=== PATIENT | male | born 1975 | race Caucasian/White ===

== ENCOUNTER 2018-04-22 16:52 | Outpatient (CLI) | payer BC, SELFPAY ==
[2018-04-22 17:28] LABS: Abs Immature Grans 0.02 k/cumm (0.0-0.09); Absolute Basophil Count 0.03 k/cumm (0.0-0.2); Absolute Eosinophil Count 0.18 k/cumm (0.0-0.7); Absolute Lymphocyte Count 2.54 k/cumm (1.2-3.4); Absolute Monocyte Count 0.61 k/cumm (0.11-0.7); Absolute Neutrophil Count 4.59 k/cumm (1.2-6.7); Basophils % 0.4; Eosinophils % 2.3; HCT 43.2 % (40.0-50.0); HGB 15.4 g/dL (13.5-17.5); Immature Grans % 0.3; Lymphocytes % 31.9; Mean Corp. HGB Concentration 35.6 g/dL (32.0-36.0); Mean Corpuscular Hemoglobin 31.6 pg (27.0-33.0); Mean Corpuscular Volume 88.5 fL (80-95); Mean Platelet Volume 9.3 fL (8.0-11.0); Monocytes % 7.7; Neutrophils % 57.4; Platelet Count 206 x1000/uL (130-400); RBC 4.88 m/cumm (4.50-6.00); RBC Distribution Width 12.5 % (11.8-14.1); White Blood Cell Count 7.97 k/cumm (4.4-10.8)
[2018-04-22 18:36] LABS: ALT 50 U/L (12-78); AST 30 U/L (15-37); Albumin 4.1 g/dL (3.4-5.0); Alkaline Phosphatase 71 U/L (46-116); Anion Gap 8.9 mmol/L (3-11); BUN 16 mg/dL (7-18); Bilirubin, Total 0.4 mg/dL (0.2-1.0); CO2 29.1 mmol/L (21.0-32.0); CREATININE 1.22 mg/dL (0.70-1.30); Calcium 8.6 mg/dL (8.5-10.1); Chloride 101 mmol/L (98-107); Glucose 113 mg/dL (70-100); Potassium 3.5 mmol/L (3.5-5.1); Sodium 139 mmol/L (136-145); Total Protein 7.2 g/dL (6.4-8.2)
[2018-04-22 20:46] LABS: Bilirubin Negative (Negative); Blood Negative (Negative); Clarity Clear; Glucose Negative (Negative); Ketones Trace mg/dL (Negative); Leukocyte Esterase Negative (Negative); Nitrite Negative (Negative); Specific Gravity >= 1.030 (1.005-1.025); Urobilinogen 0.2 EU/dL (Up TO 0.2); pH 5.5 (5-8)
[2018-04-24 08:44] LABS: PSA, Screening 0.7 ng/ml (0-2.5)
== END 2018-04-22 17:12 ==
PROVIDERS: PCP Family Medicine; Visit Provider Family Medicine
DX: N40.1 Benign prostatic hyperplasia with lower urinary tract symptoms (principal); Z12.5 Encounter for screening for malignant neoplasm of prostate; K29.60 Other gastritis without bleeding
CPT/HCPCS: 36415; 80053; 84153; 81003; 85025

== ENCOUNTER 2019-01-26 09:15 | Day surgery (SDC) | payer BC, SELFPAY ==
[2019-01-26] MEDS: Lactated Ringers 1,000 ML 80 ML IV (09:21)
[2019-01-26 09:31] VITALS: BP 131/89; PULSE 74; RESP 16; TEMP 36.5; O2SAT 99
[2019-01-26] MEDS: Sodium Citrate 30 ML CUP (12:30)
--- NOTE | 2019-01-26 13:14 | W.PM.DSUDISC ---
Discharge Plan Disposition Patient Disposition: HOME Condition: Good Discharge Details Reason For Visit: Colonoscopy Attending Provider: Cora Choi Primary Care Provider: Marc Arguelles Home Meds and New Rx's Prescriptions: Continued zinc [Chelated Zinc] 50 mg tablet 50 mg PO DAILY RF: 0 dutasteride 0.5 mg capsule 0.5 mg PO DAILY Qty: 30 RF: 11 albuterol sulfate [Ventolin HFA] 90 mcg/actuation HFA aerosol inhaler 2 puff IH Q4H PRN (Reason: shortness of breath or wheezing) Qty: 8.5 RF: 0 ibuprofen [IBU] 400 mg tablet 400 mg PO QID PRNRF: 0 Men's Daily Multivit-Mineral 0.4-600 mg-mcg tablet PO DAILY RF: 0 tamsulosin 0.4 mg capsule 0.4 mg PO HS Qty: 30 RF: 11 omeprazole 40 MG capsule,delayed release(DR/EC) 40 mg PO DAILY@0730 RF: 0 Discharge Instructions Additional Instructions: Findings: Mild diverticulosis was present. May sure to take in 30 grams of fiber daily. Your bleeding is from internal hemorrhoids. If a flare up occurs, it is okay to use Preparation H as needed. Follow up: Plan for a colonoscopy in 10 years Please call if you develop: fevers >101.5 Nausea or Vomiting Abdominal pain that is not transient DAY SURGERY UNIT POST COLONOSCOPY INSTRUCTIONS 1. Because there will be medication in your system for the next 24 hours, you may feel a little sleepy. Your coordination will be affected. Therefore: a. Do not drive or operate dangerous equipment for 24 hours. b. Do not drink alcohol beverages for 24 hours (not even beer). c. Plan to go home and rest for the day. 2. Generally there are no restrictions on your activity after a day or so has gone by, but you may feel a bit fatigued for a few days. 3 After you arrive home you may have a light meal and return to a normal diet as you can tolerate it without feeling sick to your stomach. 4. After surgery, you may feel pain or discomfort. This should be only transient, but if it persists please contact your doctor. 5. If there are any questions regarding the findings of your procedure, please feel free to contact your doctor. 6. If you are unable to contact your doctor with a problem, contact the hospital at [phone]. 7. Continue all your regular medications unless directed otherwise. I understand the above instructions and have no questions. Signature of Patient or Responsible Adult Escort Date/Time Name of Responsible Adult Escort Signature of Nurse Date/Time Activity:: Activity as Tolerated Diet:: High fiber Discharge Orders Discharge Orders: Discharge Order (Routine); Ordered 01/26/19 Ordered By: Cora Choi DS: Diagnosis Discharge Diagnosis (1) Diverticulosis: Status: Acute
[2019-01-26 13:40] VITALS: BP 122/88; PULSE 70; RESP 16; TEMP 36.2; O2SAT 98
--- NOTE | 2019-01-26 15:15 | COLE_ITS ---
DATE OF PROCEDURE: January 26, 2019 PREOPERATIVE DIAGNOSIS: 1. Rectal bleeding. 2. History of colon polyps. POSTOPERATIVE DIAGNOSIS: 1. Mild diverticulosis. 2. Internal hemorrhoids. PROCEDURE: Colonoscopy. SURGEON: Cora Choi M.D. ANESTHESIA: General. INDICATIONS: This is a 43-year-old man whose last colonoscopy in 2008 showed polyps. The patient jaime s intermittent episodes of rectal bleeding that will last a week or so. He had one recently that res olved spontaneously. PROCEDURE: He was placed in the left [place] position. Propofol was titrated to sedation. Digital rec fabian examination revealed no abnormalities. The scope was advanced to the cecum without difficulty. The ileocecal valve and appendiceal orifice were clearly identified. His prep was excellent. The sc ope was slowly withdrawn with no abnormalities seen within the ascending, transverse or descending co ashley. He was noted to have mild sigmoid diverticulosis. The rectum was normal, including on retrofle x view. He was noted to have prominent internal hemorrhoids, which are the likely source of bleeding . He tolerated the procedure well and was stable to recovery. He was advised to increase fiber inta ke and use Preparation H as needed for bleeding. He should have a follow-up colonoscopy again in ten years. cc: Marc Arguelles M.D.
== END 2019-01-26 13:53 | disposition home or self-care (01) ==
PROVIDERS: PCP Family Medicine; Visit Provider Surgery
PROC: 0DJD8ZZ Inspection of Lower Intestinal Tract, Via Natural or Artificial Opening Endoscopic (ICD-10-PCS; CPT 45378; principal; 2019-01-26 12:15)
DX: K62.5 Hemorrhage of anus and rectum (principal); Z86.010 Personal history of colon polyps; K57.30 Diverticulosis of large intestine without perforation or abscess without bleeding; K64.8 Other hemorrhoids; K21.9 Gastro-esophageal reflux disease without esophagitis
CPT/HCPCS: 45378

== ENCOUNTER 2019-07-01 16:19 | Outpatient (CLI) | payer OTHER, SELFPAY ==
[2019-07-01 16:44] LABS: HGB 15.3 g/dL (13.5-17.5); Mean Corp. HGB Concentration 35.6 g/dL (32.0-36.0); Mean Corpuscular Hemoglobin 31.5 pg (27.0-33.0); Mean Corpuscular Volume 88.7 fL (80-95); Mean Platelet Volume 9.5 fL (8.0-11.0); Platelet Count 210 x1000/uL (130-400); RBC 4.85 m/cumm (4.50-6.00); RBC Distribution Width 12.1 % (11.8-14.1); White Blood Cell Count 6.52 k/cumm (4.4-10.8)
[2019-07-01 16:55] LABS: Hemoglobin A1C 5.3 % (3.8-5.6)
[2019-07-01 17:01] LABS: Bilirubin Negative (Negative); Blood Negative (Negative); Clarity Clear (Clear); Glucose Negative (Negative); Ketones Negative (Negative); Leukocyte Esterase Negative (Negative); Nitrite Negative (Negative); Specific Gravity >= 1.030 (1.005-1.025)
[2019-07-01 17:11] LABS: ALT 42 U/L (16-63); AST 26 U/L (15-37); Albumin 3.9 g/dL (3.4-5.0); Alkaline Phosphatase 74 U/L (46-116); Anion Gap 8.3 mmol/L (3-11); BUN 19 mg/dL (7-18); Bilirubin, Total 0.4 mg/dL (0.2-1.0); CO2 28.7 mmol/L (21.0-32.0); CREATININE 1.19 mg/dL (0.70-1.30); Calcium 8.2 mg/dL (8.5-10.1); Calculated LDL 111 mg/dL (<100); Chloride 103 mmol/L (98-107); Cholesterol 200 mg/dL (<200); Glucose 108 mg/dL (74-106); HDL Cholesterol 44 mg/dL (40-60); Potassium 3.6 mmol/L (3.5-5.1); Sodium 140 mmol/L (136-145); Total Protein 6.9 g/dL (6.4-8.2); Triglyceride 225 mg/dL (<150)
[2019-07-05 11:27] LABS: PSA, Screening 0.4 ng/mL (0.0-2.5)
== END 2019-07-01 16:39 ==
PROVIDERS: PCP Family Medicine; Referring Provider Family Medicine; Visit Provider Nurse Practitioner Family
DX: R03.0 Elevated blood-pressure reading, without diagnosis of hypertension (principal); R73.02 Impaired glucose tolerance (oral); R39.11 Hesitancy of micturition; N13.8 Other obstructive and reflux uropathy; N40.1 Benign prostatic hyperplasia with lower urinary tract symptoms; Z12.5 Encounter for screening for malignant neoplasm of prostate
CPT/HCPCS: 36415; 80053; 80061; 84153; 85027; 81003; 83036

== ENCOUNTER 2019-11-26 13:44 | Outpatient (REF) | payer OTHER, SELFPAY ==
[2019-11-29 15:32] LABS: Chlamydia Result Negative (Negative); GC Result Negative (Negative)
== END 2019-11-26 14:04 ==
LOC: LBN 13:44
PROVIDERS: PCP Family Medicine; Visit Provider Nurse Practitioner Family
DX: Z20.2 Contact with and (suspected) exposure to infections with a predominantly sexual mode of transmission (principal); Z11.3 Encounter for screening for infections with a predominantly sexual mode of transmission
CPT/HCPCS: 87491; 87591

== ENCOUNTER 2020-06-30 01:52 | Outpatient (CLI) | payer OTHER, SELFPAY ==
[2020-06-30 16:58] LABS: HCT 45.4 % (40.0-50.0); HGB 16.2 g/dL (13.5-17.5); MCH 31.5 pg (27.0-33.0); MCHC 35.7 % (32.0-36.0); MCV 88.3 fL (80-95); MPV 9.3 fL (8.0-11.0); Platelet Count 210 10^3/uL (130-400); RBC 5.14 10^6/uL (4.36-5.78); RDW 11.9 % (11.8-14.1); RDW-SD 38.8 fL
[2020-06-30 18:51] LABS: ALT 50 U/L (16-63); AST 28 U/L (15-37); Alkaline Phosphatase 80 U/L (46-116); Anion Gap 7.4 mmol/L (3-11); BUN 18 mg/dL (7-18); Bilirubin, Total 0.4 mg/dL (0.2-1.0); CO2 28.6 mmol/L (21.0-32.0); CREATININE 1.2 mg/dL (0.70-1.30); Calcium 8.4 mg/dL (8.5-10.1); Chloride 102 mmol/L (98-107); Glucose 133 mg/dL (74-106); Potassium 3.8 mmol/L (3.5-5.1); Sodium 138 mmol/L (136-145); Total Protein 7.4 g/dL (6.4-8.2)
[2020-07-03 09:23] LABS: PSA, Screening 0.7 ng/mL (0.0-2.5)
== END 2020-06-30 01:53 | disposition home or self-care (01) ==
LOC: LBO 01:53
PROVIDERS: PCP Family Medicine; Visit Provider Family Medicine
DX: R73.02 Impaired glucose tolerance (oral) (principal); K21.00 Gastro-esophageal reflux disease with esophagitis, without bleeding; N13.8 Other obstructive and reflux uropathy; N40.1 Benign prostatic hyperplasia with lower urinary tract symptoms; Z12.5 Encounter for screening for malignant neoplasm of prostate
CPT/HCPCS: 36415; 80053; 84153; 85027

== ENCOUNTER 2022-06-17 02:56 | Outpatient (CLI) | payer SELFPAY ==
[2022-06-17 12:43] LABS: HCT 44.5 % (40.0-50.0); HGB 15.3 g/dL (13.5-17.5); MCH 31.9 pg (27.0-33.0); MCHC 34.4 % (32.0-36.0); MCV 93 fL (80-95); MPV 9.8 fL (8.0-11.0); Platelet Count 210 10^3/uL (130-400); RDW 12.1 % (11.8-14.1); RDW-SD 41.6 fL; WBC 5.36 10^3/uL (4.4-10.8)
[2022-06-17 12:54] LABS: Hemoglobin A1C 5.2 % (<5.7)
[2022-06-17 12:56] LABS: ALT 43 U/L (16-63); AST 32 U/L (15-37); Albumin 4.1 g/dL (3.4-5.0); Alkaline Phosphatase 77 U/L (46-116); Anion Gap 6.4 mmol/L (3-11); BUN 19 mg/dL (7-18); Bilirubin, Total 0.6 mg/dL (0.2-1.0); CO2 29.6 mmol/L (21.0-32.0); CREATININE 1.2 mg/dL (0.70-1.30); Calcium 8.8 mg/dL (8.5-10.1); Chloride 102 mmol/L (98-107); Estimated GFR 74.13 (mL/min/1.73m2); Glucose 100 mg/dL (74-106); Potassium 3.7 mmol/L (3.5-5.1); Sodium 138 mmol/L (136-145); Total Protein 7.1 g/dL (6.4-8.2)
[2022-06-18 10:14] LABS: PSA, Screening 0.6 ng/mL (<=2.5)
[2022-06-18 10:29] LABS: Hepatitis C Ab w Rflx HCV PCR Negative (Negative)
[2022-06-18 10:40] LABS: HIV-1/2 Ag & Ab Screen Negative (Negative)
== END 2022-06-17 02:57 | disposition home or self-care (01) ==
LOC: LOS 02:56
PROVIDERS: PCP Nurse Practitioner Family; Visit Provider Nurse Practitioner Family
DX: I10 Essential (primary) hypertension (principal); E78.1 Pure hyperglyceridemia; K21.00 Gastro-esophageal reflux disease with esophagitis, without bleeding; N13.8 Other obstructive and reflux uropathy; N40.1 Benign prostatic hyperplasia with lower urinary tract symptoms; Z12.5 Encounter for screening for malignant neoplasm of prostate; Z13.1 Encounter for screening for diabetes mellitus; Z11.59 Encounter for screening for other viral diseases; Z11.4 Encounter for screening for human immunodeficiency virus [HIV]
CPT/HCPCS: 36415; 80053; 84153; 85027; 86803; 87389; 83036

== ENCOUNTER 2023-05-10 10:40 | Outpatient (REF) | payer SELFPAY ==
[2023-05-10 15:32] LABS: Anion Gap 7.7 mmol/L (3-11); BUN 20 mg/dL (7-18); CO2 28.3 mmol/L (21.0-32.0); CREATININE 1.2 mg/dL (0.70-1.30); Chloride 103 mmol/L (98-107); Estimated GFR 73.67 (mL/min/1.73m2); Glucose 95 mg/dL (74-106); Sodium 139 mmol/L (136-145)
== END 2023-05-10 10:41 | disposition home or self-care (01) ==
LOC: LBN 10:40
PROVIDERS: PCP Nurse Practitioner Family; Visit Provider Nurse Practitioner Family
DX: I10 Essential (primary) hypertension (principal)
CPT/HCPCS: 80048

== ENCOUNTER 2024-05-20 09:20 | Outpatient (CLI) | payer SELFPAY ==
--- NOTE | 2024-05-20 09:15 | RT.EKG_ITS ---
APPROVED REPORT Exam: Resting ECG Reason for Exam: high pulse Patient Location: O HR:89 bpm ECG Measurements Heart Rate 89 AXIS NH 131 P 62 QRSd 81 QRS -14 QT 346 T 9 QTc 421 Conclusion Sinus rhythm...normal P axis, V-rate 50- 99 Normal Electrocardiogram
== END 2024-05-20 09:21 | disposition home or self-care (01) ==
LOC: DI.CM 09:22
PROVIDERS: PCP Nurse Practitioner Family; Visit Provider Nurse Practitioner Family
DX: R00.0 Tachycardia, unspecified (principal)
CPT/HCPCS: 93010

== ENCOUNTER 2024-05-20 09:30 | Outpatient (CLI) | payer SELFPAY ==
[2024-05-20 13:01] LABS: ALT 46 U/L (16-63); AST 27 U/L (15-37); Alkaline Phosphatase 84 U/L (46-116); BUN 21 mg/dL (7-18); Bilirubin, Total 0.66 mg/dL (0.2-1.0); CREATININE 1.1 mg/dL (0.70-1.30); Calcium 8.9 mg/dL (8.5-10.1); Calculated LDL 135 mg/dL (<100); Chloride 102 mmol/L (98-107); Cholesterol 233 mg/dL (<200); Estimated GFR 81.28 (mL/min/1.73m2); Glucose 93 mg/dL (74-106); HDL Cholesterol 54 mg/dL (40-60); Sodium 138 mmol/L (136-145); Total Protein 7.6 g/dL (6.4-8.2); Triglyceride 222 mg/dL (<150)
[2024-05-20 18:29] LABS: PSA, Screening 7.8 ng/mL (<=3.5)
== END 2024-05-20 09:31 | disposition home or self-care (01) ==
LOC: LOS 09:30
PROVIDERS: PCP Nurse Practitioner Family; Referring Provider Nurse Practitioner Family; Visit Provider Nurse Practitioner Family
DX: Z13.220 Encounter for screening for lipoid disorders (principal); N40.1 Benign prostatic hyperplasia with lower urinary tract symptoms; N13.8 Other obstructive and reflux uropathy
CPT/HCPCS: 36415; 80053; 80061; 84153

== ENCOUNTER 2024-05-24 02:08 | Outpatient (CLI) | payer SELFPAY ==
--- NOTE | 2024-05-24 06:13 | ETT_ITS ---
APPROVED REPORT Exam: Exercise Treadmill Patient Location: Out-Patient Room/Bed: Stress Nurse: Yoselin Diaz RN Ordering Provider:MINISTERIO TORREZ, Contact Number: [phone] BMI: 32.38 Baseline Rhythm: Normal Sinus Rhythm. Indications: Shortness of Breath on Exertion; Lightheadedness; Diaphoresis; Nausea. Medical History Medical History: HLD; HTN; GERD; Menetriere's Disease. Cardiac Medications: Lisinopril; Nitroglycerin; Omeprazole; Tamsulosin. Allergies: None. Cardiac Risk Factors: HLD; HTN; Former Smoker. Previous Cardiac Procedures: WPW; Ablation in 2004. Pretest Chest Pain Characteristics: None. Exercise History: Indeterminate. Physical Disabilities: None. Lung Sounds: Clear bilaterally throughout, anterior and posterior. Heart Sounds: S1 and S2 auscultated. Stress Test Details Test: Exercise stress testing was performed using a Armin protocol. Rest Stress HR Resting HR Supine: 92 bpm Max Heart Rate (APMHR): 169 bpm Resting HR Standin bpm Target HR (85% APMHR): 144 bpm Max HR Achieved: 171 bpm % of APMHR: 101 Recovery HR: 110 bpm HR response to stress: Normal HR response to stress. BP Resting BP Supine: 120/78 mmHg Resting BP Standin/86 mmHg Max BP: 142/68 mmHg Recovery BP: 122/72 mmHg BP response to stress: Normal blood pressure response to stress. ECG Resting ECG: Normal Sinus Rhythm. Ectopy: None. Stress ECG: Sinus Tachycardia. ST Change: No significant ST segment changes noted. Arrhythmia: None. Recovery ECG: Sinus Tachycardia. Recovery ST Change: No significant ST segment changes noted. Recovery Arrhythmia: None. Clinical Reason for Termination: Target HR Achieved. Stress Symptoms: Dyspnea. Exercise duration: 05 min30 sec Highest Stage Reached: Stage 2: 2.5 mph at 12% grade. Exercise capacity: 7.05 METs Angina Score: None Vasquez Treadmill Score: 5.5 Rate Pressure Product: 04950 Stress ECG Conclusion 1. Resting electrocardiogram showed low voltage and late transition 2. Patient exercised on the Armin protocol and completed workload of 7 METS 3. Normal heart rate and blood pressure response to activity. The patient achieved 100% of predicted heart rate for age 4. There was no electrocardiographic evidence of myocardial ischemia 5. There were no significant dysrhythmias Vasquez Treadmill Score is 5.5 which is Low risk. Stress Test Summary STAGE Time (mins) Speed (mph) Grade (%) HR BP SpO2 SYMPTOMS METS Supine 92 120/78 92 Standing 108 118/86 94 1 3 1.7 10 136 94 Pt. c/o mild shortness of breath. 4.5 2 6 2.5 12 169 94 Pt. c/o moderate shortness of breath. 7 1 min recovery 169 142/68 95 Pt. c/o moderate shortness of breath. 3 min recovery 120 140/78 97 Pt. c/o moderate to mild shortness of breath. 6 min recovery 111 122/72 96 Pt. c/o mild to minimal shortness of breath. 9 min recovery 110 96 Pt. denies any shortness of breath. All symptoms have resolved to b aseline. Pt. was conversing pleasantly with nursing staff upon leaving the Stress Lab. Pt. left ambulatory in no apparent distress.
== END 2024-05-24 02:28 ==
LOC: DI 02:08
PROVIDERS: PCP Nurse Practitioner Family; Visit Provider Nurse Practitioner Family
DX: R06.00 Dyspnea, unspecified (principal)
CPT/HCPCS: 93017

== ENCOUNTER 2024-06-11 02:16 | Outpatient (CLI) | payer SELFPAY ==
--- OUTSIDE RECORDS SUMMARY | 2024-06-11 02:52 | XMS_ITS | Clinical Summary ---
Author Organization [facility] Address [facility] [place] [address] Care Team Providers Care Shoe Repair Supervisor Name Role Phone None Primary Care Provider Unavailabl e Allergies No known active allergies Medications Medication Sig Dispensed Refills Start Date End Date Status Ginkgo Biloba 60 mg Capsule Take by mouth. Active Multivitamins Tablet, Chewable Take by mouth. Active omeprazole (PRILOSEC OTC) 20 mg Tablet, Delayed Release (E.C.) Take by mouth daily. Active omeprazole 20 mg Tablet, Delayed Release (E.C.) Take 2 tablets by mouth daily. 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 Hot snare biopsy of a fold with retrieval of specimen. 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 - Octreotide started 05/19/10, dose escalated 05/20/10, 05/23 - 05/07/10 EGD: severe nodular erythematous mucosa throughout the stomach. Biopsies were consistent with either Menetrier's disease vs. polyposis syndrome. He was started on PPI and zofran for his symptoms. Negative CMV and HP. - Started on Octreotide Depot 07/02/10 - 08/16/10 EGD: - Enlarged gastric folds. Consistent with his history of Menetrier's disease. There has been interval improvement since his last EGD in extent of involvement, thickeness of folds and mucus. History of colonic polyps 11/22/2010 Overview (02/16/2012): Two tubular adenomas in 2008 Palpitations Skin lesion of face Resolved Problems Problem Noted Date Diagnosed Date Resolved Date Gastropathy 09/24/2010 11/22/2010 Immunizations Name Administration Dates Next Due Tdap (Adacel, Boostrix) 07/02/2006 Family History Medical History Relation Comments Cancer Paternal Grandfather Cancer Paternal Grandmother Relation Status Comments Paternal Grandfather Paternal Grandmother Social History Tobacco Use Types Packs/Day Years Used Date Smoking Tobacco: Former Cigarettes 1 23 0 05/29/1987 - 05/29/2010 Smokeless Tobacco: Never Alcohol Use Standard Drinks/Week Comments Yes 6 (1 standard drink = 0.6 oz pur e alcohol) Sex and Gender Information Value Date Recorded Sex Assigned at Not on file Gender Identity Not on file Sexual Orientation Not on file Last Filed Vital Signs Vital Sign Reading Time Taken Comments Blood Pressure 153/98 07/21/2017 7:44 AM EST Pulse 81 07/21/2017 7:44 AM EST Temperature 36.9 ??C (98.4 ??F) 03/22/2013 1:14 PM ES T Respiratory Rate 16 08/31/2014 1:24 PM EDT Oxygen Saturation 95% 08/31/2014 1:24 PM EDT Inhaled Oxygen Concentration - - Weight 93.4 kg (205 lb 12.8 oz) 07/21/2017 7:44 AM EST Height 179.1 cm (5' 10.5) 07/21/2017 7:44 AM ES T Body Mass Index 29.11 07/21/2017 7:44 AM EST Plan of Treatment Health Maintenance Due Date Last Done Comments CT Colonography 1973 FIT DNA 1973 FIT 1973 Sigmoidoscopy 1973 Hepatitis C Screening 1991 Hepatitis B vaccine (0-59 yr s) (1) 1992 Lipid Screening 05/09/2015 05/09/2010 Tetanus/Diphtheria/Pertussis Vaccines (2 - Td or Tdap) 07/02/2016 07/02/2006 Colonoscopy 09/11/2022 09/11/2012, 08/18, 09/11/2012 Colorectal Cancer Screening 09/11/2022 Sigmoidoscopy (10 year) with FIT yearly 09/11/2022 09/11/2012, 09/11/2012, 09/11/2012 Pneumoccocal Vaccine: 50+ (1 of 1 - PCV) 2023 Zoster vaccine (1 of 2) 2023 Covid-19 Vaccine (1 - 2023-2 5 season) 2024 Influenza (Flu) vaccine (1 o f 1 - Influenza standard series) 01/18/2024 HIV screen Completed 04/04/2011 Diabetes Screening (HgbA1C o r Glucose) Discontinued 07/21/2017, 07/27/2014, 09/04/2012, Additional history exists Procedures Procedure Name Priority Date/Time Associated Diagnosis Comments COMPREHENSIVE METABOLIC PANEL Routine 07/21/2017 8:39 AM EST Gastroesophageal reflux disease without esophagitis COLONOSCOPY FLEXIBLE-WITH BX ([facility]) Routine 09/11/2012 5:09 PM EDT Menetrier disease Colon polyps HIV SCREEN, 4TH GENERATION ([facility]/CGP/APD/[facility])PERF ORMABLE Routine 04/04/2011 11:17 AM EST Penile lesion HDL/CHOL PROFILE Routine 05/09/2010 5:20 AM EST from Last 3 Months or Most Recently Relevant to Health Maintenance Results * Comprehensive metabolic panel (non-fasting) (07/21/2017 8:39 AM EST) Glucose 91 65 - 199 mg/dL [facility] Comment:Diabetes: >=200 mg/d L plus symptoms Blood Urea Nitrogen 14 10 - 20 mg/dL [facility] Creatinine 1.07 0.80 - 1.50 mg/dL [facility] Sodium 139 135 - 145 mmol/L [facility] Potassium 4.2 3.5 - 5.0 mmol/L [facility] Comment: Please note: ??Patients with WBC >100,000 may have falsely elevated Potassium levels. ??For accurate Potassium quantification in these patients send serum separator tube (gold top) for subsequent determinations. ??Contact the Clinical Chemistry Laboratory if there are any questions. Chloride 100 98 - 107 mmol/L [facility] Carbon Dioxide 27 22 - 31 mmol/L [facility] Anion Gap 12 5 - 15 mmol/L [facility] Calcium 8.6 8.5 - 10.5 mg/dL [facility] Protein, Total 7.1 6.1 - 8.0 gm/dL [facility] Albumin 4.5 3.2 - 5.2 gm/dL [facility] Aspartate Aminotransferase 31 0 - 39 unit/L [facility] Alanine Aminotransferase 41 0 - 55 unit/L [facility] Alkaline Phosphatase 71 40 - 120 unit/L [facility] Bilirubin, Total 0.5 0.2 - 1.3 mg/dL [facility] Est Glomerular Filtration Rate >60 >=60 [facility] Comment: The reported eGFR should be multiplied by 1.2 for patients. The MDRD is not an appropriate measure of renal function for patients with body mass extremes or in patients with acute kidney failure. http://[employer].Curb Call/DHnkdep http://[employer].com/DHMCnkf Blood specimen (specimen) 07/21/2017 8:39 AM EST 07/21/2017 8:44 AM EST Narrative Resulting Agency Comment Spec In Lab Abby Balderas CAROUSEL OPERATOR CHEMISTRY ORDERABLES [place] [address] * COLONOSCOPY (09/11/2012 4:07 PM EDT) COLONOSCOPY [facility] ___ Patient Name: Froy Spain ? Procedure Date: 09/11/2012 4:07 PM ? Date of : 1975 ? Age: 37 ? Order #: [id number] ? ___ Procedure: ? Colonoscopy Indications: ? High risk colon cancer surveillance: ? Personal history of non-advanced ? adenoma Providers: ? Karel. Nir Haque MD, Dilcia Cheng, ? RN, Avelina Barnes, Custom Designer, ? Tata Swartz MD Referring MD: ?Kaley Mike MD Medicines: ? Midazolam 0.5 mg IV, Fentanyl 100 ? micrograms IV, Diphenhydramine 25 mg ? IV Complications: ? No immediate complications. ___ Procedure: ? Pre-Anesthesia Assessment: ? - Prior to the procedure, a History ? and Physical was performed, and ? patient medications and allergies ? were reviewed. The patient is ? competent. The risks and benefits of ? the procedure and the sedation ? options and risks were discussed with ? the patient. All questions were ? answered and informed consent was ? obtained. Patient identification and ? proposed procedure were verified by ? the physician and the nurse in the ? pre-procedure area. Mental Status ? Examination: alert and oriented. ? Airway Examination: normal ? oropharyngeal airway and neck ? mobility. Respiratory Examination: ? clear to auscultation. CV ? Examination: normal. Prophylactic ? Antibiotics: The patient does not ? require prophylactic antibiotics. ? Prior Anticoagulants: The patient has ? taken no previous anticoagulant or ? antiplatelet agents. ASA Grade ? Assessment: I - A normal, healthy ? patient. After reviewing the risks ? and benefits, the patient was deemed ? in satisfactory condition to undergo ? the procedure. The anesthesia plan ? was to use moderate sedation / ? analgesia (conscious sedation). ? Immediately prior to administration ? of medications, the patient was ? re-assessed for adequacy to receive ? sedatives. The heart rate, ? respiratory rate, oxygen saturations, ? blood pressure, adequacy of pulmonary ? ventilation, and response to care ? were monitored throughout the ? procedure. The physical status of the ? patient was re-assessed after the ? procedure. ? The procedure, indications, benefits, ? risks and alternatives were explained ? to the patient. Specifically ? discussed were potential ? complications including, but not ? limited to, bleeding, perforation, ? infection, missing a cancer, and ? adverse medication reactions. The ? patient was placed in the left ? lateral decubitus position, and a ? digital rectal exam was performed. ? The was inserted in the anus and ? under direct visualization, advanced ? to the cecum, identified by ? appendiceal orifice & ileocecal ? valve. Careful inspection was made as ? the colonoscope was withdrawn. The ? colonoscopy was performed without ? difficulty. The patient tolerated the ? procedure fairly well. The quality of ? the bowel preparation was good. ? Findings: ? The perianal and digital rectal examinations were ? normal. ? Area of nodular, pearly mucosa noted in the rectum on ? retroflexion, just proximal to the dentate line. ? Biopsies were taken with a cold forceps for ? histology. No polyps found. ? Impression: ?- Focal area of nodular, pearly ? mucosa in rectum. This was biopsied. Recommendation: ?- Discharge patient to home (via ? wheelchair). ? - Await pathology results. ? - Repeat colonoscopy in 7 years or ? earlier depending on biopsy results. ? - Recommend that future colonoscopies ? should be done with anesthesia. ? - The attending physician listed ? above was present for the entire ? procedure. ? _ L. Nir Haque MD 09/11/2012 5:16 PM Number of Addenda: 0 Note Initiated On: 09/11/2012 4:07 PM [facility] 09/11/2012 4:07 PM EDT Kaley Mike MD GENERAL SURGICAL ORD ERABLES [facility] * HIV (04/04/2011 11:17 AM EST) HIV 1/2 Ab Negative [facility] Blood specimen (specimen) 04/04/2011 11:17 AM EST 04/04/2011 11:24 AM EST Irma Michaels MD CHEMISTRY ORDERABLE S Performing Organization Address City/[facility] Co de Phone Number [facility] * (ABNORMAL) HDL CHOLESTEROL (05/09/2010 5:20 AM EST) Cholesterol, Total 139 <=199 mg/dL [facility] Comment: Recommendations of the NCEP Adult Treatment Panel for the following risk cutoff thresholds for the [place] population: Desirable: <200 mg/dL Borderline High: 200-239 mg/dL High: > or = 240 mg/dL HDL Cholesterol 30(L) >=40 mg/dL [facility] Comment: Reference range: ??Low HDL: ?? < 40 mg/dL ??Normal: ?40-60 mg/dL ??Desirable: > 60 mg/dL MISSY 2001; 285(19):7952-4349 Cholesterol/HDL Ratio 4.6 ratio [facility] Comment: A Cholesterol to HDL ratio below 4:1 is desirable. ??Studies suggest that increased CAD risk occurs at ratios above 5 for females and above 6 for men. ? [place] Heart Association ??(http://www.americanheart.org) ? Kim Int Med, 1994; 121:641 ? AM J Med, 1998; 105(1A):48S Blood specimen (specimen) 05/09/2010 5:20 AM EST 05/09/2010 6:01 AM EST Connor ROACH ORDERABLES CERNER MILLENNIUM from Last 3 Months or Most Recently Relevant to Health Maintenance Care Teams Shoe Repair Supervisor Relationship Specialty Start Date End Date None None PCP - General 07/27/14
--- OUTSIDE RECORDS SUMMARY | 2024-06-11 02:52 | XMS_ITS | Encounter Summary ---
Author Organization [facility] Address [facility] [place] [address] Care Team Providers Care Research Psychologist Name Role Phone None Primary Care Provider Unavailabl e Encounter Details Date Type Department Care Team (Late st Contact Info) Description 02/22/2015 Telephone Gastroenterology at [facility] [place] [address] Dinora Olivas, RN Social History Tobacco Use Types Packs/Day Years Used Date Smoking Tobacco: Former Cigarettes 1 23 0 05/29/1987 - 05/29/2010 Smokeless Tobacco: Never Alcohol Use Standard Drinks/Week Comments Yes 6 (1 standard drink = 0.6 oz pur e alcohol) Sex and Gender Information Value Date Recorded Sex Assigned at Not on file Gender Identity Not on file Sexual Orientation Not on file documented as of this encounter Miscellaneous Notes * Telephone Encounter - Dinora Obregon - 02/22/2015 10:09 AM EDT Due for 6-month f/u (Jan.) per Serjio. nusrat w. new fellow ls x 1 01/06/2015 10:32AM VIKDP2 lvm x 1 01/17/2015 01:14PM VIKDP2 ls x 2 02/17/2015 03:56PM VIKDP2 Left VM & sent final letter. 02/22/2015 10:08AM SAYDA documented in this encounter Plan of Treatment Not on file documented as of this encounter Visit Diagnoses Not on filedocumented in this encounter Care Teams Research Psychologist Relationship Specialty Start Date End Date None None PCP - General 07/27/14 documented as of this encounter
--- OUTSIDE RECORDS SUMMARY | 2024-06-11 02:52 | XMS_ITS | Encounter Summary ---
Author Organization [facility] Address [facility] [place] [address] Care Team Providers Care Hand Coke Drawer Name Role Phone Zak Padilla MD Primary Care Provider Unavailabl e Reason for Visit * Reason Comments Procedure exc nasal dorsum cys t recurrent nasal bridge Encounter Details Date Type Department Care Team (Latest Contact Info) Description 03/09/2013 2:45 PM EDT Procedure [place] [id number] Jay Vasquez MD [facility] [place] [address] Epidermal inclusion cyst (Primary Dx) Discharge Disposition: Home Social History Tobacco Use Types Packs/Day Years [...] on file documented as of this encounter Patient Instructions * Patient Instructions* Charlee Camargo LPN - 03/09/2013 2:45 PM EDT Patient Instructions: Keep dry for 24 hours. You are able to get your face wet after 24 hours, please don't use any lotion or aftershave on yourface because it will desinigrate the glue on your stitches. Your stiches are dissolvable and do not have to be removed. Follow- up with Dr. Vasquez as needed. Keep head elevated for the first 48 hours, if you can sleep on two pillows to help reduce the swelling. Tylenol is appropriate for pain. Signs of Infection : A temperature over 100.4 F or 38 C. Redness at the incision line that is beginning to spread away from the incision after the first 48 hours. Yellow pus-like or foul smelling drainage larger than a dime size from the incision or drain sites. Increased pain / discomfort that is not relieved by your pain medicine. For any of these symptoms please call our nurse's line at [phone] m - F 8 - 5 documented in this encounter Progress Notes * Charlee Camargo LPN - 03/09/2013 2:44 PM EDT Plastic Surgery Minor Surgery Worksheet Skin Prep: Opthalmic iodine Grounding pad: Left side abdomen MNS 2 [place] [address] Cut. 12 Cog. 12 Adrenaline 1:1000 cc Marcaine 0.5% plain cc Marcaine 0.25% plain cc Marcaine 0.25% w/epi 1:200,000 cc Xylocaine 1% plain cc Xylocaine w/epi 1:200,000 cc Xylocaine w/epi 1:200,000 buffered w/ 8.4% NaBicarb 2 cc documented in this encounter Procedure Notes * Jay Vasquez MD - 03/09/2013 3:28 PM EDTAssociated Order(s): EXCIS BENIGN FACE,EARS,EYELIDS,NOSE,LIPS(MSO) Procedure(s): EXC SKIN BENIG 1.1-2CM FACE,FACIAL PRFM Pre-Procedure Diagnose(s): Epidermal inclusion cyst Procedure Note Plastic Surgery Procedure: excision cyst Anatomic Location: glabella Pre-op diagnosis: epidermal inclusion cyst Post-op diagnosis: same Consent: Written from patient after discussion of risks and benefits. Physicians: Jay Vasquez M.D. Anesthesia: Local with lidocaine 1% with epi Description: After anesthesia was provided, the site was prepped and draped in sterile fashion. A transverse incision was made in line with RSTL. Careful dissection proceeded bluntly around the cyst removing the cyst and entire capsule. The wound was irrigated and closed in layers with 4-0 vicryl. The cyst measured 1,3 cm Specimens: nasal cyst. Complications: none immediate EBL: minimal Disposition: Pt. tolerated the procedure well. documented in this encounter Miscellaneous Notes * Miscellaneous - Provider, Scanning - 2013 9:09 AM EDT documented in this encounter Plan of Treatment Not on file documented as of this encounter Procedures Procedure Name Priority Date/Time Associated Diagnosis Comments EXC SKIN BENIG 1.1-2CM FACE,FACIAL PRFM Routine 03/09/2013 3:59 PM EDT Epidermal inclusion cyst SPECIMEN TO PATHOLOGY Routine 03/09/2013 3:15 PM EDT SURGICAL PATHOLOGY REPORT Routine 03/09/2013 2:50 PM EDT documented in this encounter Results * EXC SKIN BENIG 1.1-2CM FACE,FACIAL PRFM (03/09/2013 3:59 PM EDT) Narrative Jay Vasquez MD - 03/09/2013 3:59 PM EDT Jay Vasquez MD ? 03/09/2013 ??3:59 PM Procedure Note Plastic Surgery Procedure: excision cyst Anatomic Location: glabella Pre-op diagnosis: epidermal inclusion cyst Post-op diagnosis: same Consent: Written from patient after discussion of risks and benefits. Physicians: Jay Vasquez M.D. Anesthesia: Local with lidocaine 1% with epi Description: After anesthesia was provided, the site was prepped and draped in sterile fashion. A transverse incision was made in line with RSTL. Careful dissection proceeded bluntly around the cyst removing the cyst and entire capsule. The wound was irrigated and closed in layers with 4-0 vicryl. The cyst measured 1,3 cm Specimens: nasal cyst. Complications: none immediate EBL: minimal Disposition: Pt. tolerated the procedure well. Procedure Note Jay Vasquez MD - 03/09/2013 3:28 PM EDT Procedure Note Plastic Surgery Procedure: excision cyst Anatomic Location: glabella Pre-op diagnosis: epidermal inclusion cyst Post-op diagnosis: same Consent: Written from patient after discussion of risks and benefits. Physicians: Jay Vasquez M.D. Anesthesia: Local with lidocaine 1% with epi Description: After anesthesia was provided, the site was prepped anddraped in sterile fashion. A transverse incision was made in line withRSTL. Careful dissection proceeded bluntly around the cyst removing thecyst and entire capsule. The wound was irrigated and closed in layers with4-0 vicryl. The cyst measured 1,3 cm Specimens: nasal cyst. Complications: none immediate EBL: minimal Disposition: Pt. tolerated the procedure well. Jay Vasquez MD DERM PROCEDURE ORDER HALEY * Specimen to Pathology (surgical or derm) (03/09/2013 3:15 PM EDT) AP Specimen 03/09/2013 3:15 PM EDT 03/09/2013 3:15 PM EDT [facility] 03/09/2013 3:15 PM EDT Specimen requisition ordered. ??Separate Pathology report to follow Jay Vasquez MD PATHOLOGY/CYTOLOGY O RDERABLES [facility] * Surgical Pathology Report (03/09/2013 2:50 PM EDT) Surgical Pathology Report ? [facility] ? Provider: ?? JAY VASQUEZ ? Pt. Name: ?? FROY CLARK ? Acc #: ?[id number] ? Pt. ? Col Date: ?? 03/09/2013 ?/Sex: ?1975,(38 years),Male ? Rec Date: ?? 03/09/2013 ?LOC: ?4M ? SURGICAL PATHOLOGY ? ---Pathologic Diagnosis--- ? Nasal bridge, excision: ?Epidermal inclusion cyst. ? CR-0 ? 03/10/13 ? [facility] ? 03/10/13 Verified by: ? Toni HEATH, PhD, [place] ? Dermatopathologist ? (Electronic Signature) ? The attending pathologist whose signature appears on this report has ? reviewed all diagnostic slides and has edited the gross and/or ? microscopic portion of the report in rendering the final pathologic ? diagnosis. ? ---Gross Description--- ? A - Labeled/Fixative: Excision nasal bridge, formalin. ? Quantity/Size: Single, 0.8 x 0.8 x 0.6 cm. ? Tissue Description: Disrupted, thin-walled cystic structure exuding ayala- ? white grumous material. ? Sections/Processing: Bisected. (T1) ??ejr ? ---Clinical Information--- ? Specimen Submitted: ? A - Nasal bridge, excision ? Clinical History: ? Recurrent cyst ? Clinical Diagnosis: ? Same [facility] 03/09/2013 2:50 PM EDT Jay Vasquez MD PATHOLOGY/CYTOLOGY O RDERABLES Performing Organization Address City/State/[facility] Co ma Phone Number [facility] documented in this encounter Visit Diagnoses Diagnosis Epidermal inclusion cyst- Primary Sebaceous cyst documented in this encounter Care Teams Hand Coke Drawer Relationship Specialty Start Date End Date Zak Padilla MD PCP - General 03/05/13 07/26/14 documented as of this encounter
--- OUTSIDE RECORDS SUMMARY | 2024-06-11 02:52 | XMS_ITS | Encounter Summary ---
Author Organization [facility] Address [facility] [place] [address] Care Team Providers Care Disk Recoater Name Role Phone Zak Padilla MD Primary Care Provider Unavailabl e Reason for Visit * Reason Comments Establish Care Annual Exam Encounter Details Date Type Department Care Team (Late st Contact Info) Description 03/22/2013 12:50 PM EST Office [place] [phone] Zak Padilla MD Menetrier disease (Primary Dx) Discharge Disposition: Home Social History [...] on file documented as of this encounter Last Filed Vital Signs Vital Sign Reading Time Taken Comments Blood Pressure 128/85 03/22/2013 1:14 PM EST Pulse 97 03/22/2013 1:14 PM EST Temperature 36.9 ??C (98.4 ??F) 03/22/2013 1 :14 PM EST Respiratory Rate 18 03/22/2013 1:14 PM EST Oxygen Saturation 96% 03/22/2013 1:1 4 PM EST room air Inhaled Oxygen Concentration - - Weight 87.5 kg (192 lb 12.8 oz) 03/22/2013 1:14 PM EST without shoes Height 176.5 cm (5' 9.5) 03/22/2013 1: 14 PM EST Body Mass Index 28.06 03/22/2013 1:14 PM EST documented in this encounter Progress Notes * Mack German MD - 03/22/2013 2:31 PM EST I have seen the patient and reviewed the resident's above history and I agree with the details as written. The assessment and plan were formulated in discussion with me and I agree with them as documented. 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 Still w/ some palps- seen by EP. 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 Now on PPI. -Colon polyps- 2008. 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 Poor diet. FH DM. HIV neg. LDL 87 2009, nl glu 08/29; Pertinent Exam: NC Major issues addressed: GI and cardiol FU for above. Counseled on risk for DM * Zak Padilla MD - 03/22/2013 1:36 PM EST HPI: 38 y/o M presents to establish care. No complaints today. 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 Presented to ED with prolonged several hour run of palpitations. Previously, since childhood, had occurred in runs of only 2-3 minutes and therefore not diagnosed. Most recently, wore Holter monitor in February 2013, which showed atrial tach / trigemeny but no VT. States that he sometimes still experiences palpitations, followed by EP. 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 N/V, no po intake one month prior to ED presentation. Endoscopy once a year. Off octreotide since 05/2011. BRBPR 2006. Multiple episodes over the course of 1 week. Colonoscopy showed polyps, which have beenfollowed since. Meds: Omeprazole 40 mg po daily. Allergies: NKDA SH: Born and raised in [place], [place]. Lives with . 4 children (8,10, 11, 13). Cat, residential, self employed. Remote tobacco abuse, 23 pack years, now quit successfully for 3 years. 8-10 beers/ week. No IVDU. Defers STD testing, HIV tested in the past. Diet includes sandwich, chips, and apple for lunch. Protein shake for breakfast. Meat and potatoes. Ice cream for desert. Usually drinks milk and power aid. Not concerned re: diet. No regular exercise. FH: Mother with DMII. Health Maint: LDL 87, HDL 30 in 2009. Colonoscopy in 2012, follow up in 2019. PE: BP 128/85 Pulse 97 Temp 36.9 ??C (98.4 ??F) (Oral) Resp 18 Ht 176.5 cm (5' 9.5) Wt 87.454 kg (192 lb 12.8 oz) BMI 28.06 kg/m2 SpO2 96% No LA CTABL S1 S2 RRR No MRG NT ND Complete skin exam without concerning lesions. A/P: 38 y/o M presents to establish care. No complaints. GI will continue to follow Menetrier's disease and perform upper GI endoscopy. Cardiology is following WPW. Health Maint: - Lipid panel to be repeated in 2014. - Colonoscopy in 7 years per GI. - Upper GI q1-2 years given ? Of elevated risk of adenocarcinoma with Menetrier's disease. - Encouraged patient to improve diet and exercise routine given elevated BMI documented in this encounter Plan of Treatment Not on file documented as of this encounter Visit Diagnoses Diagnosis Menetrier disease- Primary Gastric mucosal hypertrophy without mention of hemorrhage documented in this encounter Care Teams Disk Recoater Relationship Specialty Start Date End Date Zak Padilla MD PCP - General 03/05/13 07/26/14 documented as of this encounter
--- OUTSIDE RECORDS SUMMARY | 2024-06-11 02:52 | XMS_ITS | Encounter Summary ---
[place] [address] Care Team Providers Care Cash Control Specialist Name Role Phone Kaley Mike MD Primary Care Provider [phone] Reason for Visit * Reason Onset Date Comments Pre Procedure Call 02/28/2013 see documenta tion note Encounter Details Date Type Department Care Team (Late st Contact Info) Description 02/28/2013 Telephone [place] [phone] Mikaela Savage RN Pre Procedure Call (see documentation note) Social History Tobacco Use Types Packs/Day Years [...] encounter Miscellaneous Notes * Telephone Encounter - Mikaela Savage RN - 02/28/2013 3:37 PM EDT Pre-op Surgery Call Surgery: excision cyst bridge of nose Left message for pt. to call our clinic for review of instructions. documented in this encounter Plan of Treatment Not on file documented as of this encounter Visit Diagnoses Not on filedocumented in this encounter Care Teams Cash Control Specialist Relationship Specialty Start Date End Date Kaley Mike MD [address] [place] [address] PCP - General 08/31/10 03/04/13 documented as of this encounter
--- OUTSIDE RECORDS SUMMARY | 2024-06-11 02:52 | XMS_ITS | Encounter Summary ---
Author Organization [facility] Address [facility] [place] [address] Care Team Providers Care Engraver Block Name Role Phone None Primary Care Provider Unavailabl e Encounter Details Date Type Department Care Team (Latest Contact Info) Description 08/31/2014 11:45 AM EDT - 08/31/2014 2:00 PM EDT Hospital En[place] [phone] Nato Watters MD Discharge Disposition: Home Social History Tobacco Use [...] Sign Reading Time Taken Comments Blood Pressure 107/88 08/31/2014 1:24 PM EDT Pulse 87 08/31/2014 1:24 PM EDT Temperature - - Respiratory Rate 16 08/31/2014 1:24 PM EDT Oxygen Saturation 95% 08/31/2014 1:24 PM EDT Inhaled Oxygen Concentration - - Weight - - Height - - Body Mass Index - - documented in this encounter Discharge Instructions * Discharge Instructions* Kalyn Mclean RN - 08/31/2014 1:25 PM EDT UPPER GI ENDOSCOPY WHAT TO EXPECT AFTER THE PROCEDURE After the test you may feel a little more gassy or bloated than usual, this is normal. ACTIVITY Because of the sedation that you received Your judgement and reaction time are affected ?? Go home and rest quietly for the remainder of the day. You may resume your normal activities tomorrow. ?? Change from one position to the next slowly. You may lose your balance unexpectedly Be careful on stairs, as you may be unsteady on your feet. FOR THE NEXT 24 HRS ?? DO NOT DRIVE OR OPERATE ANY MACHINERY ?? DO NOT DRINK ALCOHOLIC BEVERAGES ?? DO NOT SIGN LEGAL DOCUMENTS ?? If you are a smoker: DO NOT SMOKE WHILE YOU ARE ALONE Diet ?? Start by eating small portions of foods that ordinarily will not upset your stomach. Be gentle with what you choose to start with. ?? Drink plenty of fluids ( unless otherwise told not to) Medications You may have a mild sore throat. Ice chips, popsicles, over the counter throat lozenges or spray may help numb your throat. This procedure should not cause a fever. IV SITE-- slight redness or tenderness is normal, you can use warm compresses if you get concerned.If the tenderness +/or redness increases or foul drainage and a red streak occurs, please contact your PCP immediately. WHEN SHOULD YOU CALL FOR HELP? Call 911 anytime you think that you need emergency care. For example, call if: You passed out (lost consciousness). You cough up blood. You vomit blood or what looks like coffee grounds. You pass maroon or very bloody stools. Call your healthcare provider or seek immediate medical attention if: You have trouble swallowing. You have belly pain. Your stools are black or tarlike or have streaks of blood. You are sick to your stomach or cannot keep fluids down. Watch closely for changes in your health, and be sure to contact your doctor IF Your throat still hurts after a day or two You do not get better as expected. [facility] [phone] 8a-5p Same Day Endo [phone] 7a-8p Otherwise contact [phone] and ask to speak to the media aid reduction plant supervisor Follow-up care is a araya part of your treatment and safety. Be sure to make and go to all appointments, and call your doctor if you are having problems. Instructions have been reviewed and patient expresses understanding * Patient Instructions* Nato Watters MD - 08/31/2014 1:23 PM EDT Please see Recommendations in the Provation procedure report which is documented in the procedural note in E-[facility]. documented in this encounter Medications at Time of Discharge Medication Sig Dispensed Refills Start Date End Date Ginkgo Biloba 60 mg Capsule Take by mouth. Multivitamins Tablet, Chewable Take by mouth. omeprazole (PRILOSEC) 10 mg Capsule, Delayed Release(E.C.) Take 4 capsules by mouth 2 times daily for 30 days. 240 capsule 3 08/02/2014 09/01/2014 documented as of this encounter Progress Notes * Heri Elise RN - 08/30/2014 1:08 PM EDT ENDOSCOPY PATIENT HISTORY Name: FROY CLARK : 1975 Age: 39 y.o. Address: [address] [place] [id number] (home) [phone] (work) Mobile: No relevant phone numbers on file. 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 Palpitations 785.1 ??? 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 History of colonic polyps V12.72 ??? Skin lesion of face 709.9 ??? 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 Follicular cyst [id number] ??? PVC's (premature ventricular contractions) 427.69 ??? Atrial ectopic tachycardia 427.89 Past Medical History: Past Medical History Diagnosis Date ??? Digestive problems ??? Heart disorder Past Surgical History: Past Surgical History Procedure Laterality Date ??? Cardiac surgery ??? Upper gi endoscopy, biopsy 05/02/2011 EGD WITH BIOPSY performed by Karel MADDOX at [facility] ENDOSCOPY ??? Upper gi endoscopy, biopsy 09/11/2012 UPPER GASTROINTESTINAL ENDOSCOPY,WITH BIOPSY SINGLE OR MULTIPLE performed by Karel Maddox MD at [facility] ENDOSCOPY ??? Colonoscopy, biopsy 09/11/2012 COLONOSCOPY FLEXIBLE, WITH BX performed by Karel Maddox MD at [facility] ENDOSCOPY ??? Cardiac catherization EP study with left sided pathway ablation Medications: Prior to Admission medications Medication Sig Start Date End Date Taking? Authorizing Provider omeprazole (PRILOSEC) 10 mg Capsule, Delayed Release(E.C.) Take 4 capsules by mouth 2 times daily for 30 days. 08/02/14 09/01/14 Serjio Wilder MD Ginkgo Biloba 60 mg Capsule Take by mouth. Provider, Historical Multivitamins Tablet, Chewable Take by mouth. Provider, Historical documented in this encounter H&P Notes * Nato Watters MD - 08/31/2014 12:59 PM EDT See faxed pcp notes; see gi consult note; menetriere's disease. Here for routine egd; stable for procedure; requires anesthesia due to very large amount of sedation before; risks explained; consent signed. documented in this encounter Plan of Treatment Not on file documented as of this encounter Procedures Procedure Name Priority Date/Time Associated Diagnosis Comments SURGICAL PATHOLOGY REPORT Routine 08/31/2014 1:23 PM EDT SPECIMEN TO PATHOLOGY Routine 08/31/2014 1:23 PM EDT EGD WITH BIOPSY (WRVU 2.39) 08/31/2014 1:00 PM EDT Menetrier disease UPPER GI ENDOSCOPY Routine 08/31/2014 12 :50 PM EDT documented in this encounter Results * Surgical Pathology Report (08/31/2014 1:23 PM EDT) Final Diagnosis ? [facility] ? Provider: ?? NATO WATTERS ? Pt. Name: ?? FROY CLARK ? Acc #: ?[id number] ?Pt. ? Col Date: ?? 08/31/2014 ? /Sex: ?1975,(39 years),Male ? Rec Date: ?? 08/31/2014 ? LOC: ?4T ? SURGICAL PATHOLOGY ? ---Pathologic Diagnosis--- ? A - Stomach, biopsy: ? - Gastric antral type mucosa with mild nonspecific reactive gastropathy ? only. (See Comment.) ? - No H. pylori-like organisms are identified. ? CR-0 ? 09/01/14 ? JRP ? 09/02/14 Verified by: ? Froy Flynn MD ? Pathologist ? (Electronic Signature) ? The attending pathologist whose signature appears on this report has ? reviewed all diagnostic slides and has edited the gross and/or ? microscopic portion of the report in rendering the final pathologic ? diagnosis. ? ---Comment--- ? The current case shows mild superficial foveolar hyperplasia, focal mucin ? depletion, and hyperemia consistent with mild nonspecific reactive/chemica l ? gastropathy. No cystic or polypoid hyperplastic changes are present to ? suggest recurrent Menetrier's disease. Prior slides from [id number] and S11- ? [id number] were reviewed and digitally scanned for future reference. ? ---Microscopic Description--- ? Whole slide scan: ? [id number] ? ---Gross Description--- ? A - Labeled/Fixative : Stomach, formalin. ? Quantity/Size: 12, averaging 0.4 cm. ? Tissue Description: Soft, torres-pink tissue. ? Sections/Process ing: (T3) ??ejr ? ---Clinical Information--- ? Specimen Submitted: ? A - Stomach ? Clinical History: ? History of Menetrier's disease ? [facility] ? Provider: ?? NATO WATTERS ? Pt. Name: ?? EDUAROD FROY Sandy ? Acc #: ?[id number] ?Pt. ? Col Date: ?? 08/31/2014 ? /Sex: ?1975,(39 years),Male ? Rec Date: ?? 08/31/2014 ? LOC: ?4T ? SURGICAL PATHOLOGY ? Clinical Diagnosis: ? Question resolution after treatment of recurrence of Menetrier's 09/02/2014 1:57 PM EDT [facility] GI Biopsy 08/31/2014 1:23 PM EDT 08/31/2014 1:23 PM EDT Nato Watters MD PATHOLOGY/CYTOLOGY O RDERABLES [facility] [place] [address] * Specimen to Pathology (surgical or derm) (08/31/2014 1:23 PM EDT) AP Specimen 08/31/2014 1:23 PM EDT 08/31/2014 1:23 PM EDT Narrative [facility] - 08/31/2014 1:23 PM EDT Specimen requisition ordered. ??Separate Pathology report to follow Nato Watters MD PATHOLOGY/CYTOLOGY Dhruv ULLOA [facility] * UPPER GI ENDOSCOPY (08/31/2014 12:50 PM EDT) UPPER GI ENDOSCOPY [facility] Endoscopy Patient Name: Froy Clark ? Procedure Date: 08/31/2014 12:50 PM ? N: [id number] ? Date of : 1975 ? Age: 39 ? Order #: [id number] ? Procedure: ? Upper GI endoscopy Indications: ? 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 to therapy. Providers: ? Nato Watters MD, Karol Harrell, GILDA, ? Frannie Olmos, Respite Coordinator Referring MD: ? Requesting Provider: Dr. Wilder Medicines: ? Monitored Anesthesia Care Complications: ? No immediate complications. Procedure: ? The procedure, indications, benefits, ? risks and alternatives were explained ? to the patient. Specifically ? discussed were potential ? complications including, but not ? limited to, bleeding, perforation, ? infection, missing a cancer, and ? adverse medication reactions. The ? Endoscope was introduced through the ? mouth, and advanced to the third part ? of duodenum. The patient tolerated ? the procedure well. The upper GI ? endoscopy was accomplished without ? difficulty. ? Findings: ? The examined duodenum was normal. ? Striped mildly erythematous mucosa without bleeding ? was found in the gastric antrum. No raised lesions ? noted with insufflation. Multiple (10 passes; 2 ? biopsies per pass) biopsies were taken with a cold ? forceps for histology to rule out Menetriere's ? disease. ? Patchy mildly erythematous mucosa without bleeding ? was found in the gastric body. Biopsies were taken ? with a cold forceps for histology. ? The gastric fundus was normal. ? The Z-line was regular and was found 40 cm from the ? incisors. ? The examined esophagus was normal. ? Impression: ?- Normal examined duodenum. ? - Erythematous mucosa in the antrum. ? Biopsied. ? - Erythematous mucosa in the gastric ? body. Biopsied. ? - Normal gastric fundus. ? - Z-line regular, 40 cm from the ? incisors. ? - Normal esophagus. Recommendation: ?- Await pathology results. ? - Letter to be sent to patient and ? provider in 10 days. ? - Return to primary care physician as ? previously scheduled. ? Procedure Code(s): ?? --- Professional --- ? 20762, Esophagogastroduo denoscopy, ? flexible, transoral; with biopsy, ? single or multiple CPT copyright 2014 [employer]. All rights reserved. The codes documented in this report are preliminary and upon commercial appraiser review may be revised to meet current compliance requirements. Attending Participation: ? I personally performed the entire procedure. ? Nato Watters MD 08/31/2014 1:29 PM This report has been signed electronically. Number of Addenda: 0 Note Initiated On: 08/31/2014 12:50 PM PROVATION 08/31/2014 12:5 0 PM EDT Unknown GENERAL SURGICAL ORD ERABLES PROVATION documented in this encounter Visit Diagnoses Not on filedocumented in this encounter Administered Medications Inactive Administered Medications - up to 3 most recent administrations Medication Order MAR Action Action Date Dose Rate Site lactated ringers infusion 100 mL/hr, Intravenous, CONTINUOUS, Starting on Fri08/31/14 at 1315, Until Fri08/31/14 at 1400, Endoscopy (Day of Procedure) New Bag 08/31/2014 1:15 PM EDT 100 mL/hr 100 mL/hr New Bag 08/31/2014 12:59 PM EDT documented in this encounter Active and Recently Administered Medications Times are shown in EDT. Continuous Medication Order 08/29/2014 08/30/2014 08/31/2014 lactated ringers infusion (CANCELED) 100 mL/hr, Intravenous, CONTINUOUS, Starting on Fri08/31/14 at 1315, Until Fri08/31/14 at 1400, Endoscopy (Day of Procedure) 1259 (New Bag - Prov ider: Arslan Ware)1315 (New Bag - Provider: Kalyn Mclean RN) documented in this encounter Care Teams Engraver Block Relationship Specialty Start Date End Date None None PCP - General 07/27/14 documented as of this encounter
--- OUTSIDE RECORDS SUMMARY | 2024-06-11 02:52 | XMS_ITS | Encounter Summary ---
Author Organization [facility] [place] [address] Care Team Providers Care Reading Assistant Name Role Phone None Primary Care Provider Unavailabl e Encounter Details Date Type Department Care Team (Latest Contact Info) Description 07/21/2017 8:00 AM EST Office [place] [address] Abby Balderas APRN [facility] [place] [address] Gastroesophageal reflux disease without esophagitis Social History Tobacco Use Types Packs/Day Years [...] Pulse 81 07/21/2017 7:44 AM EST Temperature - - Respiratory Rate - - Oxygen Saturation - - Inhaled Oxygen Concentration - - Weight 93.4 kg (205 lb 12.8 oz) 07/21/2017 7:44 AM EST Height 179.1 cm (5' 10.5) 07/21/2017 7:44 AM ES T Body Mass Index 29.11 07/21/2017 7:44 AM EST documented in this encounter Progress Notes * Abby Balderas RN - 07/21/2017 8:00 AM EST _25___minutes of this_30___-minute visit were spent in face to face discussion and/or counseling the patient, regarding symptoms and treatment options as detailed below. Pt last seen in 2014. Menetriere's disease. 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 In the past dx confirmed with egd bx. Treated with octreotide with resolution. Pt is taking Omeprazole otc 40mg qd. This controls his reflux sx. Few months ago was having early satiety and stomach would become rock hard post-prandially. These sx seem to have resolved. Right now is not having post-prandial sx. No dysphagia, odynophagia, n/v. When he was having the above sx he was having nausea. But this seems to have resolved. He altered intake of hard alcohol and this seem to be what has helped. Not awakening during the night with sx. Weight stable. 2014 egd: The examined duodenum was normal. ?Striped mildly erythematous mucosa without??bleeding ?was found in the gastric antrum. No raised lesions ?noted with insufflation. Multiple (10 passes; 2 ?biopsies per pass) biopsies were taken with a cold ?forceps for histology to rule out Menetriere's ?disease. ?Patchy mildly erythematous mucosa without bleeding ?was found in the gastric body. Biopsies were taken ?with a cold forceps for histology. ?The gastric fundus was normal. ?The Z-line was regular and was found 40 cm from the ?incisors. ?The examined esophagus was normal. ? Impression: ?- Normal examined duodenum. ?- Erythematous mucosa in the antrum. ?Biopsied. ?- Erythematous mucosa in the gastric ?body. Biopsied. ?- Normal gastric fundus. ?- Z-line regular, 40 cm from the ?incisors. ?- Normal esophagus. Recommendation: ?- Await pathology results. ?- Letter to be sent to patient and ?provider in 10 days. ?- Return to primary care physician as ?previously scheduled. No lower gi sx. Plan: 1. Gerd: continue with omeprazole 40mg qd. (faxed in script). If sx return then consider upper endoscopy. No sx or concerns for relapse of Menetriere's. gerd diet and lifestyle modifications. 2. Blood work today. 3. Pt to call gi prn documented in this encounter Miscellaneous Notes * Addendum Note - Josué George - 07/21/2017 8:34 AM ESTAddended by: JOSUÉ GEORGE on: 07/21/2017 08:34 AM Modules accepted: Orders documented in this encounter Plan of Treatment Not on file documented as of this encounter Procedures Procedure Name Priority Date/Time Associated Diagnosis Comments HEMOGRAM Routine 07/21/2017 8:39 AM EST Gastroesophageal reflux disease without esophagitis DIFFERENTIAL, AUTOMATED Routine 07/21/2017 8:39 AM EST Gastroesophageal reflux disease without esophagitis CBC (WITH DIFF) Routine 07/21/2017 8:39 AM EST Gastroesophageal reflux disease without esophagitis PREALBUMIN Routine 07/21/2017 8:39 AM EST Gastroesophageal reflux disease without esophagitis COMPREHENSIVE METABOLIC PANEL Routine 07/21/2017 8:39 AM EST Gastroesophageal reflux disease without esophagitis documented in this encounter Results * Differential, Automated (07/21/2017 8:39 AM EST) Neutrophil % 55.3 % [facility] Neutrophil Absolute 3.55 1.70 - 6.10 x10(3)/[facility] Lymph % 30.6 % [facility] Lymphocytes Abs 2.0 0.9 - 3.2 x10(3)/[facility] Monocyte % 10.0 % [facility] Monocyte Abs 0.6 0.3 - 0.9 x10(3)/[facility] Eos % 3.3 % [facility] Eosinophils Abs 0.2 0.0 - 0.4 x10(3)/[facility] Basophil % 0.6 % [facility] Baso Absolute 0.0 0.0 - 0.1 x10(3)/[facility] Immature Gran % 0.20 % [facility] Comment: Immature granulocytes(IG's)percentage and absolute count will include metamyelocytes, myelocytes, and promyelocytes. Blood smears from CBCs yielding IG's will be scanned manually for concordance. If this scan disagrees with the automated IG or if promyelocytes are noted, a manual differential will be performed. Immature Gran Absolute 0.01 0.00 - 0.04 x10(3)/[facility] Blood specimen (specimen) 07/21/2017 8:39 AM EST 07/21/2017 8:44 AM EST Narrative Resulting Agency Comment Spec In Lab Abby Balderas METAL COATER OPERATOR HEMATOLOGY ORDERABLE S [facility] [place] [place] [address] * Hemogram (07/21/2017 8:39 AM EST) White Blood Cell 6.4 4.0 - 9.5 x10(3)/[facility] Red Blood Cell 5.30 4.58 - 5.54 x10(6)/[facility] Hemoglobin 16.5 13.7 - 16.5 gm/dL [facility] Hematocrit 46.3 40.5 - 48.5 % [facility] Mean Cell Volume 87.4 82.9 - 93.1 fL [facility] Mean Cell Hemoglobin 31.1 27.5 - 32.1 pg [facility] Mean Cell Hemoglobin Concentration 35.6 32.0 - 35.7 gm/dL [facility] Platelet 209 145 - 357 x10(3)/[facility] RDW Standard Deviation 39.3 36.0 - 45.0 [facility] RDW coefficient of variation 12.2 11.4 - 13.8 % [facility] Mean Platelet Volume 9.4 7.6 - 12.9 [facility] NRBC% auto 0.0 % [facility] NRBC Absolute 0.000 0.000 - 0.000 x10(3)/[facility] Blood specimen (specimen) 07/21/2017 8:39 AM EST 07/21/2017 8:44 AM EST Narrative Resulting Agency Comment Spec In Lab Abby Balderas APRN HEMATOLOGY ORDERABLE S Performing Organization Address City/[facility]/ZIP Co de Phone Number [facility] [place] [address] * Prealbumin (07/21/2017 8:39 AM EST) Prealbumin 38 20 - 40 mg/dL [facility] Comment: Prealbumin levels are generally lower in the pediatric population; adult concentrations are usually attained near puberty. Blood specimen (specimen) 07/21/2017 8:39 AM EST 07/21/2017 8:44 AM EST Narrative Resulting Agency Comment Spec In Lab Abby Balderas APRN CHEMISTRY ORDERABLES Performing Organization Address [facility] Co de Phone Number [facility] [place] [place] [address] * Comprehensive metabolic panel (non-fasting) (07/21/2017 8:39 AM EST) Glucose 91 65 - 199 mg/dL [facility] Comment:Diabetes: >=200 mg/d L plus symptoms Blood Urea Nitrogen 14 10 - 20 mg/dL [facility] Creatinine 1.07 0.80 - 1.50 mg/dL [facility] Sodium 139 135 - 145 mmol/L [facility] Potassium 4.2 3.5 - 5.0 mmol/L [facility] Comment: Please note: ??Patients with WBC >100,000 may have falsely elevated Potassium levels. ??For accurate Potassium quantification in these patients send serum separator tube (gold top) for subsequent determinations. ??Contact the Clinical Chemistry Laboratory if there are any questions. Chloride 100 98 - 107 mmol/L [facility] Carbon Dioxide 27 22 - 31 mmol/L [facility] Anion Gap 12 5 - 15 mmol/L [facility] Calcium 8.6 8.5 - 10.5 mg/dL [facility] Protein, Total 7.1 6.1 - 8.0 gm/dL [facility] Albumin 4.5 3.2 - 5.2 gm/dL [facility] Aspartate Aminotransferase 31 0 - 39 unit/L [facility] Alanine Aminotransferase 41 0 - 55 unit/L [facility] Alkaline Phosphatase 71 40 - 120 unit/L [facility] Bilirubin, Total 0.5 0.2 - 1.3 mg/dL [facility] Est Glomerular Filtration Rate >60 >=60 [facility] Comment: The reported eGFR should be multiplied by 1.2 for patients. The MDRD is not an appropriate measure of renal function for patients with body mass extremes or in patients with acute kidney failure. http://[employer]/DHnkdep http://[employer]/DHMCnkf Blood specimen (specimen) 07/21/2017 8:39 AM EST 07/21/2017 8:44 AM EST Narrative Resulting Agency Comment Spec In Lab Abby Balderas METAL COATER OPERATOR CHEMISTRY ORDERABLES [facility] [place] [place] [address] documented in this encounter Visit Diagnoses Diagnosis Gastroesophageal reflux disease without esophagitis Esophageal reflux documented in this encounter Care Teams Reading Assistant Relationship Specialty Start Date End Date None None PCP - General 07/27/14 documented as of this encounter
--- OUTSIDE RECORDS SUMMARY | 2024-06-11 02:52 | XMS_ITS | Encounter Summary ---
Author Organization [facility] [place] [address] Care Team Providers Care Internship Coordinator Name Role Phone None Primary Care Provider Unavailabl e Reason for Visit * Reason Onset Date Comments Medication Refill 07/29/2014 Omeprazole Encounter Details Date Type Department Care Team (Late st Contact Info) Description 07/29/2014 Ref[place] [address] Natalya Levine MA Social History Tobacco Use Types Packs/Day Years [...] on file documented as of this encounter Plan of Treatment Not on file documented as of this encounter Visit Diagnoses Not on filedocumented in this encounter Care Teams Internship Coordinator Relationship Specialty Start Date End Date None None PCP - General 07/27/14 documented as of this encounter
--- OUTSIDE RECORDS SUMMARY | 2024-06-11 02:52 | XMS_ITS | Encounter Summary ---
Author Organization [facility] Address [facility] [place] [address] Care Team Providers Care Certified Public Accountant Name Role Phone None Primary Care Provider Unavailabl e Encounter Details Date Type Department Care Team (Late st Contact Info) Description 07/27/2014 3:00 PM EDT [place] [id number] Serjio Wilder MD [facility] DR GASTROENTEROLOGY [place] [address] Menetrier disease Discharge Disposition: Home Social History Tobacco Use [...] Sign Reading Time Taken Comments Blood Pressure 140/88 07/27/2014 2:55 PM EDT Pulse 87 07/27/2014 2:55 PM EDT Temperature - - Respiratory Rate - - Oxygen Saturation - - Inhaled Oxygen Concentration - - Weight 97.2 kg (214 lb 4.8 oz) 07/27/2014 2:55 P M EDT Height 179.1 cm (5' 10.5) 07/27/2014 2:55 PM ED T Body Mass Index 30.31 07/27/2014 2:55 PM EDT documented in this encounter Progress Notes * Ramírez Rivera MD - 09/16/2014 3:59 PM EDT Discussed with Dr. Wilder and agree with plans as outlined. 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 Hot snare biopsy of a fold with retrieval of specimen. 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 - Octreotide started 05/19/10, dose escalated 05/20/10, 05/23 - 05/07/10 EGD: severe nodular erythematous mucosa throughout the stomach. Biopsies were consistentwith either Menetrier's disease vs. polyposis syndrome. He was started on PPI and zofran for his symptoms. Negative CMV and HP. - Started on Octreotide Depot 07/02/10 - 08/16/10 EGD: - Enlarged gastric folds. Consistent with his history of Menetrier's disease. There has been interval improvement since his last EGD in extent of involvement, thickeness of folds and mucus. - 11/21/2010: Octreotide increased to 20mg qmonthly due to abdominal discomfort and mild nausea. -08/2012 EGD: - Prominet gastric folds in cardia and body, more prominent than last EGD Path:Gastric antral and fundic gland mucosa with mild nonspecific reactive gastropathy and nonspecific parietal cell alterations of the type sometimes seen in hypergastrinemic conditions or in patients on PPI therapy. No H. pylori-like microorganism is seen. There is no foveolar hyperplasia or cystic dilatation to suggest diagnosisof Menetrier disease as seen in previous biopsies ([id number]). Interval history: Patient returns for follow up of hx of Menetrier's disease. Previously on Octreotide depot formulation q4 weeks. Since reports over past 2 years has stopped as he reports no symptoms. He reports wellcontrolled reflux symptoms returning again despite compliance on 40 mg Omeprazole. Denies dysphagia. Denies abd pain. Denies N/V, regular BM's. Denies ED/hosptial visits. Denies melena. Denies bleeding. Denies weight loss. EGD set up later this year. Small NSAIDs. Past Medical History: Colonic polyps - 2TAs and 1 HP 2008 -08/2012 colonoscopy:The perianal and digital rectal examinations were normal. Area of nodular, pearly mucosa noted in the rectum on retroflexion, just proximal to the dentate line. Biopsies were taken with a cold forceps for histology. No polyps found. Path: Benign anorectal junctional mucosa with crypt hyperplasia and reactive lymphoid hyperplasia. ?WPW/. Preexcitation with accessory pathway. Ho SVT s/p ablation 2004 GERD Physical Exam: BP 140/88 Pulse 87 Ht 179.1 cm (5' 10.5) Wt 97.206 kg (214 lb 4.8 oz) BMI 30.30 kg/m2 A,Ox3, NAD PERRL, EOMI, anicteric. No oral lesions. RRR no M LUNGS: CTA Abdomen has normoactive BS. Soft, ND. no HSM. No LE edema. Pertinent lab/imaging/endoscopy workup to date: No new labs (reviewed 08/29 labs), CBC/BMP nl Assessment: Mr. Froy Spain is a pleasant 37 yo WM, PMH s/o Menetrier's disease (dx 2010, pathology consistentwith full-thickness foveolar epithelium hyperplasia including dilated gastric pits-hyperplastic gastropathy), previously on Octreotide depot [id number]. He demonstrated endoscopic and clinical improvement with Octreotide. He has been now off Octreotide for 1.5 years, remains on PPI QD, today presents to re-establish care, remains asymptomatic. - Will perform EGD to reassess Menetrier's disease and also for surveillance for gastric cancer (risk varies from 2-15%, rec q1-2 yr surveillance) - Continue PPI daily - Basic lab work including CBC, Hepatic panel (albumin) and BMP. - Follow up in 1 year Of note, will forego restarting somatostatin analogue given lack of symptoms at this time, pathology without evidence of hyperplastic gastropathy in 2013 EGD. Octreotide for Menetrier's disease is not an FDA approved therapy, reported in case reports thought to down regulate EGFR signaling downstream. Serjio Wilder MD GI fellow [id number] documented in this encounter Plan of Treatment Scheduled Orders Name Type Priority Associated Diagnoses Orde r Schedule UPPER GI ENDOSCOPY Procedures Routine Menetrier disease Ordered: 07/27/2014 documented as of this encounter Procedures Procedure Name Priority Date/Time Associated Diagnosis Comments HEMOGRAM Routine 07/27/2014 4:08 PM EDT Menetrier disease DIFFERENTIAL, AUTOMATED Routine 07/27/2014 4:08 PM EDT Menetrier disease VITAMIN D, 25-HYDROXY Routine 07/27/2014 4:08 PM EDT Menetrier disease CBC (WITH DIFF) Routine 07/27/2014 4:08 PM EDT Menetrier disease TSH Routine 07/27/2014 4:08 PM EDT Menetrier disease COMPREHENSIVE METABOLIC PANEL Routine 07/27/2014 4:08 PM EDT Menetrier disease documented in this encounter Results * Differential, Automated (07/27/2014 4:08 PM EDT) Neutrophil % 51.6 % CERNER MILLENNIUM Neutrophil Absolute 3.40 1.50 - 6.30 x10(3)/mcL CERNER MILLENNIUM Lymph % 35.9 % CERNER MILLENNIUM Lymphocytes Abs 2.4 1.0 - 3.6 x10(3)/mcL CERNER MILLENNIUM Monocyte % 9.0 % CERNER MILLENNIUM Monocyte Abs 0.6 0.2 - 1.0 x10(3)/mcL CERNER MILLENNIUM Eos % 3.0 % CERNER MILLENNIUM Eosinophils Abs 0.2 0.0 - 0.5 x10(3)/mcL CERNER MILLENNIUM Basophil % 0.5 % CERNER MILLENNIUM Baso Absolute 0.0 0.0 - 0.2 x10(3)/mcL CERNER MILLENNIUM Immature Gran % 0.00 % CERN ER MILLENNIUM Comment: Immature granulocytes(IG's)percentage and absolute count will include metamyelocytes, myelocytes, and promyelocytes. Blood smears from CBCs yielding IG's will be scanned manually for concordance. If this scan disagrees with the automated IG or if promyelocytes are noted, a manual differential will be performed. Immature Gran Absolute 0.00 0.00 - 0.05 x10(3)/mcL CERNER MILLENNIUM Blood specimen (specimen) 07/27/2014 4:08 PM EDT 07/27/2014 4:12 PM EDT Narrative Resulting Agency Comment Spec In Lab Ramírez Rivera MD HEMATOLOGY ORDERABLE S CERNER MILLENNIUM * Hemogram (07/27/2014 4:08 PM EDT) White Blood Cell 6.6 4.0 - 10.0 x10(3)/mcL CERNER MILLENNIUM Red Blood Cell 4.94 4.63 - 6.08 x10(6)/mcL CERNER MILLENNIUM Hemoglobin 15.4 13.7 - 17.5 gm/dL CERNER MILLENNIUM Hematocrit 43.3 40.0 - 51.0 % CERNER MILLENNIUM Mean Cell Volume 87.7 79.0 - 92.0 fL CERNER MILLENNIUM Mean Cell Hemoglobin 31.2 25.6 - 32.2 pg CERNER MILLENNIUM Mean Cell Hemoglobin Concentration 35.6 32.0 - 36.5 gm/dL CERNER MILLENNIUM Platelet 191 145 - 370 x10(3)/mcL CERNER MILLENNIUM RDW Standard Deviation 39.7 35.0 - 46.0 fL CERNER MILLENNIUM RDW coefficient of variation 12.4 10.9 - 14.4 % CERNER MILLENNIUM Mean Platelet Volume 9.3 9.0 - 12.0 fL CERNER MILLENNIUM Blood specimen (specimen) 07/27/2014 4:08 PM EDT 07/27/2014 4:12 PM EDT Narrative Resulting Agency Comment Spec In Lab Ramírez Rivera MD HEMATOLOGY ORDERABLE S Performing Organization Address [facility] Co de Phone Number [facility] * TSH (07/27/2014 4:08 PM EDT) Pathologist [facility] Thyroid Stimulating Hormone 2.00 0.27 - 4.20 mcIU/mL [facility] Blood specimen (specimen) 07/27/2014 4:08 PM EDT 07/27/2014 4:12 PM EDT Narrative Resulting Agency Comment Spec In Lab Ramírez Rivera MD CHEMISTRY ORDERABLES Performing Organization Address [facility] de Phone Number [facility] * VIT D Total Evaluation (07/27/2014 4:08 PM EDT) [facility] Vitamin D Total 25 OH 40 30 - 100 ng/mL [facility] Comment: Deficient <10 ng/mL Insufficient 10 to 29 ng/mL Sufficient 30 to 100 ng/mL Potential Intoxication >100 ng/mL According to the [place] National Osteoporosis Foundation, Vitamin D concentrations >30 ng/mL are sufficient to protect bone health. ??The National Kidney Foundation has similarly stated that patients with Vitamin D concentrations <30ng/mL should be considered to be insufficient or deficient. http://CareOne/DHnatlkidneyfoundation http://CareOne/DHMCVitD The [employer] i[employer] Vitamin D Immunoassay detects both 25-OH Vitamin D2 and 25-OH Vitamin D3, but only a total Vitamin D concentration is reported. Blood specimen (specimen) 07/27/2014 4:08 PM EDT 07/27/2014 4:12 PM EDT Narrative Resulting Agency Comment Spec In Lab Ramírez Rivera MD CHEMISTRY ORDERABLES Performing Organization Address [facility] de Phone Number [facility] * Comprehensive metabolic panel (non-fasting) (07/27/2014 4:08 PM EDT) Pathologist [facility] Glucose 101 60 - 199 mg/dL [facility] Comment:Diabetes: >=200 mg/d L plus symptoms Blood Urea Nitrogen 18 10 - 20 mg/dL CERNER MILLENNIUM Creatinine 1.18 0.80 - 1.50 mg/dL CERNER MILLENNIUM Comment: Please note that the pediatric reference intervals supplied above were not validated at [facility]. Results from pediatric patients should be interpreted in conjunction to the patient's age, height and muscle mass. Sodium 140 135 - 145 mmol/L CERNER MILLENNIUM Potassium 3.7 3.5 - 5.0 mmol/L CERNER MILLENNIUM Comment: Please note: ??Patients with WBC >100,000 may have falsely elevated Potassium levels. ??For accurate Potassium quantification in these patients send serum separator tube (gold top) for subsequent determinations. ??Contact the Clinical Chemistry Laboratory if there are any questions. Chloride 101 98 - 107 mmol/L CERNER MILLENNIUM Carbon Dioxide 27 22 - 31 mmol/L CERNER MILLENNIUM Anion Gap 12 5 - 15 mmol/L CERNER MILLENNIUM Calcium 8.8 8.5 - 10.5 mg/dL CERNER MILLENNIUM Protein, Total 7.0 6.1 - 8.0 gm/dL CERNER MILLENNIUM Albumin 4.4 3.2 - 5.2 gm/dL CERNER MILLENNIUM Aspartate Aminotransferase 26 0 - 39 unit/L CERNER MILLENNIUM Alanine Aminotransferase 37 0 - 55 unit/L CERNER MILLENNIUM Alkaline Phosphatase 61 40 - 120 unit/L CERNER MILLENNIUM Bilirubin, Total 0.3 0.2 - 1.3 mg/dL CERNER MILLENNIUM Bilirubin, Direct 0.1 0.0 - 0.3 mg/dL CERNER MILLENNIUM Est Glomerular Filtration Rate >60 >=60 CERNER MILLENNIUM Comment: This estimated GFR (eGFR) value was calculated using the MDRD equation which has been validated on patients between the ages of 18 and 70. The MDRD should not be used to assess kidney function in patients < 18 years of age or in patients with extremes of body mass, or in patients with acute kidney failure. This value should be multiplied by 1.2 for patients. For further information please copy and paste the following links into your internet browser. http://CareOne/DHnkdep http://CareOne/DHMCnkf Blood specimen (specimen) 07/27/2014 4:08 PM EDT 07/27/2014 4:12 PM EDT Narrative Resulting Agency Comment Spec In Lab Ramírez Rivera MD CHEMISTRY ORDERABLES Performing Organization Address City/State/[facility] Co [place] Phone Number [facility] documented in this encounter Visit Diagnoses Diagnosis Menetrier disease Gastric mucosal hypertrophy without mention of hemorrhage documented in this encounter Care Teams Certified Public Accountant Relationship Specialty Start Date End Date None None PCP - General 07/27/14 documented as of this encounter
--- OUTSIDE RECORDS SUMMARY | 2024-06-11 02:52 | XMS_ITS | Encounter Summary ---
Author Organization [facility] [place] [address] Care Team Providers Care Glass Etcher Helper Name Role Phone None Primary Care Provider Unavailabl e Encounter Details Date Type Department Care Team (Late st Contact Info) Description 08/31/2014 1:00 PM EDT - 08/31/2014 1:30 PM EDT Surgery [place] [phone] Nato Watters MD EGD WITH BIOPSY (WRVU 2.39) Social History Tobacco Use Types Packs/Day Years [...] not get better as expected. Friday-Friday Clinic [phone] 8a-5p Same Day Endo [phone] 7a-8p Otherwise contact [phone] and ask to speak to the vocational ed instructor demolition specialist Follow-up care is a araya part of [...] PM EDT ENDOSCOPY PATIENT HISTORY Name: FROY SPAIN : 1975 Age: 39 y.o. Address: [address] [place] [phone] (home) [phone] (work) Mobile: No relevant phone numbers on file. 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 Palpitations 785.1 ??? 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 History of colonic polyps V12.72 ??? Skin lesion of face 709.9 ??? 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 Follicular cyst [id number] ??? PVC's (premature ventricular contractions) 427.69 ??? Atrial ectopic tachycardia 427.89 Past Medical History: Past Medical History Diagnosis Date ??? Digestive problems ??? Heart disorder Past Surgical History: Past Surgical History Procedure Laterality Date ??? Cardiac surgery ??? Upper gi endoscopy, biopsy 05/02/2011 EGD WITH BIOPSY performed by Karel MADDOX at [facility] ENDOSCOPY ??? Upper gi endoscopy, biopsy 09/11/2012 UPPER GASTROINTESTINAL ENDOSCOPY,WITH BIOPSY SINGLE OR MULTIPLE performed by Karel Maddox MD at [facility] ENDOSCOPY ??? Colonoscopy, biopsy 09/11/2012 COLONOSCOPY FLEXIBLE, WITH BX performed by Karel Maddox MD at [facility] ENDOSCOPY ??? Cardiac catherization EP study with [...] (08/31/2014 1:23 PM EDT) Final Diagnosis ? [facility] ? Provider: ?? NAOT WATTERS ? Pt. Name: ?? FROY SPAIN ? Acc #: ?[id number] ?Pt. ? Col Date: ?? 08/31/2014 ? /Sex: ?1975,(39 years),Male ? Rec Date: ?? 08/31/2014 ? LOC: ?4T ? SURGICAL PATHOLOGY ? ---Pathologic Diagnosis--- ? A - Stomach, biopsy: ? - Gastric antral type mucosa with mild nonspecific reactive gastropathy ? only. (See Comment.) ? - No H. pylori-like organisms are identified. ? CR-0 ? 09/01/14 ? JRP ? 09/02/14 Verified by: ? Gee HEATH, Froy Delgado ? Pathologist ? (Electronic Signature) ? The [...] Prior slides from [id number] and S11- ? [id number] were reviewed and digitally scanned for future reference. ? ---Microscopic Description--- ? Whole slide scan: ? [id number] A2-1 ? ---Gross Description--- ? A - Labeled/Fixative : Stomach, formalin. ? Quantity/Size: 12, averaging 0.4 cm. ? Tissue Description: Soft, torres-pink tissue. ? Sections/Process ing: (T3) ??ejr ? ---Clinical Information--- ? Specimen Submitted: ? A - Stomach ? Clinical History: ? History of Menetrier's disease ? [facility] ? Provider: ?? NATO WATTERS ? Pt. Name: ?? FROY SPAIN ? Acc #: ?[id number] ?Pt. ? Col Date: ?? 08/31/2014 ? /Sex: ?1975,(39 years),Male ? Rec Date: ?? 08/31/2014 ? LOC: ?4T ? SURGICAL PATHOLOGY ? Clinical Diagnosis: ? Question resolution after treatment of recurrence of Menetrier's 09/02/2014 1:57 PM EDT [facility] GI Biopsy 08/31/2014 1:23 PM EDT 08/31/2014 1:23 PM EDT Nato Watters MD PATHOLOGY/CYTOLOGY O RDERABLES Performing Organization Address City/State/[facility] Co de Phone Number [facility] [place] [address] * Specimen to Pathology (surgical or derm) (08/31/2014 1:23 PM EDT) AP Specimen 08/31/2014 1:23 PM EDT 08/31/2014 1:23 PM EDT Narrative [facility] - 08/31/2014 1:23 PM EDT Specimen requisition ordered. ??Separate Pathology report to follow Nato Watters MD PATHOLOGY/CYTOLOGY Dhruv [facility] * UPPER GI ENDOSCOPY (08/31/2014 12:50 PM EDT) UPPER GI ENDOSCOPY [facility] Endoscopy Patient Name: Froy Spain ? Procedure Date: 08/31/2014 12:50 PM ? N: [id number] ? Date of : 1975 ? Age: 39 ? Order #: [id number] ? Procedure: ? Upper GI endoscopy Indications: ? 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 to therapy. Providers: ? Nato Watters MD, Karol Harrell, GILDA, ? Frannie Olmos, Planishing Press Operator Referring MD: ? Requesting Provider: Dr. Wilder [...] Procedure Code(s): ?? --- Professional --- ? 36314, Esophagogastroduo denoscopy, ? flexible, transoral; with biopsy, ? single or multiple CPT copyright 2014 [employer]. All rights reserved. The codes documented in this report are preliminary and upon doweler review may be revised to meet current compliance requirements. Attending Participation: ? I personally performed the entire procedure. ? Nato Watters MD 08/31/2014 1:29 PM This report has been signed electronically. Number of Addenda: 0 Note Initiated On: 08/31/2014 12:50 PM PROVATION 08/31/2014 12:5 0 PM EDT Unknown GENERAL SURGICAL ORD ERABLES PROVATION documented in this encounter Visit Diagnoses Diagnosis Menetrier disease Gastric mucosal hypertrophy without mention of hemorrhage documented in this encounter Administered Medications Inactive Administered [...] RN) documented in this encounter Care Teams Glass Etcher Helper Relationship Specialty Start Date End Date None None PCP - General 07/27/14 documented as of this encounter
--- OUTSIDE RECORDS SUMMARY | 2024-06-11 02:52 | XMS_ITS | Encounter Summary ---
[place] [address] Care Team Providers Care Technician Anatomic Pathology Name Role Phone Zak Padilla MD Primary Care Provider Unavailabl e Reason for Visit * Reason Onset Date Comments Other 02/14/2014 Encounter Details Date Type Department Care Team (Late st Contact Info) Description 02/14/2014 Telephone [place] [phone] Karrie Byrne Other Social History Tobacco Use Types Packs/Day Years [...] encounter Miscellaneous Notes * Telephone Encounter - Karrie Byrne - 02/14/2014 12:56 PM EDT Called patient to schedule follow up appointment in Gastroenterology due 08/2013. Patient is unable to schedule at this time. He has our telephone number ([phone]) and will call us when He can. documented in this encounter Plan of Treatment Not on file documented as of this encounter Visit Diagnoses Not on filedocumented in this encounter Care Teams Technician Anatomic Pathology Relationship Specialty Start Date End Date Zak Padilla MD PCP - General 03/05/13 07/26/14 documented as of this encounter
--- OUTSIDE RECORDS SUMMARY | 2024-06-11 02:52 | XMS_ITS | Encounter Summary ---
Author Organization [facility] [place] [address] Care Team Providers Care Strip Mill Operator Name Role Phone None Primary Care Provider Unavailabl e Encounter Details Date Type Department Care Team (Late st Contact Info) Description 08/31/2014 12:59 PM EDT Anesthesia Event [place] [address] Gui Bo MD Anesthesia Record Procedure Summary Procedure Name Responsible Anesthesiologist Anesthesia Start Time Anesthesia Stop Time EGD WITH BIOPSY (WRVU 2.39) (Trunk) Gui Bo MD 08/31/14 1259 08/31/14 1323 Events Date Time Event Comment 08/31/2014 1255 1259 Start 1301 AN Verify 1301 An Start Data 1309 An Induction 1323 Anesthesia Ready 1323 an stop data 1323 Stop Meds Name Total Propofol 200 mg Propofol INF 123.68 mg lactated ringers infusion 0 mL * Agents Name O2 Auxiliary Flowmeter 1 * Blood No blood administrations on file. Lines, Drains, and Airways Type Details Placement Removal (RETIRED) Peripheral IV Line - Single Lumen 08/31/14; 1259; median vein right (underside of arm); 08/31/14; 1324 08/31/14 1259 by Kalyn Mclean RN 08/31/14 1324 by Ross Frausto RN documented in this encounter Social History Tobacco Use Types Packs/Day Years [...] on file documented as of this encounter OR Notes * Anesthesia Postprocedure Evaluation - Gui Bo MD - 08/31/2014 2:01 PM EDT Patient: Froy Spain Procedure(s) Performed: Procedure(s): EGD WITH BIOPSY Actual Anesthetic: MAC Patient location: PACU Post-op pain: Adequate analgesia Post-op nausea: no nausea or vomiting Last Vitals: Filed Vitals: 08/31/14 1324 BP: 107/88 Pulse: 87 Resp: 16 Post-op cardiovascular and respiratory status: is stable Level of consciousness: awake, alert and oriented Complications: no apparent complications and tolerated the procedure well Fluid Status: normal * Anesthesia Preprocedure Evaluation - Gui Bo MD - 08/30/2014 9:18 PM EDT Pre-Anesthesia Evaluation for: Froy Spain a 39 y.o. male. History of inadequate sedation in past for endoscopy. S/p ablation for wpw; No symptoms now Procedure(s): EGD, UPPER GI ENDOSCOPY Patient Active Problem List Diagnosis ??? PVC's (premature ventricular contractions) <3% [place] on Holter ??? Atrial ectopic tachycardia Frequent nonsustained runs on holter <1% ??? Follicular cyst ??? Btvt-Dxksggghk-Smcem syndrome ??? Skin lesion of face ??? 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 ??? History of colonic polyps Two tubular adenomas in 2008 ??? Palpitations Past Medical History Diagnosis Date ??? Digestive problems ??? Heart disorder Past Surgical History Procedure Laterality Date ??? Cardiac surgery ??? Upper gi endoscopy, biopsy 05/02/2011 EGD WITH BIOPSY performed by Karel MADDOX at [facility] ??? Upper gi endoscopy, biopsy 09/11/2012 UPPER GASTROINTESTINAL ENDOSCOPY,WITH BIOPSY SINGLE OR MULTIPLE performed by Karel Maddox MD at [facility] ??? Colonoscopy, biopsy 09/11/2012 COLONOSCOPY FLEXIBLE, WITH BX performed by Karel Maddox MD at [facility] ??? Cardiac catherization EP study with left sided pathway ablation History Substance Use Topics ??? Smoking status: Former Smoker -- 1.00 packs/day for 23 years Quit date: 05/29/2010 ??? Smokeless tobacco: Never Used ??? Alcohol Use: 3.6 oz/week 6 Cans of beer per week History Drug Use No No Known Allergies Medications: MAR and/or home medications have been reviewed. Physical Exam: There were no vitals filed for this visit. There is no weight on file to calculate BMI. Airway Assessment: Mallampati: II TM distance: >3 FB Neck ROM: full Cardiovascular Assessment: Rhythm: regular Rate: normal Pulmonary Assessment: breath sounds clear to auscultation Dental Assessment: Misc Assessment: Anesthesia Plan: ASA 2 MAC, with a(n) intravenous induction Propofol sedation I discussed risks including , nausea and vomiting, sore throat with alternatives, if available. Pt consents Region - Other Informed Consent: Anesthetic plan and risks discussed with patient. Plan discussed with SPARKER AND PATCHER. Misc. Assessment: documented in this encounter Plan of Treatment [...] mL/hr New Bag 08/31/2014 12:59 PM EDT propofol (DIPRIVAN) 10 mg/mL bolus injection (Anesthesia) PRN, Starting on Fri08/31/14 at 1309, Until Fri08/31/14 at 1323, Anesthesia Intra-op Given 08/31/2014 1:14 PM EDT 50 mg Given 08/31/2014 1:09 PM EDT 150 mg propofol (DIPRIVAN) infusion CONTINUOUS PRN, Starting on Fri08/31/14 at 1309, Until Fri08/31/14 at 1323, Anesthesia Intra-op, Routine Rate/Dose Change 08/31/2014 1:14 PM EDT 175 mcg/kg/min 101.9 mL/hr New Bag 08/31/2014 1:09 PM EDT 150 mcg/kg/min 87.3 mL/h r documented in this encounter Care Teams Strip Mill Operator Relationship Specialty Start Date End Date None None PCP - General 07/27/14 documented as of this encounter
--- OUTSIDE RECORDS SUMMARY | 2024-06-11 02:53 | XMS_ITS | Encounter Summary ---
Author Organization [facility] Address [facility] [place] [address] Care Team Providers Care Patching Machine Operator Name Role Phone Kaley Mike MD Primary Care Provider [phone] Reason for Visit * Reason Comments Procedure cyst on right side o f nose Encounter Details Date Type Department Care Team (Latest Contact Info) Description 01/31/2011 1:00 PM EDT Procedure [place] [address] Jay Metzger MD [facility] [place] [place] [address] Cyst (Primary Dx) Discharge Disposition: Home Social History Tobacco Use Types Packs/Day Years Used Date Smoking Tobacco: Former Cigarettes 1 23 0 05/29/1987 - 05/29/2010 Smokeless Tobacco: Never Alcohol Use Standard Drinks/Week Comments Yes 0 (1 standard drink = 0.6 oz pur e alcohol) Sex and Gender Information Value Date Recorded Sex Assigned at Not on file Gender Identity Not on file Sexual Orientation Not on file documented as of this encounter Last Filed Vital Signs Vital Sign Reading Time Taken Comments Blood Pressure 142/84 01/31/2011 1:53 PM EDT Pulse - - Temperature - - Respiratory Rate - - Oxygen Saturation - - Inhaled Oxygen Concentration - - Weight - - Height - - Body Mass Index - - documented in this encounter Patient Instructions * Patient Instructions* Mikaela Savage RN - 01/31/2011 1:10 PM EDT Welcome to [facility], your secure online access to your electronic medical record at [facility]. Using [employer] you will be able to send messages to your providers, view your test results, renew prescriptions, schedule appointments, and much more. Follow these instructions to enter your personal CloudTags account for the first time: 1. Start your internet browser. Go to [email or web address] and click on the Cloud[employer] link. 2. Click SIGN UP NOW to go to the NEW MEMBER SIGN UP page. 3. Enter your CloudTags Access Code exactly as it appears below. (You will not need this access code after you have completed the sign-up process.) ?? Your CloudTags Access Code: [email or web address] ?? Expires: 02/15/11 03:43 PM ?? IMPORTANT: This Access Code will on the above mentioned date. If you do not sign up before this date, you will need to request a new Access Code number. 4. Enter your Date of (mm/dd/yyyy) and zip code click SUBMIT to go to the next page. 5. Create a CloudTags identification (ID). This will be your CloudTags login ID and cannot be changed, so think of one that is secure and easy to remember. 6. Create a password which you can change at any time. Your password must contain six (6) letters and two (2) numbers. 7. Enter your Password Reset Question and Answer. This will be used if you forget your password. 8. Enter your e-mail address. This is used to let you know when new information is available in [employer]. 9. Click SIGN UP to complete the process. You can now view your electronic medical record. If you have any questions about Cloud[employer] or your Access Code, please call for [place], for [place] or for [place]. If you need technical support, please e-mail [email or web address]. Remember, Cloud[employer] is NOT for urgent needs! Always dial 911 for medical emergencies. The lesion will be sent to pathology. Dr. Metzger will call you if there are any concerns. You do notneed a follow up appointment but please call us if you have any questions or concerns. documented in this encounter Progress Notes * Jay Metzger MD - 01/31/2011 2:43 PM EDT Procedure Note Plastic Surgery Procedure: excison of cyst Anatomic Location: nasal dorsum at radix Pre-op diagnosis: nasal subcutaneous mass Post-op diagnosis: same Consent: Written from patient after discussion of risks and benefits. Physicians: Jay Metzger M.D. Anesthesia: Local with Lidocaine 1% with epi Description: After anesthesia was provided, the site was prepped and draped in sterile fashion. Transverse incision made in RSTL with leipse of skin at 1 cm length. Cyst measured 1.3 cm. Dissection made around the cyst and it was removed in it's entirety. The wound was irrigated and closed with 4-0vicryl and then dermbond. Specimens: cyst Complications: none immediate EBL: minimal Disposition: Pt. tolerated the procedure well. After the procedure, the patient was d/c'd . * Mikaela Savage RN - 01/31/2011 1:43 PM EDT Plastic Surgery Minor Surgery Worksheet Skin Prep: Betadine with NaCl 1:1 Cautery Unit: MNS1 [id number] Grounding Pad Site: right trunk By Whom: sirisha Settings: Coag10 [id number] Adrenaline 1:1000 cc Marcaine 0.5% plain cc Marcaine 0.25% plain cc Marcaine 0.25% w/epi 1:200,000 cc Xylocaine 1% plain cc Xylocaine w/epi 1:200,000 cc Xylocaine w/epi 1:200,000 buffered w/ 8.4% NaBicarb 5___cc Script written for: none documented in this encounter Miscellaneous Notes * Miscellaneous - Elvis, Button Breaker - 02/16/2011 8:41 AM EDT documented in this encounter Plan of Treatment Not on file documented as of this encounter Procedures Procedure Name Priority Date/Time Associated Diagnosis Comments SURGICAL PATHOLOGY REPORT Routine 01/31/2011 3:03 PM EDT SPECIMEN TO PATHOLOGY Routine 01/31/2011 2:00 PM EDT Cyst documented in this encounter Results * Surgical Pathology Report (01/31/2011 3:03 PM EDT) Surgical Pathology Report [id number] ? Location: 4M The signing pathologist has (i) examined the relevant preparation(s) for the specimen(s) and (ii) rendered or confirmed the diagnosis(es). . ?Pathology Surgical Pathology Final Report Clinical Information Specimen Submitted: A - Bridge of nose, excision (1) Clinical History/Diagnosi s: Enlarging mass Gross Description Labeled/Fixative : ? Nasal mass, formalin. Qty/Size/Weight: ?0.9 x 0.9 x 0.8 cm. Tissue Description: ?? Thin-walled, ayala-white, cystic nodule containing ?grumous material. Sections/Process ing: ??(R1) ??aje/EJR Microscopic Description Slides reviewed, microscopic description not recorded. Diagnosis Skin, bridge of nose, excision: ??Follicular infundibular cyst. Dictated by: ?? Felecia García, DO ?Dermatopatholo gy Fellow As the attending physician, I attest that I examined the histologic slides, and confirm Dr. Felecia García's diagnosis. 02/01/11 SRL 02/01/11 Verified by: ? Ingrid HEATH, Herve Cabral ?Dermatopatholo gist ?(Electronic Signature) The attending pathologist whose signature appears on this report has reviewed all diagnostic slides and has edited the gross and/or microscopic portion of the report in rendering the final pathologic diagnosis. CERNER MILLENNIUM 01/31/2011 3:03 PM EDT Jay Metzger MD PATHOLOGY/CYTOLOGY O RDERARADHA Performing Organization Address [facility]/State/ZIP Co de Phone Number CERSIENNA DAVISENNIUM * Specimen to Pathology (surgical or derm) (01/31/2011 2:00 PM EDT) AP Specimen 01/31/2011 2:00 PM EDT 01/31/2011 2:02 PM EDT Narrative CERNER MILLENNIUM - 01/31/2011 2:02 PM EDT Specimen requisition ordered. ??Separate Pathology report to follow Jay Metzger MD PATHOLOGY/CYTOLOGY O RDERABLES Performing Organization Address [facility]/State/ZIP Co de Phone Number [employer] documented in this encounter Visit Diagnoses Diagnosis Cyst- Primary Reserved for inherently not codable concepts WITHOUT codable children documented in this encounter Care Teams Patching Machine Operator Relationship Specialty Start Date End Date Kaley Mike MD [address] [place] [address] PCP - General 08/31/10 03/04/13 documented as of this encounter
--- OUTSIDE RECORDS SUMMARY | 2024-06-11 02:53 | XMS_ITS | Encounter Summary ---
Author Organization [facility] [place] [address] Care Team Providers Care Retail Analyst Name Role Phone Kaley Mike MD Primary Care Provider [phone] Reason for Visit * Reason Comments Ptbmi-Ufotxmzfl-Efsxh Syndrome Encounter Details Date Type Department Care Team (Late st Contact Info) Description 02/23/2013 8:30 AM EDT Office Visit Cardiology at [address] [phone] Ming Akins MD WPW (Pzwhv-Efcnqkysm-Aqut e syndrome) (Primary Dx); PVC's (premature ventricular contractions); Atrial ectopic tachycardia Discharge Disposition: Home Social History Tobacco Use [...] Sign Reading Time Taken Comments Blood Pressure 126/84 02/23/2013 7:49 AM EDT Pulse 77 02/23/2013 7:49 AM EDT reg Temperature - - Respiratory Rate 16 02/23/2013 7:49 AM EDT Oxygen Saturation 97% 02/23/2013 7:49 AM EDT Inhaled Oxygen Concentration - - Weight 88.5 kg (195 lb) 02/23/2013 7:49 AM EDT Height 179.1 cm (5' 10.5) 02/23/2013 7:49 AM ED T Body Mass Index 27.58 02/23/2013 7:49 AM EDT documented in this encounter Progress Notes * Gee Dudely, DO - 02/23/2013 8:57 AM EDT Electrophysiology Progress Note Today's Date: 02/23/2013 Electrophysiology Attending: Dr. Akins Subjective: Froy Spain was seen in follow up today. He has done well after his ablation for left lateral accessory pathway. He has intermittent palpitations off and on since but not the same quality as before. He had a holter monitor done at [facility] and showed no VT, but did show Short nonsustained runs of atrial tachycardia , and premature ventricular contractions. he states he has lived many years with these irregular heartbeats and the only reason that he wanted to be evaluated was to make sure that there was no particular life threatening condition. He states he was urged to come in and be evaluated by his . He at no time has been syncopal or near syncopal with these episodes. He has learned to live with him in September in no way affect his activities of daily living. He is able to enjoy life as well as perform his occupation without being limited by his atrial and Ventricular dysrhythmias. He more or less wanted reassurance that this was not a significant issue. He has experienced no chest pain or shortness of breath. He is able to do physical labor without being symptom limited. He is due for an annual physical coming up with his primary care physician in the next few weeks. Patient Active Problem List Diagnosis Code ??? Palpitations 785.1 ??? 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 History of colonic polyps V12.72 ??? Skin lesion of face 709.9 ??? 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 Follicular cyst 620.0 ??? PVC's (premature ventricular contractions) 427.69 ??? Atrial ectopic tachycardia 427.89 Objective: Temp: -- Heart Rate: [77] Resp: [16] BP: (126)/(84) SpO2: [97 %] omeprazole (PRILOSEC) 20 mg capsule PHYSICAL EXAM General: Pt is alert and oriented x3, mm pink and moist, well nourished, Anicteric, Acyanotic and Afebrile HEENT: Normocephalic/atraumatic, PERRL, EOMI Neck: Supple with no carotid bruit or thyromegaly. JVP0cm above clavicle Respiratory: Good air entry bilaterally, No crackles, No wheezes Cardiac: PMI Nondisplaced, Physiologic S1, S2, No S3 or S4. There was no Murmur, no gallops/rubs, regular rhythm Abdominal: Soft and non-tender with no organomegaly. Normal bowel sounds Extremities: No atrophy, no clubbing/cyanosis, no edema, 2+ radial/pedal pulses bilaterally Device Site: No device Holter monitor from outpatient facility was reviewed and the results of been scanned into the chart ASSESSMENT/PLAN: 1. Nonsustained supraventricular atrial tachycardia 2. Frequent premature ventricular contractions ?? episodes of trigeminy seen on Holter monitor. These events correlated with the patient's symptoms of palpitation and were patient triggered events. 3. 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 We had a discussion about the different treatment options for his ventricular and atrial dysrhythmias and the patient stated that he would ratherjust watch and wait since there is no immediate health risk because of this condition. He is to call us and let us know if he has any further worsening of his symptoms or increase in the burden of his tachycardia or premature ventricular contractions. If so we have Arty laid the groundwork for institution of antiarrhythmic medications as well as checking an echocardiogram to make sure there is been no changes in the structural function of his heart. At this present time there is no indication or concern for any structural abnormalities. He felt very happy with this plan and we'll contact us should he need to. Gee Dudley DO Electrophysiology Fellow Cardiac Electrophysiology [place], [place] ) Pager ([phone]) This note was created using [employer] Software. While attempts are made to ensure accurate spelling and grammar some errors may persist. Subjective: Mr. pSain is a 37-year-old male status post successful radiofrequency ablation of a manifest left lateral pathway. He has been bothered by recurrent palpitations and recently wore a Holter monitor that demonstrated occasional VPCs (2.9%) and APCs (1.1%) with short runs of nonsustained atrial tachycardia. He is here today to discuss the implications of the results of the Holter and possible therapeutic options. The patient is otherwise healthy and really has no significant complaints. For full history and physical, past medical history, review of systems, and physical exam, please see the note by Gee Dudley MD from today. Assessment & Plan: I had a nice discussion with the patient and his going over the issues.At this time the patient has symptomatic ectopy. I have offered him therapy with beta blockers but the patient defers, given the ectopy does not appear to have any malignant potential. I did warn thepatient that if his ectopy increases he could eventually develop a tachymyopathy if left unchecked,but his recent 24-hour Holter is reassuring. At this time he has no signs of any decompensated heart failure so I do not think any further work up is necessary. I told him to contact us immediately if his symptoms get worse, in which case I would perform a Ziopatch to look at longer durations for his arrhythmia, and arrhythmia burden, and, if significant, would consider treatment and a repeat echocardiogram. [place] [address] - tel [phone] - fax [facility]/pbh Copy: Kaley Mike MD documented in this encounter Procedure Notes * Provider, Scanning - 02/24/2013 2:39 PM EDTAssociated Order(s): SCAN DOC: CURING OVEN ATTENDANT documented in this encounter Plan of Treatment Not on file documented as of this encounter Procedures Procedure Name Priority Date/Time Associated Diagnosis Comments CURING OVEN ATTENDANT SCAN 02/24/2013 2:39 PM EDT EKG 12-LEAD Routine 02/23/2013 7:46 AM EDT WPW (Phovh-Ehsnoticr-Zn ite syndrome) documented in this encounter Results * SCAN DOC: CURING OVEN ATTENDANT (02/24/2013 2:39 PM EDT) Anatomical Region Laterality Modality Other Narrative 02/24/2013 2:40 PM EDT Procedure Note Provider, Scanning - 02/24/2013 2:39 PM EDT Scanning Provider MEDIA MGR SCAN EXT O RDR/RSLT * EKG 12 Lead (02/23/2013 7:46 AM EDT) Ventricular rate 75 BPM MUSE SYSTEM Atrial Rate 75 BPM MUSE SYSTEM P-R Interval 110 ms MUSE SYSTEM QRS Duration 80 ms MUSE SYSTEM Q-T Interval 340 ms MUSE SYSTEM QTC Calculated (Bezet) 379 ms MUSE SYSTEM Calculated P [place] 53 degrees MUSE SYSTEM Calculated R [place] 13 degrees MUSE SYSTEM Calculated T [place] 49 degrees MUSE SYSTEM INTERPRETATION Sinus rhythm with short TX Otherwise normal ECG When compared with ECG of 24-MAY-2010 01:39, No significant change was found Confirmed by MD LYDIA, ELENA ([id number]) on 02/23/2013 10:50:34 AM MUSE SYSTEM 02/23/2013 7:46 AM EDT 02/23/2013 10:50 AM EDT Ming Akins MD ECG ORDERABLES MUSE SYSTEM documented in this encounter Visit Diagnoses Diagnosis 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
--- OUTSIDE RECORDS SUMMARY | 2024-06-11 02:53 | XMS_ITS | Encounter Summary ---
[place] [address] Care Team Providers Care Candle Pourer Name Role Phone aKley Mike MD Primary Care Provider [phone] Reason for Visit * Reason Comments Diarrhea Encounter Details Date Type Department Care Team (Latest Contact Info) Description 10/23/2010 10:30 AM EDT Clinical [place] [phone] Maribell Yao RN Gastropathy (Primary Dx) Discharge Disposition: Home Social History Tobacco Use Types Packs/Day Years Used Date Smoking Tobacco: Former Cigarettes Q uit: 05/29/2010 Alcohol Use Standard Drinks/Week Comments Not Asked 0 (1 standard drink = 0.6 oz pur e alcohol) Sex and Gender Information Value Date Recorded Sex Assigned at Not on file Gender Identity Not on file Sexual Orientation Not on file documented as of this encounter Last Filed Vital Signs Vital Sign Reading Time Taken Comments Blood Pressure 130/93 10/23/2010 11:39 AM EDT Pulse 81 10/23/2010 11:39 AM EDT Temperature - - Respiratory Rate - - Oxygen Saturation - - Inhaled Oxygen Concentration - - Weight - - Height - - Body Mass Index - - documented in this encounter Progress Notes * Maribell Yao RN - 10/23/2010 11:44 AM EDT Pt here for IM injection of sandostatin LAR 10 mg. Given IM into gluteal RUQ ( exp Aug 2012, Lot # [id number]) per order of Dr Swartz. documented in this encounter Plan of Treatment Not on file documented as of this encounter Visit Diagnoses Diagnosis Gastropathy- Primary Unspecified disorder of stomach and duodenum documented in this encounter Care Teams Candle Pourer Relationship Specialty Start Date End Date Kaley Mike MD [address] [place] [address] PCP - General 08/31/10 03/04/13 documented as of this encounter
--- OUTSIDE RECORDS SUMMARY | 2024-06-11 02:53 | XMS_ITS | Encounter Summary ---
[place] [address] Care Team Providers Care Porcelain Enamel Laborer Name Role Phone Kaley Mike MD Primary Care Provider [phone] Reason for Visit * Reason Comments GI Problem ? increasing medicat ion Encounter Details Date Type Department Care Team (Late st Contact Info) Description 11/20/2010 9:00 AM EDT [place] [id number] Tata Swartz MD Menetrier's disease (Primary Dx); Gastropathy Discharge Disposition: Home Social History Tobacco Use Types Packs/Day Years Used Date Smoking Tobacco: Former Cigarettes Q uit: 05/29/2010 Smokeless Tobacco: Never Alcohol Use Standard Drinks/Week Comments Not Asked 0 (1 standard drink = 0.6 oz pur e alcohol) Sex and Gender Information Value Date Recorded Sex Assigned at Not on file Gender Identity Not on file Sexual Orientation Not on file documented as of this encounter Last Filed Vital Signs Vital Sign Reading Time Taken Comments Blood Pressure 140/86 11/20/2010 9:18 AM EDT Pulse 75 11/20/2010 9:18 AM EDT Temperature - - Respiratory Rate - - Oxygen Saturation - - Inhaled Oxygen Concentration - - Weight 87.1 kg (192 lb) 11/20/2010 9:18 AM EDT Height 176 cm (5' 9.29) 11/20/2010 9:18 AM EDT Body Mass Index 28.12 11/20/2010 9:18 AM EDT documented in this encounter Progress Notes * Karel Haque MD - 11/21/2010 1:26 PM EDT The patient was seen and examined by Dr. Swartz. I have reviewed her history, physical, assessment and plan, and I agree with them as documented. * Feli Alves RN - 11/20/2010 11:00 AM EDT Sandostatin LAR Depot 10 mg given intra-gluteal LUQ with tolerable discomfort. Ice applied pre-inejction. Patient will wait to hear from Dr. Swartz regarding timing of next injection. * Tata Swartz MD - 11/20/2010 9:42 AM EDT Gastroenterology and Hepatology Follow up Problem List: # Menetrier's Disease: Protein losing gastropathy - [...] of involvement, thickeness of folds and mucus. 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 Spain has been doing well for the most part. His weight has increased to 192lbs (a little higher than his baseline weight). He has been receiving Octreotide IM shots and has been experience morepain than expected. He reports that the pain was worse when it was being administered near the hip,but after the location was changed to his buttock the pain is been bearable. He has noticed that for the first three weeks after the injection he feels fine, but that the medication effect seems to wear off by the 4rth week. He then beings to feel bloated, and his epigastric area feels hard. He hasearly satiety. +nausea with no vomiting. Denies abdominal pain. But these symptoms disappear once he received the injection. He has been on the Depot for about 4+months. Denies leg swelling. He is afraid that his symptoms may worsen as he is very active at work at this time and would not like to end in the hospital. ROS: No fever or chills. No chest pain or SOB No cough No dysuria or hematuria. No joint aches or swelling. No diarrhea, melena or BRBPR. Physical Exam: Weight 192<---186 <--175 (lb)<---166 (05/30) <----159 (on 05/24) Thin male. NAD. PERRL, EOMI, anicteric. No oral lesions. RRR no M LUNGS: CTA Abdomen has normoactive BS. Soft, ND. no HSM. No LE edema. Pertinent lab/imaging/endoscopy workup to date: No new labs. 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 He has been doing well with Octreotide. His hypoalbuminemia resolved and his weight has increased since treatment was initiated. He is having breakthrough symptoms at the end of 4 weeks. He has no alarm symptoms at this time to rosalinda to endoscopic re-ev aluation. However, we will plan an EGD if his symptoms do not improve with Octreotide dose adjustment. - Will administer his scheduled dose of Octreotide today. - Plan to increase the dose of Octreotide to 20mg. If he continue to have breakthrough symptoms will then increase the frequency., Surveillance Colonoscopy due 2013 for adenomatous polyps. - Menetrier's disease has been reported to have an increased risk of gastric cancer (2-15% - based on care reports), currently there are no guidelines as to endoscopic surveillance. Will plan repeat EGD in a few months to determine if Octreotide depot is helping. - Recheck albumin. His symptoms are not typical for biliary colic (as Octreotide can cause gallstone formation), but will check LFTs just to ensure. - Schedule follow up in 3 months or sooner if needed. Cam Swartz MD Fellow, [facility] [place] [facility] and Hepatology documented in this encounter Plan of Treatment Not on file documented as of this encounter Results * Basic Metabolic Panel (non-fasting) (03/25/2011 5:10 PM EST) Glucose 124 60 - 199 mg/dL CERNER MILLENNIUM Comment:Diabetes: >=200 mg/d L plus symptoms Blood Urea Nitrogen 18 10 - 20 mg/dL CERNER MILLENNIUM Creatinine 1.29 0.80 - 1.50 mg/dL CERNER MILLENNIUM Sodium 138 135 - 145 mmol/L CERNER MILLENNIUM Potassium 3.6 3.5 - 5.0 mmol/L CERNER MILLENNIUM Comment: Please note: ??Patients with WBC >100,000 may have falsely elevated Potassium levels. ??For accurate Potassium quantification in these patients send serum separator tube (gold top) for subsequent determinations. ??Contact the Clinical Chemistry Laboratory if there are any questions. Chloride 102 98 - 107 mmol/L CERNER MILLENNIUM Carbon Dioxide 29 22 - 31 mmol/L CERNER MILLENNIUM Anion Gap 7 5 - 15 mmol/L CERNER MILLENNIUM Calcium 9.1 8.5 - 10.5 mg/dL CERNER MILLENNIUM Est Glomerular Filtration Rate >60 >=60 CERNER MILLENNIUM Comment: The National Kidney Disease Education Program (NKDEP) has recommended all laboratories report estimated GFR (eGFR) along with plasma creatinine measurements to assist you with recognition of early kidney disease. Caveats: ??Plasma creatinine should be at steady-state (unchanged within the past week). For patients multiply eGFR by 1.2.MDRD equation has not been validated for pediatric patients and is only valid for patients with age >= 18 years. At present, NKDEP does NOT recommend using the MDRD equation for drug dosing purposes and pharmacists should continue to use their current dosing methods. In addition, numerical eGFR values greater than 60 ml/min/1.73 square meters should be treated as > 60, and not an exact number due to greater inaccuracies at these higher values. Per NKDEP, they classify normal renal function as any GFR >60ml/min/1.73 square meters; chronic kidney disease when GFR <60, and renal failure when GFR <15. ??This calculation may not be valid for patients with atypical muscle mass (very lean or obese), acute renal failure, and in patients with diabetic kidney disease. References: http://nkdep.nih.gov/resources/NKDEP_Suggestn4Labs_0606_508.pdf http://www.kidney.org/professionals/kls/pdf/faq_gfr.pdf Blood specimen (specimen) 03/25/2011 5:10 PM EST 03/25/2011 5:26 PM EST L Nir Haque MD CHEMISTRY ORDERABLES CERNER MILLENNIUM * CBC (with Diff) (03/25/2011 5:10 PM EST) White Blood Cell 8.3 4.0 - 10.0 x10(3)/mcL CERNER MILLENNIUM Red Blood Cell 4.85 4.63 - 6.08 x10(6)/mcL CERNER MILLENNIUM Hemoglobin 15.2 13.7 - 17.5 gm/dL CERNER MILLENNIUM Hematocrit 42.7 40.0 - 51.0 % CERNER MILLENNIUM Mean Cell Volume 88.0 79.0 - 92.0 fL CERNER MILLENNIUM Mean Cell Hemoglobin 31.3 25.6 - 32.2 pg CERNER MILLENNIUM Mean Cell Hemoglobin Concentration 35.6 32.0 - 36.5 gm/dL CERNER MILLENNIUM Platelet 210 145 - 370 x10(3)/mcL CERNER MILLENNIUM RDW Standard Deviation 40.1 35.0 - 46.0 fL CERNER MILLENNIUM RDW coefficient of variation 12.5 10.9 - 14.4 % CERNER MILLENNIUM Mean Platelet Volume 9.6 9.0 - 12.0 fL CERNER MILLENNIUM Blood specimen (specimen) 03/25/2011 5:10 PM EST 03/25/2011 5:26 PM EST L Nir Haque MD HEMATOLOGY ORDERABLE S Performing Organization Address [facility] Co de Phone Number J[facility] FLORESIUM * Hepatic function panel (03/25/2011 5:10 PM EST) Protein, Total 7.0 6.4 - 8.3 gm/dL CERNER MILLENNIUM Albumin 4.6 3.2 - 5.2 gm/dL CERNER MILLENNIUM Aspartate Aminotransferase 30 0 - 39 unit/L CERNER MILLENNIUM Alanine Aminotransferase 39 0 - 55 unit/L CERNER MILLENNIUM Alkaline Phosphatase 68 40 - 120 unit/L CERNER MILLENNIUM Bilirubin, Total 0.5 0.2 - 1.3 mg/dL CERNER MILLENNIUM Bilirubin, Direct 0.1 0.0 - 0.3 mg/dL CERNER MILLENNIUM Blood specimen (specimen) 03/25/2011 5:10 PM EST 03/25/2011 5:26 PM EST L Nir Haque MD CHEMISTRY ORDERABLES Performing Organization Address [facility] Co de Phone Number [facility] MOJICA documented in this encounter Visit Diagnoses Diagnosis Menetrier's disease- Primary Gastric mucosal hypertrophy without mention of hemorrhage Gastropathy Unspecified disorder of stomach and duodenum documented in this encounter Care Teams Porcelain Enamel Laborer Relationship Specialty Start Date End Date Kaley Mike MD [address] [place] [address] PCP - General 08/31/10 03/04/13 documented as of this encounter
--- OUTSIDE RECORDS SUMMARY | 2024-06-11 02:53 | XMS_ITS | Encounter Summary ---
Author Organization [facility] [place] [address] Care Team Providers Care Project Inspector Name Role Phone Kaley Mike MD Primary Care Provider [phone] Encounter Details Date Type Department Care Team (Late st Contact Info) Description 12/07/2010 [place] [address] Jacqueline White RN Social History Tobacco Use Types Packs/Day [...] on filedocumented in this encounter Care Teams Project Inspector Relationship Specialty Start Date End Date Kaley Mike MD [address] [place] [address] PCP - General 08/31/10 03/04/13 documented as of this encounter
--- OUTSIDE RECORDS SUMMARY | 2024-06-11 02:53 | XMS_ITS | Encounter Summary ---
Author Organization [facility] [place] [address] Care Team Providers Care Timber Rider Name Role Phone Moisés Story APRN Primary Care Provider [phone] Encounter Details Date Type Department Care Team (Late st Contact Info) Description 08/27/2010 Orders [place] [phone] Maribell Yao, RN Social History Tobacco Use Types Packs/Day [...] on filedocumented in this encounter Care Teams Timber Rider Relationship Specialty Start Date End Date Moisés Story APRN [address] [place] [address] PCP - General 05/09/10 08/30/10 documented as of this encounter
--- OUTSIDE RECORDS SUMMARY | 2024-06-11 02:53 | XMS_ITS | Encounter Summary ---
Author Organization [facility] Address [facility] [place] [address] Care Team Providers Care Revenue Analyst Name Role Phone Kaley Mike MD Primary Care Provider [phone] Reason for Visit * Reason Comments Annual Exam Encounter Details Date Type Department Care Team (Late st Contact Info) Description 09/26/2011 7:50 AM EDT Office [place] [id number] Saturnino Delgado MD [facility] [place] [address] Annual physical exam (Primary Dx) Discharge Disposition: Home Social History [...] Sign Reading Time Taken Comments Blood Pressure 130/73 09/26/2011 8:08 AM EDT Pulse 75 09/26/2011 8:08 AM EDT Temperature 36.5 ??C (97.7 ??F) 09/26/2011 8:08 AM ED T Respiratory Rate 18 09/26/2011 8:08 AM EDT Oxygen Saturation - - Inhaled Oxygen Concentration - - Weight 90.3 kg (199 lb) 09/26/2011 8:08 AM EDT Height 177.8 cm (5' 10) 09/26/2011 8:08 AM EDT Body Mass Index 28.55 09/26/2011 8:08 AM EDT documented in this encounter Progress Notes * Karely Farfan MD - 09/26/2011 9:01 AM EDT The case was discussed at the time of the visit or immediately after the visit. The assessment and plan were formulated in discussion with me and I agree with them as documented. I have reviewed the history, physical exam, assessment and plan with the resident. Major issues discussed today: Here for annual exam; h/o Menterier's disease, doing well Overweight, h/o low HDL Plan: Encourage regular aerobic exercise * Saturnino Delgado - 09/26/2011 8:37 AM EDT Subjective: Patient ID: Froy Clark is a 36 y.o. male. HPI 36 yo M presenting for an annual physical physical exam. Notes that his penile rash, pruritis have resolved. Triamcinolone has not helped and he stopped using it. Prior STD serology was negative. He feels well overall. In regards to his dx of Menetrier's syndrome, he is off octreotide as his interval EGD showed improvement in mucosal lesions and nodularity. Histology showed complete normalization of gastric muscosa. Only medication he is taking is omeprazole 40 mg once daily; needs a refill. In regards to his hx of WPW, he is otherwise asymptomatic. He denies any CP, SOB, dizziness, lightheadedness or palpitations at rest or on exertion. He is fully functional at work (contruction). Review of Systems Constitutional: Negative. HENT: Negative. Eyes: Negative. Respiratory: Negative. Cardiovascular: Negative. Gastrointestinal: Negative. Genitourinary: Negative. Musculoskeletal: Negative. Skin: Negative. Neurological: Negative. Hematological: Negative. Psychiatric/Behavioral: Negative. Current outpatient prescriptions ordered prior to encounter Medication Sig Dispense Refill ??? DISCONTD: triamcinolone (KENALOG) 0.1 % ointment Apply topically 2 times daily. Apply to affected area 30 g 0 ??? octreotide (SANDOSTATIN LAR) 10 mg injection Inject 10 mg into the muscle every 28 days for 1 dose. 1 each 7 PAST MEDICAL/SURGICAL HISTORY: Menetiers Disease Ctgl-Qqdaofppb-Krqis Syndrome - s/p ablation PREVENTIVE CARE: CRC screening - NA Prostate Ca screening - NA Lipids - Results for FROY CLARK ( ) as of 09/26/2011 08:39 Ref. Range 05/09/2010 05:20 Chol, Total Latest Range: <=199 mg/dL 139 HDL Latest Range: >=40 mg/dL 30 (L) Chol/HDL Ratio No range found 4.6 Triglycerides Latest Range: <=149 mg/dL 140 Fasting? No range found Not Indicated LDL Chol Direct Latest Range: <=99 mg/dL 87 DM screening - (Hgb, A1C or FBS) - Results for FROY CLARK ( ) as of 09/26/2011 08:39 Ref. Range 05/08/2010 18:25 05/09/2010 05:20 05/19/2010 12:44 05/19/2010 17:50 05/20/2010 06:42 05/21/2010 06:55 05/22/2010 07:51 05/22/2010 07:51 05/23/2010 08:20 05/24/2010 02:10 05/24/2010 09:55 05/24/2010 18:15 05/25/2010 07:25 06/20/2010 14:03 07/30/2010 15:23 03/25/2011 17:10 Glucose Lvl Latest Range: 60-199 mg/dL 93 87 87 90 101 78 124 Seat belts - usually SOCIAL HISTORY: Tob: trying to quit, 1 ppd x 23 yrs Etoh: nothing since march Drugs: denies Work: self-emploed carpentry Education: HS graduate Living Situation: 4 kids, , house with stairs Hobbies: fishing, hunting, camping FAMILY HISTORY: F - healthy M- DM2 Siblings - healthy BP 130/73 Pulse 75 Temp(Src) 36.5 ??C (97.7 ??F) (Oral) Resp 18 Ht 177.8 cm (5' 10) Wt 90.266 kg (199 lb) BMI 28.55 kg/m2 Objective: Physical Exam Constitutional: He is oriented to person, place, and time. He appears well- developed and well-nourished. No distress. HENT: Head: Normocephalic and atraumatic. Mouth/Throat: No oropharyngeal exudate. Eyes: EOM are normal. Pupils are equal, round, and reactive to light. No scleral icterus. Neck: Normal range of motion. Neck supple. No JVD present. No thyromegaly present. Cardiovascular: Normal rate, regular rhythm, normal heart sounds and intact distal pulses. Exam reveals no gallop and no friction rub. No murmur heard. Pulmonary/Chest: Effort normal and breath sounds normal. No respiratory distress. He has no wheezes. He has no rales. Abdominal: Soft. Bowel sounds are normal. He exhibits no distension. No tenderness. He has no rebound and no guarding. Musculoskeletal: Normal range of motion. He exhibits no edema and no tenderness. Lymphadenopathy: He has no cervical adenopathy. Neurological: He is alert and oriented to person, place, and time. He has normal reflexes. No cranial nerve deficit. Skin: Skin is warm and dry. No rash noted. He is not diaphoretic. No erythema. Psychiatric: He has a normal mood and affect. His behavior is normal. Judgment and thought content normal. Assessment and Plan: 36 yo M w/ WPW and Menetrier's syndrome here for annual physical exam. He is doing quite well and gaining plenty of weight. We discussed age appropriate screening and the need for caloric control andincreasing his exercise level. His HDL was only 30. Exercise should help this. He should be followed once a year or as otherwise indicated. Another lipid panel in one year should also be checked. 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 WPW syndrome: - asymptomatic - s/p ablation; no issues Menetrier Syndrome: - asymptomatic; gaining weight, great appetite - continue on omeprazole - GI will continue to follow along HCM: - smoking cessation encouraged - weight loss encouraged - increasing aerobic exercise encouraged - UTD on Tdap and influenza RTC: one year (or PRN) documented in this encounter Plan of Treatment Not on file documented as of this encounter Visit Diagnoses Diagnosis Annual physical exam- Primary Routine general medical examination at a health care facility documented in this encounter Care Teams Revenue Analyst Relationship Specialty Start Date End Date Kaley Mike MD [address] [place] [address] PCP - General 08/31/10 03/04/13 documented as of this encounter
--- OUTSIDE RECORDS SUMMARY | 2024-06-11 02:53 | XMS_ITS | Encounter Summary ---
Author Organization [facility] Address [facility] [place] [address] Care Team Providers Care Program Associate Name Role Phone Kaley Mike MD Primary Care Provider [phone] Reason for Visit * Reason Comments Skin Lesion Encounter Details Date Type Department Care Team (Late st Contact Info) Description 06/18/2011 2:00 PM EST Office [place] [phone] Saturnino Delgado MD [facility] GENER[place] [address] Dermatitis (Primary Dx) Discharge Disposition: Home Social History [...] Sign Reading Time Taken Comments Blood Pressure 130/92 06/18/2011 2:11 PM EST Pulse 90 06/18/2011 2:11 PM EST Temperature - - Respiratory Rate 18 06/18/2011 2:11 PM EST Oxygen Saturation - - Inhaled Oxygen Concentration - - Weight 88.7 kg (195 lb 8 oz) 06/18/2011 2:11 PM EST Height 177.8 cm (5' 10) 06/18/2011 2:11 PM EST Body Mass Index 28.05 06/18/2011 2:11 PM EST documented in this encounter Patient Instructions * Patient Instructions* Saturnino Delgado - 06/18/2011 2:11 PM EST - follow up in one month with Dr. Delgado - take steroid cream as directed Welcome to [employer], your secure online access to your electronic medical record at [facility]. Using [employer] you will be able to send messages to your providers, view your test results, renew prescriptions, schedule appointments, and much more. Follow these instructions to enter your personal [employer] account for the first time: 1. Start your internet browser. Go to [email or web address] and click on the [employer] link. 2. Click SIGN UP NOW to go to the NEW MEMBER SIGN UP page. 3. Enter your [employer] Access Code exactly as it appears below. (You will not need this access code after you have completed the sign-up process.) ?? Your [employer] Access Code: [email or web address] ?? Expires: 08/02/11 02:11 PM ?? IMPORTANT: This Access Code will on the above mentioned date. If you do not sign up before this date, you will need to request a new Access Code number. 4. Enter your Date of (mm/dd/yyyy) and zip code click SUBMIT to go to the next page. 5. Create a [employer] [facility] identification (ID). This will be your [employer] login ID and cannot be changed, so [...] know when new information is available in [employer]. 9. Click SIGN UP to complete the process. You can now view your electronic medical record. If you have any questions about [employer] or your Access Code, please call for [place], for [place] or for [place]. If you need technical support, please e-mail [email or web address]. Remember, my[employer]-H is NOT for urgent needs! Always dial 911 for medical emergencies. documented in this encounter Progress Notes * Karely Farfan MD - 06/18/2011 3:03 PM EST The case was discussed at the time of the visit or immediately after the visit. The assessment and plan were formulated in discussion with me and I agree with them as documented. I have reviewed the history, physical exam, assessment and plan with the resident. Major issues discussed today: Recurrent discomfort in localized area of proximal head of penis near the shaft; no rash or visiblelesions. Negative previous w/u for STDs. Also complains of burning pain at upper gluteal cleft. Plan: Trial of topical steroid with close f/u to consider further work up * Saturnino Delgado - 06/18/2011 2:33 PM EST Subjective: Patient ID: Froy Spain is a 36 y.o. male. HPI 36 yo M w/ PMH as detailed below presents with continued complaints of a persistent pain at the glans of the penis. No discharge. Persistent, notes irritating sensation, almost itchy. No burning. Prior w/u has been negative. Also describes a hot, burning pain at the top of the lower back crease (gluteal cleft). Gets better with relaxation, worse when he trys to lay down. Had octrotide injection in the buttock muscles, finished finished this last month. Review of Systems As noted within the HPI, otherwise negative Current outpatient prescriptions ordered prior to encounter Medication Sig Dispense Refill ??? octreotide (SANDOSTATIN LAR) 10 mg injection Inject 10 mg into the muscle every 28 days for 1 dose. 1 each 7 ??? omeprazole (PRILOSEC) 20 mg capsule Take 40 mg by mouth daily. Past Medical History Diagnosis Date ??? Digestive problems ??? Heart disorder Filed Vitals: 06/18/11 1411 BP: 130/92 Pulse: 90 Resp: 18 Objective: Physical Exam Constitutional: He appears well-developed and well-nourished. No distress. Genitourinary: No visible lesion at the glans of the penis, no discharge No visible lesion, or tenderness at the gluteal cleft Skin: He is not diaphoretic. Assessment and Plan: No skin changes to suggest an overt rash. Areas in question fall into a dermatomal pattern however,itching may be secondary to a dermatitis component as well. Will empirically tx w/ topical steriod and re-evaluate in one month. I am hesitant to start neuromodulating medications for neuropathic pain syndromes as these can have an adverse effect on his GI and cardiovascular syndromes. Plan: - Triamcinolone cream as prescribed - F/u in ONE month documented in this encounter Plan of Treatment Not on file documented as of this encounter Visit Diagnoses Diagnosis Dermatitis- Primary Contact dermatitis and other eczema, due to unspecified cause documented in this encounter Care Teams Program Associate Relationship Specialty Start Date End Date Kaley Mike MD [address] [place] [address] PCP - General 08/31/10 03/04/13 documented as of this encounter
--- OUTSIDE RECORDS SUMMARY | 2024-06-11 02:53 | XMS_ITS | Encounter Summary ---
[place] [address] Care Team Providers Care Metal Box Maker Name Role Phone Kaley Mike MD Primary Care Provider [phone] Reason for Visit * Reason Onset Date Comments Medication Refill 12/17/2010 Encounter Details Date Type Department Care Team (Late st Contact Info) Description 12/17/2010 Ref[place] [phone] Tata Swartz MD Gastropathy (Primary Dx) Social History Tobacco Use Types Packs/Day Years [...] encounter Miscellaneous Notes * Telephone Encounter - Maribell Yao RN - 12/17/2010 4:48 PM EDT Change in dose documented in this encounter Plan of Treatment Not on file documented as of this encounter Visit Diagnoses Diagnosis Gastropathy- Primary Unspecified disorder of stomach and duodenum documented in this encounter Care Teams Metal Box Maker Relationship Specialty Start Date End Date Kaley Mike MD [address] [place] [address] PCP - General 08/31/10 03/04/13 documented as of this encounter
--- OUTSIDE RECORDS SUMMARY | 2024-06-11 02:53 | XMS_ITS | Encounter Summary ---
Author Organization [facility] [place] [address] Care Team Providers Care Motor And Generator Brush Cutter Name Role Phone Kaley Mike MD Primary Care Provider [phone] Encounter Details Date Type Department Care Team (Late st Contact Info) Description 09/03/2012 Abstract [place] [phone] Adrienne Contreras I, [facility] Social History Tobacco Use Types Packs/Day Years [...] on filedocumented in this encounter Care Teams Motor And Generator Brush Cutter Relationship Specialty Start Date End Date Kaley Mike MD [address] [place] [address] PCP - General 08/31/10 03/04/13 documented as of this encounter
--- OUTSIDE RECORDS SUMMARY | 2024-06-11 02:53 | XMS_ITS | Encounter Summary ---
Author Organization [facility] Address [facility] [place] [address] Care Team Providers Care Product Support Representative Name Role Phone None Primary Care Provider Unavailabl e Encounter Details Date Type Department Care Team (Late st Contact Info) Description 08/16/2010 [place] [address] Karel Haque MD GASTROENTEROLOGY Social History Tobacco Use Types Packs/Day Years Used Date Smoking Tobacco: Never Assessed Sex and Gender Information Value Date Recorded Sex Assigned at Not on file Gender Identity Not on file Sexual Orientation Not on file documented as of this encounter Plan of Treatment Not on file documented as of this encounter Procedures Procedure Name Priority Date/Time Associated Diagnosis Comments SURGICAL PATHOLOGY REPORT Routine 08/16/2010 2:24 PM EDT documented in this encounter Results * Surgical Pathology Report (08/16/2010 2:24 PM EDT) Surgical Pathology Report [id number] ? Location: 4T The signing pathologist has (i) examined the relevant preparation(s) for the specimen(s) and (ii) rendered or confirmed the diagnosis(es). . 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 Gastric polyp, formalin. Qty/Size/Weight: ?Single, 1.0 x 0.8 x 0.6 cm. Tissue Description: ?? [place] polyp. Sections/Processi ng: ??Inked black at the base and trisected. ??(T1) ??aje/SNS Microscopic Description Slides reviewed, microscopic description not recorded. Diagnosis A - Snare (hot snare) gastric body, excision: ?Gastric mucosa with marked foveolar hyperplasia (SEE NOTE). ?There is no evidence of dysplasia or malignancy. 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 Multiple levels were examined. CR-0 08/22/10 08/22/10 Verified by: ? Coco HEATH, Cecil ?Pathologist ?(Electronic Signature) The attending pathologist whose signature appears on this report has reviewed all diagnostic slides and has edited the gross and/or microscopic portion of the report in rendering the final pathologic diagnosis. [facility] MOJICA 08/16/2010 2:24 PM EDT L Nir Haque MD PATHOLOGY/CYTOLOGY O RDERARADHA [facility]ICA documented in this encounter Visit Diagnoses Not on filedocumented in this encounter Care Teams Product Support Representative Relationship Specialty Start Date End Date None None PCP - General 07/27/14 documented as of this encounter
--- OUTSIDE RECORDS SUMMARY | 2024-06-11 02:53 | XMS_ITS | Encounter Summary ---
Author Organization [facility] [place] [address] Care Team Providers Care Line Technician Name Role Phone Kaley Mike MD Primary Care Provider [phone] Reason for Referral * Consultation (Routine) - Closed Specialty Diagnoses / Procedures Referred By Contac t Referred To Contact Urology Diagnoses Dysuria Saturnino Delgado MD [facility] GENER[facility] [place] [address] [facility] [place] [address] Referral ID Status Reason Start Date Expiration Date V isits Requested Visits Authorized [id number] Closed Consult, Test & Treat 04/09/2011 10/06/2011 1 1 Encounter Details Date Type Department Care Team (Late st Contact Info) Description 04/09/2011 Orders [place] [phone] Saturnino Delgado MD [facility] [place] [address] Dysuria Social History Tobacco Use Types Packs/Day Years [...] as of this encounter Plan of Treatment Scheduled Referrals Name Type Priority Associated Diagnoses Orde r Schedule REFERRAL TO UROLOGY Outpatient Referral Routine Dysuria Ordered: 04/09/2011 documented as of this encounter Visit Diagnoses Diagnosis Dysuria documented in this encounter Care Teams Line Technician Relationship Specialty Start Date End Date Kalye Mike MD [address] [place] [address] PCP - General 08/31/10 03/04/13 documented as of this encounter
--- OUTSIDE RECORDS SUMMARY | 2024-06-11 02:53 | XMS_ITS | Encounter Summary ---
Author Organization [facility] [place] [address] Care Team Providers Care Hollow Handle Bench Worker Name Role Phone Kaley Mike MD Primary Care Provider [phone] Encounter Details Date Type Department Care Team (Late st Contact Info) Description 09/21/2010 Abstract [place] [phone] Maribell Yao, RN Social History Tobacco Use [...] on filedocumented in this encounter Care Teams Hollow Handle Bench Worker Relationship Specialty Start Date End Date Kaley Mike MD [address] [place] [address] PCP - General 08/31/10 03/04/13 documented as of this encounter
--- OUTSIDE RECORDS SUMMARY | 2024-06-11 02:53 | XMS_ITS | Encounter Summary ---
Author Organization [facility] Address [facility] [place] [address] Care Team Providers Care Shoe Lining Fitter Name Role Phone Kaley Mike MD Primary Care Provider [phone] Encounter Details Date Type Department Care Team (Late st Contact Info) Description 05/02/2011 1:00 PM EST - 05/02/2011 2:00 PM EST [place] [phone] Karel Maddox MD [facility] [place] [address] EGD WITH BIOPSY (WRVU 2.39) Social History [...] Sign Reading Time Taken Comments Blood Pressure 115/57 05/02/2011 1:57 PM EST Pulse 86 05/02/2011 1:57 PM EST Temperature 36.8 ??C (98.2 ??F) 05/02/2011 12:[address] Respiratory Rate 16 05/02/2011 1:57 PM EST Oxygen Saturation 94% 05/02/2011 1:57 PM EST Inhaled Oxygen Concentration - - Weight 84.8 kg (187 lb) 05/02/2011 12:15 PM EST Height 177.8 cm (5' 10) 05/02/2011 12:15 PM EST Body Mass Index 26.83 05/02/2011 12:15 PM EST documented in this encounter Discharge Instructions * Patient Instructions* Karel Maddox MD - 05/02/2011 1:27 PM EST Please see Recommendations in the Provation procedure report which is documented in the procedural note in E-DH. * Attachments The following attachments cannot be sent through Care Everywhere. * UPPER GI ENDOSCOPY: WHAT TO EXPECT AT HOME (UKRAINIAN) documented in this encounter Medications at Time of Discharge Medication Sig Dispensed Refills Start Date End Date octreotide (SANDOSTATIN LAR) 10 mg injectionIndications:Mene trier disease Inject 10 mg into the muscle every 28 days for 1 dose. 1 each 7 03/28/2011 09/03/2012 omeprazole (PRILOSEC) 20 mg capsule Take 40 mg by mouth daily. 09/26/2011 documented as of this encounter H&P Notes * Karel Maddox MD - 05/02/2011 1:24 PM EST 36 Yo with menetrier's disease followed by Dr. Swartz. Here for EGD prior to stopping octreotide. Has been feeling well with only intermittent queeziness, no vomiting. No edema. Wt stable. Patient Active Problem List Diagnoses Code ??? Palpitations 785.1 ??? 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 History of colonic polyps V12.72B ??? Skin lesion of face 709.9BG No current facility-administered medications on file prior to encounter. Current outpatient prescriptions ordered prior to encounter Medication Sig Dispense Refill ??? omeprazole (PRILOSEC) 20 mg capsule Take 40 mg by mouth daily. ??? octreotide (SANDOSTATIN LAR) 10 mg injection Inject 10 mg into the muscle every 28 days for 1 dose. 1 each 7 No Known Allergies PHYSICAL EXAMINATION: Patient Vitals in the past 24 hrs: BP Temp Temp src Pulse Resp SpO2 Height Weight 05/02/11 1215 116/81 mmHg 36.8 ??C (98.2 ??F) Oral 62 17 97 % 177.8 cm (5' 10) 84.823 kg (187 lb) GEN: Healthy-appearing in no acute distress. HEENT: OP clear without ulceration or lesions. LUNGS: Clear to auscultation bilaterally. COR: Regular, normal S1 and S2 without murmurs ABD: Normal active BS. Soft, non-distended. No tenderness to deep palpation in all 4 quadrants. A/P Proceed with EGD. Risks explained and consent signed. documented in this encounter Miscellaneous Notes * Miscellaneous - Provider, Scanning - 05/02/2011 9:20 PM EST * Miscellaneous - Provider, Scanning - 05/02/2011 2:36 PM EST * OR Attestation - Karel Maddox MD - 05/02/2011 1:26 PM EST Attestation: Case Date: 05/02/2011 I performed this procedure without the involvement of a resident. Karel MADDOX MD 05/02/2011 * Op Note - Karel Maddox MD - 05/02/2011 1:26 PM EST [facility] Operative Note Patient Name: Froy Spain : [id number] MR#: [id number] Case Date: 05/02/2011 Surgeon: Surgeon(s) and Role: * Karel MADDOX MD - Primary Please see the Provation procedure report in the Procedures tab in eDH. documented in this encounter Plan of Treatment Not on file documented as of this encounter Procedures Procedure Name Priority Date/Time Associated Diagnosis Comments SURGICAL PATHOLOGY REPORT Routine 05/02/2011 3:55 PM EST SPECIMEN TO PATHOLOGY Routine 05/02/2011 1:51 PM EST EGD WITH BIOPSY (WRVU 2.39) 05/02/2011 1:20 PM EST ASSESS FOR HEALING UPPER GI ENDOSCOPY Routine 05/02/2011 12 :20 PM EST documented in this encounter Results * Surgical Pathology Report (05/02/2011 3:55 PM EST) Surgical Pathology Report [id number] ? Location: 4T The signing pathologist has (i) examined the relevant preparation(s) for the specimen(s) and (ii) rendered or confirmed the diagnosis(es). . ?Pathology Surgical Pathology Final Report Clinical Information Specimen Submitted: A - Mucosal biopsies-stomach Clinical History/Diagnosis : 36 YO with H/O Menetrier's. Gross Description Labeled/Fixative: ? Mucosal biopsies stomach, formalin. Qty/Size/Weight: ?Five, ranging from 0.3 x 0.2 x 0.1 to ?0.5 x 0.2 x 0.1 cm. Tissue Description: ?? [place]-pink soft tissues. Sections/Processi ng: ??(T1) ??vms/PPS Microscopic Description Slides reviewed, microscopic description not recorded. Diagnosis Stomach, biopsy: ?Complete normalization of body/fundic-type mucosa in comparison to the previous biopsy, [id number]. CR-0 05/06/11 VMS 05/06/11 Verified by: ? Asif Shukla MD ?Pathologist ?(Electronic Signature) The attending pathologist whose signature appears on this report has reviewed all diagnostic slides and has edited the gross and/or microscopic portion of the report in rendering the final pathologic diagnosis. [facility] 05/02/2011 3:55 PM EST L Nir Maddox MD PATHOLOGY/CYTOLOGY O LAILA Performing Organization Address [facility] Co de Phone Number J[facility] MOJICA * Specimen to Pathology (surgical or derm) (05/02/2011 1:51 PM EST) AP Specimen 05/02/2011 1:51 PM EST 05/02/2011 1:51 PM EST Narrative JH DAVISENNIUM - 05/02/2011 1:51 PM EST Specimen requisition ordered. ??Separate Pathology report to follow L Nir Maddox MD PATHOLOGY/CYTOLOGY O LAILA Performing Organization Address [facility] Co de Phone Number [facility] * UPPER GI ENDOSCOPY (05/02/2011 12:20 PM EST) UPPER GI ENDOSCOPY [facility] Endoscopy Patient Name: Froy Spain ? Procedure Date: 05/02/2011 12:20:50 PM ? N: [id number] ? Date of : 1975 ? Age: 36 ? Procedure: ? Upper GI endoscopy Ind[facility] Providers: ? L Nir Maddox MD, Ross Frausto, ? RN, Hansa Fan, Retort Furnace Operator Referring MD: ?Kaley Mike MD, Tata Swartz MD Medicines: ? Midazolam 5 mg IV, Fentanyl 250 ? micrograms IV Complications: ? No immediate complications Procedure: ? Pre-Anesthesia Assessment: ? - Prior [...] procedure were verified by ? the physician in the pre-procedure ? area in the endoscopy suite. Mental ? Status Examination: alert and ? oriented. Airway Examination: normal ? oropharyngeal airway and neck ? mobility. Respiratory Examination: ? clear to auscultation. CV ? Examination: normal. ASA Grade ? Assessment: II - A patient with mild ? systemic disease. After reviewing the ? risks and benefits, the patient was ? deemed in satisfactory condition to ? undergo the procedure. The anesthesia ? plan was to use moderate sedation / ? [...] ? difficulty. ? Findings: ? The examined esophagus was normal. Z-line seen at 42 ? cm.Stomach with interval improvement of nodularity ? and without any more congestion of folds (see ? pictures). Biopsies taken.The examined duodenum was ? normal. ? Impression: ?- Interval improvement of nodularity ? and congestion. ? - Normal esophagus. ? - Normal examined duodenum. Recommendation: ?- Await pathology results. ? - Okay to stop octreotide as directed ? by Dr. Swartz. ? _ L Nir Maddox MD Signed Date: 05/02/2011 01:48:03 PM Number of Addenda: 0 Note initiated on 05/02/2011 12:20:50 PM PROVATION 05/02/2011 12:2 0 PM EST Unknown GENERAL SURGICAL ORD ERABLES PROVATION documented in this encounter Visit Diagnoses Not on filedocumented in this encounter Administered Medications Inactive Administered Medications - up to 3 most recent administrations Medication Order MAR Action Action Date Dose Rate Site fentaNYL 50mcg/mL injection ONCE PRN, Starting on Brenda 05/02/11 at 1322, Until Brenda 05/02/11 at 1723, Pain, Intra-Operative (Intra-Procedure), Routine Given 05/02/2011 1:35 PM EST 50 mcg Given 05/02/2011 1:29 PM EST 50 mcg Given 05/02/2011 1:26 PM EST 50 mcg midazolam (VERSED) injection ONCE PRN, Starting on Brenda 05/02/11 at 1322, Until Brenda 05/02/11 at 1723, Sleep, Intra-Operative (Intra-Procedure), Routine Given 05/02/2011 1:35 PM EST 1 mg Given 05/02/2011 1:29 PM EST 1 mg Given 05/02/2011 1:26 PM EST 1 mg documented in this encounter Active and Recently Administered Medications Times are shown in EST. PRN Medication Order 04/30/2011 05/01/2011 05/02/2011 fentaNYL 50mcg/mL injection (CANCELED) ONCE PRN, Starting on Brenda 05/02/11 at 1322, Until Brenda 05/02/11 at 1723, Pain, Intra-Operative (Intra-Procedure), Routine 1322 (Given - Provid er: Ross Frausto RN)1326 (Given - Provider: Ross Frausto RN)1329 (Given - Provider: Ross Frausto RN)1335 (Given - Provider: Ross Frausto RN) midazolam (VERSED) injection (CANCELED) ONCE PRN, Starting on Brenda 05/02/11 at 1322, Until Brenda 05/02/11 at 1723, Sleep, Intra-Operative (Intra-Procedure), Routine 1322 (Given - Provid er: Ross Frausto RN)1326 (Given - Provider: Ross Frausto, GILDA)1329 (Given - Provider: Ross Frausto RN)1335 (Given - Provider: Ross Frausto RN) documented in this encounter Care Teams Shoe Lining Fitter Relationship Specialty Start Date End Date Kaley Mike MD [address] [place] [address] PCP - General 08/31/10 03/04/13 documented as of this encounter
--- OUTSIDE RECORDS SUMMARY | 2024-06-11 02:53 | XMS_ITS | Encounter Summary ---
[place] [address] Care Team Providers Care Business Practices Officer Name Role Phone Kaley Mike MD Primary Care Provider [phone] Reason for Visit * Reason Onset Date Comments Medication Refill 03/28/2011 Encounter Details Date Type Department Care Team (Late st Contact Info) Description 03/28/2011 Refill [place] [phone] Tata Swartz MD Menetrier disease (Primary Dx) Social History Tobacco Use Types [...] hemorrhage documented in this encounter Care Teams Business Practices Officer Relationship Specialty Start Date End Date Kaley Mike MD [address] [place] [address] PCP - General 08/31/10 03/04/13 documented as of this encounter
--- OUTSIDE RECORDS SUMMARY | 2024-06-11 02:53 | XMS_ITS | Encounter Summary ---
Author Organization [facility] [place] [address] Care Team Providers Care Automotive Service Professional Name Role Phone Kaley Mike MD Primary Care Provider [phone] Reason for Referral * Consultation (Routine) - Closed Specialty Diagnoses / Procedures Referred By Conttatiana t Referred To Contact Dermatology Diagnoses Sebaceous cyst Saturnino Delgado MD [facility] [place] [address] [facility] [address] [place] [address] Referral ID Status Reason Start Date Expiration Date V isits Requested Visits Authorized [id number] Closed Consult Only 09/21/2010 03/20/2011 1 1 Reason for Visit * Reason Comments Follow-up Encounter Details Date Type Department Care Team (Late st Contact Info) Description 09/21/2010 2:00 PM EDT Follow-Up [place] [address] Saturnino Delgado MD [facility] [place] [address] Sebaceous cyst (Primary Dx) Discharge Disposition: Home Social [...] Sign Reading Time Taken Comments Blood Pressure 139/84 09/21/2010 2:26 PM EDT Pulse 86 09/21/2010 2:26 PM EDT Temperature - - Respiratory Rate 16 09/21/2010 2:26 PM EDT Oxygen Saturation - - Inhaled Oxygen Concentration - - Weight - - Height - - Body Mass Index - - documented in this encounter Progress Notes * Saturnino Delgado - 09/21/2010 2:42 PM EDT Subjective: Patient ID: Froy Spain is a 35 y.o. male. HPI 35 years male who presents for follow up care. 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 In May he had post hospitalization follow up after being admitted to [facility] for an exacerbation ofher Menetier's disease. At that time he was noting a persistent foot drop and continued weakness. In the interim, he notes the following: - foot drop and generalized weakness is resolved - his disease is well controlled and he has gain weight since he has been able to tolerate PO - his WPW is stable and cards has signed off any interventions - he complains of a small mass between the eyes; first noticed 6 months ago, no pain, no discharge,no f/c, would like it removed Review of Systems All other systems reviewed and are negative. 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 He appears well- developed and well-nourished. No distress. HENT: Head: Normocephalic and atraumatic. Mouth/Throat: No oropharyngeal exudate. Eyes: EOM are normal. Pupils are equal, round, and reactive to light. No scleral icterus. Neck: Normal range of motion. Cardiovascular: Normal rate, regular rhythm, normal heart sounds and intact distal pulses. No murmur heard. Pulmonary/Chest: Effort normal and breath sounds normal. No respiratory distress. He has no wheezes. He has no rales. Abdominal: Soft. Bowel sounds are normal. He exhibits no distension. No tenderness. He has no rebound and no guarding. Musculoskeletal: Normal range of motion. He exhibits no edema. Neurological: He is alert and oriented to person, place, and time. No cranial nerve deficit. He exhibits normal muscle tone. Skin: Skin is warm and dry. He is not diaphoretic. Psychiatric: He has a normal mood and affect. Assessment and Plan: 35 yo M w/ Meneteir's disease and a history of znsq-knadaowuk-rmecm syndrome who is doing very well. He is gain weight and his neurological complaints have resolved. From a cardiovascular prospective, he is stable without any complaints of dizziness, lightheadedness or chest discomfort. Cardiology feels that he doesn't require any intervention at this time. PLAN: - sebaceous cyst over the upper bridge of the nose - refer to derm for removal - see back in a one year or earlier for full physical * Karely Farfan MD - 09/21/2010 2:40 PM EDT The case was discussed at the time of the visit or immediately after the visit. The assessment and plan were formulated in discussion with me and I agree with them as documented. I have reviewed the history, physical exam, assessment and plan with the resident. Major issues discussed today: Menetrier's disease, doing well with current management. Sebaceous cyst over nasal bridge Plan: Continue current management of Menetrier's (managed in GI) Refer to dermatology documented in this encounter Plan of Treatment Scheduled Referrals Name Type Priority Associated Diagnoses Order Schedule REFERRAL TO DERMATOLOGY Outpatient Referral Routine Sebaceous cyst Ordered: 09/21/2010 documented as of this encounter Visit Diagnoses Diagnosis Sebaceous cyst- Primary documented in this encounter Care Teams Automotive Service Professional Relationship Specialty Start Date End Date Kaley Mike MD [address] [place] [address] PCP - General 08/31/10 03/04/13 documented as of this encounter
--- OUTSIDE RECORDS SUMMARY | 2024-06-11 02:53 | XMS_ITS | Encounter Summary ---
Author Organization [facility] [place] [address] Care Team Providers Care Director Aeronautics Commission Name Role Phone Kaley Mike MD Primary Care Provider [phone] Encounter Details Date Type Department Care Team (Late st Contact Info) Description 09/20/2010 Abstract [place] [phone] Frieda Dalton RN Social History Tobacco Use Types Packs/Day [...] on filedocumented in this encounter Care Teams Director Aeronautics Commission Relationship Specialty Start Date End Date Kaley Mike MD [address] [place] [address] PCP - General 08/31/10 03/04/13 documented as of this encounter
--- OUTSIDE RECORDS SUMMARY | 2024-06-11 02:53 | XMS_ITS | Encounter Summary ---
Author Organization Formerly [facility] Address [facility] [place] [address] Care Team Providers Care Field Sales Agent Name Role Phone Moisés Story APRN Primary Care Provider [phone] Encounter Details Date Type Department Care Team (Late st Contact Info) Description 08/16/2010 11:00 AM EDT Procedure [place] [address] Karel Haque MD [facility] [place] [address] Social History Tobacco Use Types Packs/Day Years Used Date Smoking Tobacco: Never Assessed Sex and Gender Information Value Date Recorded Sex Assigned at Not on file Gender Identity Not on file Sexual Orientation Not on file documented as of this encounter Plan of Treatment Not on file documented as of this encounter Visit Diagnoses Not on filedocumented in this encounter Care Teams Field Sales Agent Relationship Specialty Start Date End Date Moisés Story APRN [address] [place] [address] PCP - General 05/09/10 08/30/10 documented as of this encounter
--- OUTSIDE RECORDS SUMMARY | 2024-06-11 02:53 | XMS_ITS | Encounter Summary ---
[place] [address] Care Team Providers Care Grout Machine Tender Name Role Phone Kaley Mike MD Primary Care Provider [phone] Reason for Visit * Reason Comments GI Problem Encounter Details Date Type Department Care Team (Latest Contact Info) Description 02/22/2011 3:00 PM EDT Clinical Support [place] [phone] Maribell Yao RN Gastropathy (Primary Dx) Discharge [...] on file documented as of this encounter Progress Notes * Maribell Yao RN - 02/22/2011 4:34 PM EDT Administered (pt- supplied) sandostatin LAR 20 mg IM right gluteus exp 04/30, lot# [id number]. (see order of Dr Swartz) Tolerated well. documented in this encounter Plan of Treatment Not on file documented as of this encounter Visit Diagnoses Diagnosis Gastropathy- Primary Unspecified disorder of stomach and duodenum documented in this encounter Care Teams Grout Machine Tender Relationship Specialty Start Date End Date Kaley Mike MD [address] [place] [address] PCP - General 08/31/10 03/04/13 documented as of this encounter
--- OUTSIDE RECORDS SUMMARY | 2024-06-11 02:53 | XMS_ITS | Encounter Summary ---
[place] [address] Care Team Providers Care Tool Room Gear Machine Operator Name Role Phone Kaley Mike MD Primary Care Provider [phone] Reason for Visit * Reason Comments Follow-up Encounter Details Date Type Department Care Team (Latest Contact Info) Description 05/02/2011 11:30 AM EST Clinical [place] [phone] Maribell Yao RN GI disease (Primary Dx) Discharge Disposition: Home Social [...] Progress Notes * Maribell Yao RN - 05/02/2011 11:54 AM EST Sandostatin LAR10 mg given IM in to R gluteal muscle without difficulty. Lot # [id number], Exp 2012 documented in this encounter Plan of Treatment Not on file documented as of this encounter Visit Diagnoses Diagnosis GI disease- Primary Unspecified disorder of intestine documented in this encounter Care Teams Tool Room Gear Machine Operator Relationship Specialty Start Date End Date Kaely Mike MD [address] [place], [place] [id number] PCP - General 08/31/10 03/04/13 documented as of this encounter
--- OUTSIDE RECORDS SUMMARY | 2024-06-11 02:53 | XMS_ITS | Encounter Summary ---
[place] [address] Care Team Providers Care Net Mender Name Role Phone Kaley iMke MD Primary Care Provider [phone] Reason for Visit * Reason Comments Other gastropathy Encounter Details Date Type Department Care Team (Latest Contact Info) Description 09/24/2010 4:00 PM EDT Clinical [place] [phone] Maribell Yao RN Gastropathy (Primary Dx) Discharge [...] Progress Notes * Maribell Yao RN - 09/24/2010 4:40 PM EDT Injection of octreotide LAR 10 mg IM into left gluteal muscle. Exp 01/2012, lot [id number], [employer]. documented in this encounter Plan of Treatment Not on file documented as of this encounter Visit Diagnoses Diagnosis Gastropathy- Primary Unspecified disorder of stomach and duodenum documented in this encounter Care Teams Net Mender Relationship Specialty Start Date End Date Kaley Mike MD [address] [place], [place] [id number] PCP - General 08/31/10 03/04/13 documented as of this encounter
--- OUTSIDE RECORDS SUMMARY | 2024-06-11 02:53 | XMS_ITS | Encounter Summary ---
[place] [address] Care Team Providers Care Crepe Sole Wire Brusher Name Role Phone Kaley Mike MD Primary Care Provider [phone] Reason for Visit * Reason Onset Date Comments Medication Refill 01/28/2013 Encounter Details Date Type Department Care Team (Late st Contact Info) Description 01/28/2013 Refill [place] [phone] Zak Padilla MD Menetrier disease (Primary Dx) Social History [...] hemorrhage documented in this encounter Care Teams Crepe Sole Wire Brusher Relationship Specialty Start Date End Date Kaley Mike MD [address] [place] [address] PCP - General 08/31/10 03/04/13 documented as of this encounter
--- OUTSIDE RECORDS SUMMARY | 2024-06-11 02:53 | XMS_ITS | Encounter Summary ---
[place] [address] Care Team Providers Care Antique Dealer Name Role Phone Kaley Mike MD Primary Care Provider [phone] Reason for Visit * Reason Comments GI Problem Encounter Details Date Type Department Care Team (Latest Contact Info) Description 12/24/2010 9:00 AM EDT Clinical [place] [phone] Maribell Yao RN GI disease (Primary Dx) [...] Progress Notes * Maribell Yao RN - 12/25/2010 8:11 AM EDT Sandostatin LAR [place] 20 mg (lot# [id number], exp 01/29) given IM into RUQ gluteal muscle after icing the area. Pt tolerated with moderate discomfort during injection. documented in this encounter Plan of Treatment Not on file documented as of this encounter Visit Diagnoses Diagnosis GI disease- Primary Unspecified disorder of intestine documented in this encounter Care Teams Antique Dealer Relationship Specialty Start Date End Date Kaley Mike MD [address] [place] [address] PCP - General 08/31/10 03/04/13 documented as of this encounter
--- OUTSIDE RECORDS SUMMARY | 2024-06-11 02:53 | XMS_ITS | Encounter Summary ---
[place] [address] Care Team Providers Care Florist Manager Name Role Phone Kaley Mike MD Primary Care Provider [phone] Reason for Visit * Reason Comments GI Problem Encounter Details Date Type Department Care Team (Latest Contact Info) Description 01/25/2011 4:00 PM EDT Clinical [place] [phone] Maribell Yao RN GI disease (Primary Dx) [...] Progress Notes * Maribell Yao RN - 01/25/2011 3:41 PM EDT sandostatin 20 mg lot [id number] exp 04/29 given IM into RUQ gluteal muscle with mild discomfort for pt. Pt reports that discomfort typically lasts less than 24 hrs. documented in this encounter Plan of Treatment Not on file documented as of this encounter Visit Diagnoses Diagnosis GI disease- Primary Unspecified disorder of intestine documented in this encounter Care Teams Florist Manager Relationship Specialty Start Date End Date Kaley Mike MD [address] [place] [address] PCP - General 08/31/10 03/04/13 documented as of this encounter
--- OUTSIDE RECORDS SUMMARY | 2024-06-11 02:53 | XMS_ITS | Encounter Summary ---
Author Organization Formerly [facility] [place] [address] Care Team Providers Care Ticketer Name Role Phone Kaley Mike MD Primary Care Provider [phone] Encounter Details Date Type Department Care Team (Late st Contact Info) Description 12/28/2010 Abstract [place] [phone] Delaney Ramirez RN Social History Tobacco Use Types Packs/Day [...] on filedocumented in this encounter Care Teams Ticketer Relationship Specialty Start Date End Date Kaley Mike MD [address] [place] [address] PCP - General 08/31/10 03/04/13 documented as of this encounter
--- OUTSIDE RECORDS SUMMARY | 2024-06-11 02:53 | XMS_ITS | Encounter Summary ---
Author Organization [facility] [address] Care Team Providers Care Sleeper Cutter Name Role Phone Kaley Mike MD Primary Care Provider [phone] Encounter Details Date Type Department Care Team (Late st Contact Info) Description 09/04/2012 10:00 AM EDT [place] [phone] Tata Swartz MD Menetrier disease (Primary Dx); Colon polyps Discharge Disposition: Home Social History Tobacco Use [...] Sign Reading Time Taken Comments Blood Pressure 149/75 09/04/2012 10:03 AM EDT Pulse 80 09/04/2012 10:03 AM EDT Temperature - - Respiratory Rate - - Oxygen Saturation - - Inhaled Oxygen Concentration - - Weight 99.3 kg (219 lb) 09/04/2012 10:03 AM EDT Height 177.8 cm (5' 10) 09/04/2012 10:03 AM EDT Body Mass Index 31.42 09/04/2012 10:03 AM EDT documented in this encounter Progress Notes * Karel Haque MD - 09/07/2012 7:52 AM EDT The patient was seen and examined by Dr. Swartz. I have reviewed the history, physical, assessment and plan, and I agree with them as documented. * Tata Swartz MD - 09/04/2012 10:16 AM EDT Gastroenterology and Hepatology Follow up [...] due to abdominal discomfort and mild nausea. Past Medical History: Colonic polyps - 2TAs and 1 HP 2008 ?WPW/. 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 Off octreotide for a year and half. (off since May 2011) Feeling tired. No weight loss. Good appetite. Has gained weight. Early satiety - often. +nausea. No vomiting. He takes omeprazole and it controls his heartburn. He takes 40mg in am. ROS: No fever or chills. No chest pain or SOB No cough No dysuria or hematuria. No joint aches or swelling. No diarrhea, melena or BRBPR. No leg swelling. Muscles sore. Physical Exam: BP 149/75 Pulse 80 Ht 177.8 cm (5' 10) Wt 99.338 kg (219 lb) BMI 31.42 kg/m2 Thin male. NAD. PERRL, EOMI, anicteric. No oral lesions. RRR no M LUNGS: CTA Abdomen has normoactive BS. Soft, ND. no HSM. No LE edema. Pertinent lab/imaging/endoscopy workup to date: No new labs. 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 He demonstrated endoscopic and clinic improvement with Octreotide. He has been doing well with the same nonspecific symptoms. -Will perform EGD to reassess the Menetrier's disease and also for surveillance for gastric cancer. - Due for colonoscopy in a few months, thus will perform colonoscopy for surveillance given historyof adenomatous polyps. - Basic lab work including CBC, Hepatic panel (albumin) and BMP. - Follow up in 1 yr. Cam Swartz MD Gastroenterology and Hepatology Fellow documented in this encounter Miscellaneous Notes * Addendum Note - Ton Schneider - 09/04/2012 10:36 AM EDTAddended by: TON SCHNEIDER on: 09/04/2012 10:36 AM Modules accepted: Orders documented in this encounter Plan of Treatment Not on file documented as of this encounter Procedures Procedure Name Priority Date/Time Associated Diagnosis Comments DIFFERENTIAL, AUTOMATED Routine 09/04/2012 10:41 AM EDT CBC (WITH DIFF) Routine 09/04/2012 10:41 AM EDT Menetrier disease HEPATIC FUNCTION PANEL Routine 09/04/2012 10:41 AM EDT Menetrier disease BASIC METABOLIC PANEL Routine 09/04/2012 10:41 AM EDT Menetrier disease documented in this encounter Results * Differential, Automated (09/04/2012 10:41 AM EDT) Neutrophil % 48.4 34.0 - 71.0 % CERNER MILLENNIUM Neutrophil Absolute 2.64 1.50 - 6.30 x10(3)/mcL CERNER MILLENNIUM Lymph % 37.1 19.0 - 53.0 % CERNER MILLENNIUM Lymphocytes Abs 2.0 1.0 - 3.6 x10(3)/mcL CERNER MILLENNIUM Monocyte % 9.9 4.0 - 13.0 % CERNER MILLENNIUM Monocyte Abs 0.5 0.2 - 1.0 x10(3)/mcL CERNER MILLENNIUM Eos % 3.7 0.0 - 7.0 % CERNER MILLENNIUM Eosinophils Abs 0.2 0.0 - 0.5 x10(3)/mcL CERNER MILLENNIUM Basophil % 0.7 0.0 - 2.0 % CERNER MILLENNIUM Baso Absolute 0.0 0.0 - 0.2 x10(3)/mcL CERNER MILLENNIUM Immature Gran % 0.20 0.00 - 0.66 % CERNER MILLENNIUM Comment: Immature granulocytes(IG's)percentage and absolute count will include metamyelocytes, myelocytes, and promyelocytes. Blood smears from CBCs yielding IG's will be scanned manually for concordance. If this scan disagrees with the automated IG or if promyelocytes are noted, a manual differential will be performed. Immature Gran Absolute 0.01 0.00 - 0.05 x10(3)/mcL CERNER MILLENNIUM Blood specimen (specimen) 09/04/2012 10:41 AM EDT 09/04/2012 10:44 AM EDT L Nir Haque MD HEMATOLOGY ORDERABLE [facility] * Hepatic Function Panel (09/04/2012 10:41 AM EDT) Protein, Total 6.7 6.4 - 8.3 gm/dL CERNER MILLENNIUM Albumin 4.4 3.2 - 5.2 gm/dL CERNER MILLENNIUM Aspartate Aminotransferase 28 0 - 39 unit/L CERNER MILLENNIUM Alanine Aminotransferase 32 0 - 55 unit/L CERNER MILLENNIUM Alkaline Phosphatase 71 40 - 120 unit/L CERNER MILLENNIUM Bilirubin, Total 0.4 0.2 - 1.3 mg/dL CERNER MILLENNIUM Bilirubin, Direct 0.1 0.0 - 0.3 mg/dL CERNER MILLENNIUM Blood specimen (specimen) 09/04/2012 10:41 AM EDT 09/04/2012 10:44 AM EDT Narrative Resulting Agency Comment Spec In Lab L Nir Haque MD CHEMISTRY ORDERABLES CERNER MILLENNIUM * Basic Metabolic Panel (non-fasting) (09/04/2012 10:41 AM EDT) Glucose 94 60 - 199 mg/dL CERNER MILLENNIUM Comment:Diabetes: >=200 mg/d L plus symptoms Blood Urea Nitrogen 19 10 - 20 mg/dL CERNER MILLENNIUM Creatinine 1.26 0.80 - 1.50 mg/dL CERNER MILLENNIUM Comment: Please note that the pediatric reference intervals supplied above were not validated at [facility]. Results from pediatric patients should be interpreted in conjunction to the patient's age, height and muscle mass. Sodium 138 135 - 145 mmol/L CERNER MILLENNIUM Potassium 3.8 3.5 - 5.0 mmol/L CERNER MILLENNIUM Comment: Please note: ??Patients with WBC >100,000 may have falsely elevated Potassium levels. ??For accurate Potassium quantification in these patients send serum separator tube (gold top) for subsequent determinations. ??Contact the Clinical Chemistry Laboratory if there are any questions. Chloride 103 98 - 107 mmol/L CERNER MILLENNIUM Carbon Dioxide 28 22 - 31 mmol/L CERNER MILLENNIUM Anion Gap 7 5 - 15 mmol/L CERNER MILLENNIUM Calcium 8.7 8.5 - 10.5 mg/dL CERNER MILLENNIUM Est Glomerular Filtration Rate >60 >=60 CERNER MILLENNIUM Comment: The National Kidney Disease Education Program (NKDEP) has recommended all laboratories report estimated GFR (eGFR) along with plasma creatinine measurements to assist you with recognition of early kidney disease. Caveats: ??Plasma creatinine should be at steady-state (unchanged within the past week). For patients multiply eGFR by 1.2. The MDRD equation was developed using patients between the ages of 18 and 70 years. ?? The MDRD equation has not been validated for patients < 18 years of age and should not be used to assess renal function in the pediatric population. ??The MDRD eGFR equation will also overestimate the true GFR of patients above the age of 70. ??This overestimation is variable but increases with age. At present, NKDEP does NOT recommend using [...] with diabetic kidney disease. References: http://nkdep.nih.gov/resources/NKDEP_Suggestn4Labs_0606_508.pdf http://www.kidney.org/professionals/kls/pdf/faq_gfr.pdf Gasper K, Sergio NA, Mary Ann AK, Alexey TS, Dexter AD, Taina STEFANI. Relative performance of the MDRD and CKD-EPI equations for estimating glomerular filtration rate among patients with varied clinical presentations. Clin J Am Soc Nephrol;6:1963-72. Blood specimen (specimen) 09/04/2012 10:41 AM EDT 09/04/2012 10:44 AM EDT Narrative Resulting Agency Comment Spec In Lab L Nir Haque MD CHEMISTRY ORDERABLES [facility] * CBC (with Diff) (09/04/2012 10:41 AM EDT) White Blood Cell 5.4 4.0 - 10.0 x10(3)/mcL [facility] Red Blood Cell 5.05 4.63 - 6.08 x10(6)/mcL CERNER MILLENNIUM Hemoglobin 15.9 13.7 - 17.5 gm/dL CERNER MILLENNIUM Hematocrit 45.4 40.0 - 51.0 % CERNER MILLENNIUM Mean Cell Volume 89.9 79.0 - 92.0 fL CERNER MILLENNIUM Mean Cell Hemoglobin 31.5 25.6 - 32.2 pg CERNER MILLENNIUM Mean Cell Hemoglobin Concentration 35.0 32.0 - 36.5 gm/dL CERNER MILLENNIUM Platelet 169 145 - 370 x10(3)/mcL CERNER MILLENNIUM RDW Standard Deviation 40.7 35.0 - 46.0 fL CERNER MILLENNIUM RDW coefficient of variation 12.7 10.9 - 14.4 % CERNER MILLENNIUM Mean Platelet Volume 9.4 9.0 - 12.0 fL CERNER MILLENNIUM Blood specimen (specimen) 09/04/2012 10:41 AM EDT 09/04/2012 10:44 AM EDT Narrative Resulting Agency Comment Spec In Lab L Nir Haque MD HEMATOLOGY ORDERABLE S [facility] documented in this encounter Visit Diagnoses Diagnosis Menetrier disease- Primary Gastric mucosal hypertrophy without mention of hemorrhage Colon polyps Benign neoplasm of colon documented in this encounter Care Teams Sleeper Cutter Relationship Specialty Start Date End Date Kaley Mike MD [address] [place] [address] PCP - General 08/31/10 03/04/13 documented as of this encounter
--- OUTSIDE RECORDS SUMMARY | 2024-06-11 02:53 | XMS_ITS | Encounter Summary ---
Author Organization [facility]ly [facility] [place] [address] Care Team Providers Care Projection Technician Name Role Phone Kaley Mike MD Primary Care Provider Encounter Details Date Type Department Care Team (Late st Contact Info) Description 09/20/2010 Abstract [place] [phone] Frieda Dalton RN Social History Tobacco Use [...] on filedocumented in this encounter Care Teams Projection Technician Relationship Specialty Start Date End Date Kaley Mike MD [address] [place] [address] PCP - General 08/31/10 03/04/13 documented as of this encounter
--- OUTSIDE RECORDS SUMMARY | 2024-06-11 02:53 | XMS_ITS | Encounter Summary ---
Author Organization Formerly [facility] Address [facility] [place] [address] Care Team Providers Care Shingle Weaver Name Role Phone Kaley Mike MD Primary Care Provider Reason for Visit * Reason Comments Advice Only recurrent cyst nasal bridge Encounter Details Date Type Department Care Team (Late st Contact Info) Description 02/18/2013 1:15 PM EDT Follow-[place] [address] Jay Vasquez MD [facility] [place] [address] Follicular cyst (Primary Dx) Discharge Disposition: Home Social [...] Sign Reading Time Taken Comments Blood Pressure 158/95 02/18/2013 1:28 PM EDT Pulse 70 02/18/2013 1:28 PM EDT Temperature - - Respiratory Rate - - Oxygen Saturation - - Inhaled Oxygen Concentration - - Weight 88.4 kg (194 lb 12.8 oz) 02/18/2013 1:28 PM EDT Height 179.1 cm (5' 10.5) 02/18/2013 1:28 PM ED T Body Mass Index 27.56 02/18/2013 1:28 PM EDT documented in this encounter Patient Instructions * Patient Instructions* Daja Ballard RN - 02/18/2013 1:49 PM EDT You were given written and verbal preoperative instructions today. To prepare for your upcoming surgery, please review the Pre-Operative Instruction brochure that youwere given at today's appointment. Feel free to call our office [phone] if you have any questions or concerns. We monitor the phones from 8-5 Friday through Friday. documented in this encounter Progress Notes * Daja Ballard RN - 02/18/2013 1:48 PM EDT Pre-Op Teaching for Surgery Surgery: excision cyst nasal bridge Written and verbal pre-operative instructions were given and reviewed with patient: Patient was advised to discontinue use of NSAIDS and aspirin products (unless otherwise advised by patient's PCP/Cigarette Making Machine Catcher for cardiac symptoms), fish oil, Vitamin E and herbal supplements for 14 days prior to surgery, to perform the pre-op scrub, and to coordinate a ride home following surgery. Smoking status and medications were further reviewed to rule out/address current use of Nicotine, Coumadin, Plavix, Estrogen or Tamoxifen. Photos were taken Patient was instructed to call the clinic at with any questions or concerns prior tosurgery. * Jay Vasquez MD - 02/18/2013 1:39 PM EDT Plastic Surgery Follow up Note Reason for visit: F/U status post procedure Date of surgery: 01/31/2011 Procedure(s): Excision subcutaneous cyst nasal dorsum at radix HPI: Pt returns to clinic today for the first time since his procedure. He reports that he the cysthas recurred in the exact same location that his prior cyst was located. He denies drainage from the cyst. He denies pain, he does report this is bothersome to him when wearing sunglasses. He denies infection of the cyst. Examination: BP 158/95 Pulse 70 Ht 179.1 cm (5' 10.5) Wt 88.361 kg (194 lb 12.8 oz) BMI 27.56 kg/m2 Patient is alert, conversant, comfortable, ambulating Nasal dorsum recurrent subcutaneous cystic mass measuring 1.2 cm, non-tender, non-inflamed. 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 We discussed the risk of recurrence and options for treatment focusing on excision. I advised I will contact him with pathology results post-op. We discussed potential risks and complications which include but are not limited to: Pain, bleeding, infection, scarring, asymmetry, hematoma, seroma, poor cosmetic outcome, failure ofprocedure, possible need for revision, damage to adjacent structures. Plan: 1. Schedule for excision of recurrent cyst MNS Procedure: As above Timeframe: elective Time allotted: 45 minutes CPT : 48567 Follow up: prn. I will contact him with pathology results. I, Gabrielle Llanes, am acting as scribe for Dr Vasquez. All work documented was performed by Dr Vasquez. ???I performed the above scribed service and agree with the accuracy of the note?? JAY VASQUEZ MD. documented in this encounter Miscellaneous Notes * Miscellaneous - Provider, Scanning - 03/16/2013 12:44 PM EDT documented in this encounter Plan of Treatment Not on file documented as of this encounter Visit Diagnoses Diagnosis Follicular cyst- Primary Follicular cyst of ovary documented in this encounter Care Teams Shingle Weaver Relationship Specialty Start Date End Date Kaley Mike MD [address] [place] [address] PCP - General 08/31/10 03/04/13 documented as of this encounter
--- OUTSIDE RECORDS SUMMARY | 2024-06-11 02:53 | XMS_ITS | Encounter Summary ---
[place] [address] Care Team Providers Care Heating Equipment Repairer Name Role Phone Kaley Mike MD Primary Care Provider [phone] Reason for Visit * Reason Onset Date Comments Medication Problem 11/08/2010 Encounter Details Date Type Department Care Team (Late st Contact Info) Description 11/08/2010 Tele[place] [phone] Tata Swartz MD Medication Problem Social History Tobacco Use Types Packs/Day Years [...] Telephone Encounter - Maribell Yao RN - 11/08/2010 2:12 PM EDT Pt calling to report that after the last couple of injections, symptom relief seems to be diminishing. Asking if dose should be increased. Refer to Dr Swartz documented in this encounter Plan of Treatment Not on file documented as of this encounter Visit Diagnoses Not on filedocumented in this encounter Care Teams Heating Equipment Repairer Relationship Specialty Start Date End Date Kaley Mike MD [address] [place], [place] [id number] PCP - General 08/31/10 03/04/13 documented as of this encounter
--- OUTSIDE RECORDS SUMMARY | 2024-06-11 02:53 | XMS_ITS | Encounter Summary ---
Author Organization [facility] Address [facility] [place] [address] Care Team Providers Care Chassis Wirer Name Role Phone Kaley Llamas MD Primary Care Provider [phone] Reason for Visit * Reason Comments Advice Only cyst on nose Encounter Details Date Type Department Care Team (Late st Contact Info) Description 01/01/2011 2:20 PM EDT Office [place] [address] Jay Metzger MD [facility] [place] [address] Skin lesion of face (Primary Dx) Discharge Disposition: Home Social History [...] this encounter Patient Instructions * Patient Instructions* Chiara Zheng CMA - 01/01/2011 3:43 PM EDT Welcome to [facility], your secure online access to your electronic medical record at [facility]. Using [facility] you will be able to send messages to your providers, view your test results, renew prescriptions, schedule appointments, and much more. Follow these instructions to enter your personal [facility] account for the first time: 1. Start your internet browser. Go to [email or web address] and click on the myD-H link. 2. Click SIGN UP NOW to go to the NEW MEMBER SIGN UP page. 3. Enter your myD-H Access Code exactly as it appears below. (You will not need this access code after you have completed the sign-up process.) ?? Your [facility] Access Code: [email or web address] ?? Expires: 02/15/11 03:43 PM ?? IMPORTANT: This Access Code will on the above mentioned date. If you do not sign up before this date, you will need to request a new Access Code number. 4. Enter your Date of (mm/dd/yyyy) and zip code click SUBMIT to go to the next page. 5. Create a myD-H identification (ID). This will be your myD-H login ID and cannot be changed, so [...] know when new information is available in myD-H. 9. Click SIGN UP to complete the process. You can now view your electronic medical record. If you have any questions about myD-H or your Access Code, please call for [place], for [place] or for [place]. If you need technical support, please e-mail [email or web address]. Remember, myD-H is NOT for urgent needs! Always dial 911 for medical emergencies. Please review your pre-op instructions prior to your surgery.If you have any questions please call the plastic surgery nurses at [phone]. Thank You. documented in this encounter Progress Notes * Jay Metzger MD - 01/01/2011 3:51 PM EDT PLASTIC SURGERY CONSULTATION Jay Metzger MD PCP:KALEY LLAMAS MD BUSINESS OFFICE REPRESENTATIVE: Florencia Galvan CC: Facial lesion HPI: Froy Spain is a 35 y.o. male, who is referred for evaluation of a facial lesion that has been present for several years and gradually increased in size. He denies rupture, bleeding or discharge from the lesion and reports no other lesions. The patient presents because they would like the lesion excised. He was seen by Dr Galvan who noted this to be an EIC and reffered for surgical excision. PMH: Patient Active Problem List Diagnoses Code ??? Palpitations 785.1 ??? 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 History of colonic polyps V12.72B ??? Skin lesion of face 709.9BG REVIEW OF SYSTEMS: GI-Metriere's, . 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 Pulm: Negative Past Surgical History Procedure Date ??? Cardiac surgery family history includes Cancer in his paternal grandfather and paternal grandmother. History Social History ??? Marital Status: Spouse Name: N/A Number of Children: N/A ??? Years of Education: N/A Occupational History ??? Not on file. Social History Main Topics ??? Smoking status: Former Smoker -- 1.0 packs/day for 23 years Quit date: 05/29/2010 ??? Smokeless tobacco: Never Used ??? Alcohol Use: Yes 4 Glasses of wine, 4 Cans of beer, 4 Shots of liquor, 4 Drinks containing 0.5 oz of alcohol per week ??? Drug Use: No ??? Sexually Active: Not on file Other Topics Concern ??? Regular Exercise Is At Least 30 Minutes Of Moderate Physical Activity 5 Days A Week. This WouldBe Walking Fast, Playing Tennis, Mowing The Lawn. Regular Exercise Is Also At Least 20 Minutes Of Vigorous Physical Activity 3 Days A Week. This Would Be Jogging, Swimming, Playing Basketball. Do YouGet Regular Exercise? Yes ??? Are You Or Have You Been Threatened Or Abused Physically, Emotionally, Or Sexually By A Partner/spouse/family Member? No Social History Narrative ??? No narrative on file : Current outpatient prescriptions ordered prior to encounter Medication Sig Dispense Refill ??? octreotide acetate (SANDOSTATIN LAR) 20 mg injection Inject 1 kit into the muscle every 28 daysfor 1 dose. 1 kit 2 ??? omeprazole (PRILOSEC) 20 mg capsule Take 40 mg by mouth daily. No Known Allergies There were no vitals filed for this visit. Examination: Gen: pleasant, well-appearing man in no acute distress. Neuro: Perrl eomi fs maew Resp: Regular rate, no stridor or wheezing Upper extrem: wwp, no cee, no lesions Facial: Nasal root lesion, 1.2 cm, intradermal mobile mass, no ulceration, no discharge, no bleeding. ASSESSMENT: 35 y.o. male presents with nasal root EIC-will plan for excision. PLAN: I discussed the nature of this lesion with the patient, educating him about these problems and the risks of excision including infection, scar, bleeding, asymmetry, deformity, RECURRENCE and the need for further surgery. The patient wishes to proceed. I will inform the PCP and BUSINESS OFFICE REPRESENTATIVE of these recommendations. * Chiara Zheng CMA - 01/01/2011 3:43 PM EDT Pre-Op Teaching for Surgery Surgery: Epidermal cyst nose Written and verbal pre-operative instructions given and reviewed with patient. Patient was advised to discontinue use of NSAIDS and aspirin products 14 days prior to surgery unless otherwise advised by patient's PCP/Applications Manager for cardiac symptoms, to perform the pre-op scrub, and coordinate ride home following surgery. Discussed and answered all questions including post opcourse and activity limitations. Photos taken Patient was told to call the clinic for any questions or concerns prior to surgery. documented in this encounter Miscellaneous Notes * Miscellaneous - Katya Leal - 01/23/2011 5:42 PM EDT documented in this encounter Plan of Treatment Not on file documented as of this encounter Visit Diagnoses Diagnosis Skin lesion of face- Primary Unspecified disorder of skin and subcutaneous tissue documented in this encounter Care Teams Chassis Wirer Relationship Specialty Start Date End Date Kaley Llamas MD [address] [place] [address] PCP - General 08/31/10 03/04/13 documented as of this encounter
--- OUTSIDE RECORDS SUMMARY | 2024-06-11 02:53 | XMS_ITS | Encounter Summary ---
Author Organization [facility] Address [facility] [place] [address] Care Team Providers Care Business Control Specialist Name Role Phone Kaley Mike MD Primary Care Provider [phone] Reason for Visit * Reason Comments Medication Refill Encounter Details Date Type Department Care Team (Late st Contact Info) Description 12/13/2012 Refill Internal [place] [address] Saturnino Delgado MD [facility] [place] [address] Social History Tobacco Use Types Packs/Day Years [...] on filedocumented in this encounter Care Teams Business Control Specialist Relationship Specialty Start Date End Date Kaley Mike MD [address] [place] [address] PCP - General 08/31/10 03/04/13 documented as of this encounter
--- OUTSIDE RECORDS SUMMARY | 2024-06-11 02:53 | XMS_ITS | Encounter Summary ---
Author Organization [facility] Address [facility] [place] [address] Care Team Providers Care Transaction Manager Name Role Phone Kaley Mike MD Primary Care Provider [phone] Encounter Details Date Type Department Care Team (Latest Contact Info) Description 05/02/2011 11:56 AM EST - 05/02/2011 2:40 PM EST Hospital Encounter [place] [phone] Karel Maddox MD [facility] [place] [address] Discharge Disposition: Home Social History Tobacco Use [...] GI ENDOSCOPY: WHAT TO EXPECT AT HOME (KAZAKH) documented in this encounter Medications at Time [...] Maddox MD - 05/02/2011 1:26 PM EST [facility] Operative Note Patient Name: Froy Spain : [id number] MR#: [id number] Case Date: 05/02/2011 Surgeon: Surgeon(s) and Role: [...] 3:55 PM EST) Surgical Pathology Report [id number] ? Location: 4T The signing pathologist has [...] mucosa in comparison to the previous biopsy, [id number]. CR-0 05/06/11 VMS 05/06/11 Verified by: ? Asif Shukla MD ?Pathologist ?(Electronic Signature) The attending pathologist whose signature appears on this report has reviewed all diagnostic slides and has edited the gross and/or microscopic portion of the report in rendering the final pathologic diagnosis. [facility] 05/02/2011 3:55 PM EST L Nir Maddox MD PATHOLOGY/CYTOLOGY O LAILA Performing Organization Address City/[facility]/ZIP Co de Phone Number [facility] * Specimen to Pathology (surgical or derm) (05/02/2011 1:51 PM EST) AP Specimen 05/02/2011 1:51 PM EST 05/02/2011 1:51 PM EST Narrative [facility] - 05/02/2011 1:51 PM EST Specimen requisition ordered. ??Separate Pathology report to follow L Nir Maddox MD PATHOLOGY/CYTOLOGY O LAILA Performing Organization Address City/[facility] Co de Phone Number [facility] * UPPER GI ENDOSCOPY (05/02/2011 12:20 PM EST) UPPER GI ENDOSCOPY [facility] Endoscopy Patient Name: Froy Spain ? Procedure Date: 05/02/2011 12:20:50 PM ? [facility]: [id number] ? Date of : 1975 ? Age: 36 ? Procedure: ? Upper GI endoscopy Indications: ? [facility]'s disease Providers: ? L Nir Maddox MD, Ross Frausto, ? RN, Hansa Fan, Security Patrol Driver Referring MD: ?Kaley Mike MD, Tata Swartz [...] Diagnoses Not on filedocumented in this encounter Active and Recently Administered Medications Times are shown in EST. PRN Medication Order 04/30/2011 05/01/2011 05/02/2011 fentaNYL 50mcg/mL injection (CANCELED) ONCE PRN, Starting on Brenda 05/02/11 at 1322, Until Brenda 05/02/11 at 1723, Pain, Intra-Operative (Intra-Procedure), Routine 1322 (Given - Provid er: Ross Frausto RN)1326 (Given - Provider: Ross Frausto, GILDA)1329 (Given - Provider: Ross Frausto, GILDA)1335 (Given - Provider: Ross Frausto, GILDA) midazolam (VERSED) injection (CANCELED) ONCE PRN, Starting on Brenda 05/02/11 at 1322, Until Brenda 05/02/11 at 1723, Sleep, Intra-Operative (Intra-Procedure), Routine 1322 (Given - Provid er: Ross Frausto RN)1326 (Given - Provider: Ross Frausto, RN)1329 (Given - Provider: Ross Frausto, RN)1335 (Given - Provider: Ross Frausto, RN) documented in this encounter Care Teams Transaction Manager Relationship Specialty Start Date End Date Kaley Mike MD [address] [place] [address] PCP - General 08/31/10 03/04/13 documented as of this encounter
--- OUTSIDE RECORDS SUMMARY | 2024-06-11 02:53 | XMS_ITS | Encounter Summary ---
[place] [address] Care Team Providers Care Nurse First Assist Name Role Phone Kaley Mike MD Primary Care Provider [phone] Reason for Visit * Reason Onset Date Comments Prior Authorization 02/05/2013 Encounter Details Date Type Department Care Team (Late st Contact Info) Description 02/05/2013 Telephone [place] [phone] Faby Fritz MA Prior Authorization Social History Tobacco Use Types Packs/Day Years [...] encounter Miscellaneous Notes * Telephone Encounter - Faby Quick CMA - 02/05/2013 2:31 PM EDT Pharmacy Prior Authorization Request [facility] [place] [address] Subscriber Insurance: [place] Medicaid Identification Number: Physician: Zak Padilla Medication Requested: Omeprazole Strength: 20 MG Frequency: BID Disp: Refills: Currently Taking: Yes If yes, previous refill date: Disp: Refills: Patient's diagnosis for this medication: Menetrier's disease ICD-9 CM code for this diagnosis: Prior medications trialed: Medication: Approx Dates: Outcome/Adverse Reactions: Medication: Approx Dates: Outcome/Adverse Reactions: Approval Date: 02-03-13 Expiration Date: 02-03-14 Additional Information: documented in this encounter Plan of Treatment Not on file documented as of this encounter Visit Diagnoses Not on filedocumented in this encounter Care Teams Nurse First Assist Relationship Specialty Start Date End Date Kaley Mike MD [address] [place] [address] PCP - General 08/31/10 03/04/13 documented as of this encounter
--- OUTSIDE RECORDS SUMMARY | 2024-06-11 02:53 | XMS_ITS | Encounter Summary ---
[place] [address] Care Team Providers Care Exercise Manager Name Role Phone Jez Moisés MENDIOLA Primary Care Provider [phone] Reason for Visit * Reason Comments Aftercare, Neon Glass Bender Use Meds Encounter Details Date Type Department Care Team (Latest Contact Info) Description 08/27/2010 4:00 PM EDT Clinical Support [place] [phone] Maribell Yao RN Diarrhea (Primary Dx) Discharge Disposition: Home Social History [...] Sign Reading Time Taken Comments Blood Pressure 135/89 08/27/2010 4:22 PM EDT Pulse 73 08/27/2010 4:22 PM EDT Temperature - - Respiratory Rate - - Oxygen Saturation - - Inhaled Oxygen Concentration - - Weight 85.7 kg (189 lb) 08/27/2010 4:20 PM EDT Height 177.8 cm (5' 10) 08/27/2010 4:20 PM EDT Body Mass Index 27.12 08/27/2010 4:20 PM EDT documented in this encounter Progress Notes * Maribell Yao, RN - 08/27/2010 5:00 PM EDT Sandostatin 10 mg (pt supplied drug) IM administered right ventrogluteal muscle per order of Dr Swartz (lot #[id number], exp Aug 2012). Pt experiences discomfort at injection site for approx one day aftershots per pt. Pt states med is as effective as previously self administered subcu injections, and pt prefers to continue this monthly IM regimen despite discomfort, due to convenience. documented in this encounter Plan of Treatment Not on file documented as of this encounter Visit Diagnoses Diagnosis Diarrhea- Primary documented in this encounter Care Teams Exercise Manager Relationship Specialty Start Date End Date Moisés Story APRN [address] [place] [address] PCP - General 05/09/10 08/30/10 documented as of this encounter
--- OUTSIDE RECORDS SUMMARY | 2024-06-11 02:53 | XMS_ITS | Encounter Summary ---
Author Organization [facility] Address [facility] [place] [address] Care Team Providers Care Manager Cardiac Cath Name Role Phone Jez Moisés MENDIOLA Primary Care Provider Encounter Details Date Type Department Care Team (Latest Contact Info) Description 08/16/2010 10:47 AM EDT - 08/16/2010 1:30 PM EDT Hospital En[place] [address] Karel Maddox MD [facility] [place] [address] Discharge Disposition: Home Social History Tobacco Use Types Packs/Day Years Used Date Smoking Tobacco: Never Assessed Sex and Gender Information Value Date Recorded Sex Assigned at Not on file Gender Identity Not on file Sexual Orientation Not on file documented as of this encounter Medications at Time of Discharge Medication Sig Dispensed Refills Start Date End Date prochlorperazine (COMPAZINE) 5 mg tablet 5 M-2 Tablet(s), PO, PRN with food 07/30/2010 01/01/2011 Omeprazole Magnesium 10 mg SuDR 07/30/2010 08/27/2010 octreotide (SANDOSTATIN LAR DEPOT) 10 mg injection 10 MG = 1 Kit(s), IM, [id number] 07/30/2010 11/20/2010 documented as of this encounter Plan of Treatment Not on file documented as of this encounter Procedures Procedure Name Priority Date/Time Associated Diagnosis Comments SURGICAL PATHOLOGY REPORT Routine 08/16/2010 2:24 PM EDT UPPER GI ENDOSCOPY Routine 08/16/2010 12 :06 PM EDT documented in this encounter Results * SURGICAL PATHOLOGY REPORT (08/16/2010 2:24 PM EDT) Surgical Pathology Report ? [facility] ? Provider: ?? Karel MADDOX ?Pt. Name: ?? FROY CLARK ? Acc #: ?[id number] ?Pt. ? Col Date: ?? 08/16/2010 ? /Sex: ?1975,(35 years),Male ? Rec Date: ?? 08/16/2010 ? LOC: ?4T ? SURGICAL PATHOLOGY ? ---Pathologic Diagnosis--- ? A - Snare (hot snare) gastric body, excision: ? Gastric mucosa with marked foveolar hyperplasia (SEE NOTE). ? There is no evidence of dysplasia or malignancy. ? NOTE: Although the morphological featurs present in the specimen ? overlap with those seen in gastric hyperplastic and juvenile polyps, ? the combination of marked foveolar hyerplasia and glandular atrophy in ? the lesion is consistent with the patients known history of ? Menetrier's disease. Multiple levels were examined. ? CR-0 ? 08/22/10 ? 08/22/10 Verified by: ? Cecil Sepulveda MD ? Pathologist ? (Electronic Signature) ? The attending pathologist whose signature appears on this report has ? reviewed all diagnostic slides and has edited the gross and/or ? microscopic portion of the report in rendering the final pathologic ? diagnosis. ? ---Microscopic Description--- ? Slides reviewed, microscopic description not recorded. ? ---Gross Description--- ? Labeled/Fixative: ? Gastric polyp, formalin. ? Qty/Size/Weight: ?Single, 1.0 x 0.8 x 0.6 cm. ? Tissue Description: ?? [place] polyp. ? Sections/Processi ng: ??Inked black at the base and trisected. ??(T1) ??aje/SNS ? ---Clinical Information--- ? Specimen Submitted: ? A - Snare biopsy (hot snare) gastric body ? Clinical History: ? 35-yr-old with ? of Menetrier's disease, tracked with octreotide ? Clinical Diagnosis: ? Not provided [facility] 08/16/2010 2:24 PM EDT L Nir Maddox MD PATHOLOGY/CYTOLOGY O RDERABLES [facility] * UPPER GI ENDOSCOPY (08/16/2010 12:06 PM EDT) UPPER GI ENDOSCOPY [facility] Endoscopy Patient Name: Froy Clark ? Procedure Date: 08/16/2010 12:06:15 PM ? Date of : 1975 ? Age: 35 ? Procedure: ? Upper GI endoscopy Indications: ? Menetrier's Disease Providers: ? L Nir Maddox MD, Duane Isaac, ? RN, Mila Wright, C Java Developer, ? Tata Swartz MD Referring : ?Moisés Story NP, Saturnino Delgado MD Medicines: ? Midazolam 4 mg IV, Fentanyl 175 ? micrograms IV Complications: ? No immediate [...] ? antiplatelet agents. ASA Grade ? Assessment: II - A [...] ? endoscopy was accomplished without ? difficulty. The patient tolerated the ? procedure well. ? Findings: ? The examined esophagus was normal. Diffuse thick, ? erythematous gastric folds were found in the gastric ? body. These folds were mildly friable. Nodular ? lesions/folds in antrum, one of these lesions was ? biopsied. Biopsy performed with hot snare for ? histology. The examined duodenum was normal. ? Impression: ?- Enlarged gastric folds. Consistent ? with his history of Menetrier's ? disease. There has been interval ? improvement since his last EGD in ? extent of involvement, thickeness of ? folds and mucus. Recommendation: ?- Discharge patient to home (via ? wheelchair). ? - Continue long acting Octreotide. ? - Follow up in GI clinic in 1 month. ? - The attending physician listed ? above was present for the entire ? procedure. ? _ L Nir Maddox MD Signed Date: 08/16/2010 12:54:37 PM Number of Addenda: 0 Note initiated on 08/16/2010 12:06:15 PM [employer]ATION 08/16/2010 12:0 6 PM EDT Unknown GENERAL SURGICAL ORD ERABLES [employer]ATION documented in this encounter Visit Diagnoses Not on filedocumented in this encounter Care Teams Manager Cardiac Cath Relationship Specialty Start Date End Date Moisés Story APRN [address] [place] [address] PCP - General 05/09/10 08/30/10 documented as of this encounter
--- OUTSIDE RECORDS SUMMARY | 2024-06-11 02:53 | XMS_ITS | Encounter Summary ---
Author Organization [facility] Address [facility] [place] [address] Care Team Providers Care Screw Machine Tool Setter Name Role Phone Kaley Mike MD Primary Care Provider [phone] Encounter Details Date Type Department Care Team (Latest Contact Info) Description 09/11/2012 2:50 PM EDT - 09/11/2012 6:20 PM EDT Hospital Encounter [place] [address] Karel Maddox MD [facility] [place] [address] Menetrier disease; Colon polyps Discharge Disposition: Home Social History [...] Sign Reading Time Taken Comments Blood Pressure 140/63 09/11/2012 5:06 PM EDT Pulse 82 09/11/2012 5:06 PM EDT Temperature - - Respiratory Rate 11 09/11/2012 5:06 PM EDT Oxygen Saturation 100% 09/11/2012 5:06 PM EDT Inhaled Oxygen Concentration - - Weight - - Height - - Body Mass Index - - documented in this encounter Discharge Instructions * Discharge Instructions* Marie Arango RN - 09/11/2012 5:18 PM EDT Please call [phone], before 5pm with problems, questions or concerns, after 5pm call the Hospital at [phone] and ask to speak to the Manager Latin lead generation marketing manager and the surveillance operator will contactthat person for you. Discharge instructions reviewed with patient who expresses understanding. You may have received medications before and/or during your procedure which effects your judgement and reaction time. Do not drive, operate machinery, drink alcoholic beverages or make important decisions for 24 hours. Be careful on stairs as you may be unsteady on your feet. You may eat a regular diet as tolerated. Do not smoke if you are alone. IV site: Slight redness or tenderness is normal, you can use a warm compress if you would like. If tenderness and/or redness increase or if foul drainage occurs, please contact your Doctor. * Attachments The following attachments cannot be sent through Care Everywhere. * COLONOSCOPY: WHAT TO EXPECT AT HOME (ALGERIAN) * UPPER GI ENDOSCOPY: WHAT TO EXPECT AT HOME (ALGERIAN) documented in this encounter Medications at Time of Discharge Medication Sig Dispensed Refills Start Date End Date omeprazole (PRILOSEC) 20 mg capsuleIndications:Men etrier disease Take 2 capsules by mouth daily. 90 capsule 12 09/04/2012 01/28/2013 documented as of this encounter H&P Notes * Tata Swartz MD - 09/11/2012 3:30 PM EDT Patient Name: Froy Clark Patient Age: 37 y.o. Birthdate: 1975 Admit date: 09/11/2012 Attending Physician: Karel Maddox MD Gastroenterology and Hepatology Pre-Procedure History and Physical Exam Procedure: EGD: and colonoscopy Indication: Menetrier's disease Off octreotide for 15months. Surveillance for gastric cancer. History of adenomatous polyps in 2008. No changes seen clinic follow up. Patient Active Problem List Diagnoses Code ??? Palpitations 785.1 ??? 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 History of colonic polyps V12.72 ??? Skin lesion of face 709.9 ??? 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 Risks and benefits of the procedure explained to the patient. Consent signed. documented in this encounter Miscellaneous Notes * Miscellaneous - Provider, Scanning - 09/16/2012 3:44 PM EDT * Op Note - Karel Maddox MD - 09/11/2012 4:33 PM EDT [facility] [place] Patient Name: Froy Clark : [id number] MR#: [id number] Case Date: 09/11/2012 Surgeon: Surgeon(s) and Role: * Karel Maddox MD - Primary * Tata Swartz MD Preoperative diagnosis: 37 yo with menetrier's disese off octreotide for a year and half. Needs surveillance for gastric cancer. Postoperative diagnosis: * No post-op diagnosis entered * Procedure(s): UPPER GASTROINTESTINAL ENDOSCOPY,WITH BIOPSY SINGLE OR MULTIPLE COLONOSCOPY, DIAGNOSTIC Please see the Provation procedure report in the Procedures tab in eDH. * Miscellaneous - Provider, Scanning - 09/11/2012 3:56 PM EDT documented in this encounter Plan of Treatment Not on file documented as of this encounter Procedures Procedure Name Priority Date/Time Associated Diagnosis Comments SURGICAL PATHOLOGY REPORT Routine 09/11/2012 7:01 PM EDT SPECIMEN TO PATHOLOGY Routine 09/11/2012 5:40 PM EDT SPECIMEN TO PATHOLOGY Routine 09/11/2012 5:40 PM EDT COLONOSCOPY FLEXIBLE-WITH BX (MSCHAD) Routine 09/11/2012 5:09 PM EDT Menetrier disease Colon polyps UPPER GASTROINTESTINAL ENDOSCOPY,WITH BIOPSY SINGLE OR MULTIPLE Routine 09/11/2012 4:26 PM EDT Menetrier disease Colon polyps COLONOSCOPY FLEXIBLE, WITH BX (WRVU 3.56) 09/11/2012 4:09 PM EDT Menetrier disease Colon polyps UPPER GASTROINTESTINAL ENDOSCOPY,WITH BIOPSY SINGLE OR MULTIPLE (WRVU 2.39) 09/11/2012 4:09 PM EDT Menetrier disease Colon polyps UPPER GI ENDOSCOPY Routine 09/11/2012 4: 07 PM EDT COLONOSCOPY Routine 09/11/2012 4:07 PM EDT documented in this encounter Results * Surgical Pathology Report (09/11/2012 7:01 PM EDT) Surgical Pathology Report ? [facility] ? Provider: ?? Karel MADDOX ?Pt. Name: ?? FROY CLARK ? Acc #: ?[id number] ?Pt. ? Col Date: ?? 09/11/2012 ? /Sex: ?1975,(37 years),Male ? Rec Date: ?? 09/11/2012 ? LOC: ?4T ? SURGICAL PATHOLOGY ? ---Pathologic Diagnosis--- ? Endoscopic biopsies - ? A. Gastric antral and fundic gland mucosa with mild nonspecific reactive ? gastropathy and nonspecific parietal cell alterations of the type sometimes ? seen in hypergastrinemic conditions or in patients on PPI therapy. No H. ? pylori-like microorganism is seen. ? There is no foveolar hyperplasia or cystic dilatation to suggest diagnosis ? of Menetrier disease as seen in previous biopsies (S-11-) ? B. Benign anorectal junctional mucosa with crypt hyperplasia and reactive ? lymphoid hyperplasia. ? CR-PX ? 09/14/12 ? AAS ? 09/14/12 Verified by: ? Josie Arrington MD ? Pathologist ? (Electronic Signature) ? The attending pathologist whose signature appears on this report has ? reviewed all diagnostic slides and has edited the gross and/or ? microscopic portion of the report in rendering the final pathologic ? diagnosis. ? ---Gross Description--- ? A- Labeled/Fixative: Mucosal biopsies-stomach, formalin. ?Quantity/Size: Multiple, ranging from 0.2-0.3 cm. ?Tissue Description: [place] tissues. ?Sections/Processi ng: (T2) ? B- Labeled/Fixative: Mucosal biopsies-rectal polyps, formalin. ?Quantity/Size: Two, 0.1 and 0.2 cm. ?Tissue Description: [place] soft tissues. ?Sections/Processi ng: (T1) ??ejr ? ---Clinical Information--- ? Specimen Submitted: ? A - mucosal biopsies- stomach ? B - mucosal biopsies- rectal polyps ? Clinical History: ? [facility] ? Provider: ?? Karel MADDOX ?Pt. Name: ?? FROY CLARK ? Acc #: ?[id number] ?Pt. ? Col Date: ?? 09/11/2012 ? /Sex: ?1975,(37 years),Male ? Rec Date: ?? 09/11/2012 ? LOC: ?4T ? SURGICAL PATHOLOGY ? 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 history of colonic polyps ? Clinical Diagnosis: ? Same J[facility] MOJICA 09/11/2012 7:01 PM EDT L Nir Maddox MD PATHOLOGY/CYTOLOGY O LAILA Performing Organization Address [facility] de Phone Number JH MOJICA * Specimen to Pathology (surgical or derm) (09/11/2012 5:40 PM EDT) AP Specimen 09/11/2012 5:40 PM EDT 09/11/2012 5:40 PM EDT Narrative JH FLORESIUM - 09/11/2012 5:40 PM EDT Specimen requisition ordered. ??Separate Pathology report to follow L Nir Maddox MD PATHOLOGY/CYTOLOGY O LAILA Performing Organization Address [facility] Co de Phone Number JH MOJICA * Specimen to Pathology (surgical or derm) (09/11/2012 5:40 PM EDT) AP Specimen 09/11/2012 5:40 PM EDT 09/11/2012 5:40 PM EDT Narrative MATTHEWNER MARKIUM - 09/11/2012 5:40 PM EDT Specimen requisition ordered. ??Separate Pathology report to follow L Nir Maddox MD PATHOLOGY/CYTOLOGY O LAILA Performing Organization Address [facility] Co de Phone Number JH MOJICA * UPPER GI ENDOSCOPY (09/11/2012 4:07 PM EDT) Pathologist [facility] UPPER GI ENDOSCOPY [facility] Endoscopy Patient Name: Froy Clark ? Procedure Date: 09/11/2012 4:07 PM ? Date of : 1975 ? Age: 37 ? Order #: [id number] ? Procedure: ? Upper GI endoscopy Indications: ? Jeffyier's disease - off octreotide ? for [address] [place] [address] Providers: ? Kai Maddox MD, Dilcia Cheng, ? RN, Avelina Barnes, Brick Burner, ? Tata Swartz MD Referring MD: ?Kaley Mike MD Medicines: ? Midazolam 5.5 mg IV, Fentanyl 250 ? micrograms IV, Diphenhydramine 50 mg ? IV Complications: ? No immediate complications. Procedure: ? Pre-Anesthesia Assessment: ? - Prior [...] Findings: ? The examined esophagus was normal. ? Thickened gastric folds in cardia and gastric body, ? more prominent on of last upper endoscopy. No ? congestion noted. Nontargeted biopsies were taken ? with a cold forceps for histology . ? The examined duodenum was normal. ? Impression: ?- Prominet gastric folds in cardia ? and body, more prominent than last EGD Recommendation: ?- Proceed with colonoscopy ? - Continue to monitor symptoms at ? this time. ? - Await pathology results. ? - Repeat EGD in 1 yr for surveillance ? of gastric cancer and follow up of ? Menetrier's disease. ? - The attending physician listed ? above was present for the entire ? procedure. ? __ L. Nir Maddox MD 09/11/2012 4:39 PM Number of Addenda: 0 Note Initiated On: 09/11/2012 4:07 PM PROVATION 09/11/2012 4:07 PM EDT Kaley Mike MD GENERAL SURGICAL ORD ERABLES PROVATION * COLONOSCOPY (09/11/2012 4:07 PM EDT) COLONOSCOPY [facility] Endoscopy ___ Patient Name: Froy Clark ? Procedure Date: 09/11/2012 4:07 PM ? Date of : 1975 ? Age: 37 ? Order #: [id number] ? ___ Procedure: ? Colonoscopy Indications: ? High risk colon cancer surveillance: ? Personal history of non-advanced ? adenoma Providers: ? L. Nir Maddox MD, Dilcia Cheng, ? GILDA, Avelina Barnes, Brick Burner, ? Tata Swartz MD Referring : ?Kaley Mike MD Medicines: ? Midazolam 0.5 [...] entire ? procedure. ? _ L. Nir Maddox MD 09/11/2012 5:16 PM Number of Addenda: 0 Note Initiated On: 09/11/2012 4:07 PM PROVATION 09/11/2012 4:07 PM EDT Kaley Mike MD GENERAL SURGICAL ORD ERABLES PROVATION documented in this encounter Visit Diagnoses Diagnosis Menetrier disease Gastric mucosal hypertrophy without mention of hemorrhage Colon polyps Benign neoplasm of colon documented in this encounter Administered Medications Inactive Administered Medications - up to 3 most recent administrations Medication Order MAR Action Action Date Dose Rate Site lactated ringers infusion 100 mL/hr, Intravenous, CONTINUOUS, Starting on Fri09/11/12 at 1530, Until Fri09/11/12 at 2020, Endoscopy (Day of Procedure) New Bag 09/11/2012 3:30 PM EDT 100 mL/hr 100 mL/hr documented in this encounter Active and Recently Administered Medications Times are shown in EDT. Continuous Medication Order 09/09/2012 09/10/2012 09/11/2012 lactated ringers infusion (CANCELED) 100 mL/hr, Intravenous, CONTINUOUS, Starting on Fri09/11/12 at 1530, Until Fri09/11/12 at 2020, Endoscopy (Day of Procedure) 1530 (New Bag - Prov ider: Florencia Calvin RN) PRN Medication Order 09/09/2012 09/10/2012 09/11/2012 diphenhydrAMINE (BENADRYL) injection (CANCELED) ONCE PRN, Starting on Fri09/11/12 at 1615, Until Fri09/11/12 at 2020, Itching, Intra-Operative (Intra-Procedure), Routine 1615 (Given - Provid er: Dilcia Cheng RN)1647 (Given - Provider: Dilcia Cheng RN) fentaNYL 50mcg/mL injection (CANCELED) ONCE PRN, Starting on Fri09/11/12 at 1615, Until Fri09/11/12 at 2020, Pain, Intra-Operative (Intra-Procedure), Routine 1615 (Given - Provid er: Dilcia Cheng RN)1618 (Given - Provider: Dilcia Cheng RN)1621 (Given - Provider: Dilcia Cheng RN)1628 (Given - Provider: Dilcia Cheng RN)1637 (Given - Provider: Dilcia Cheng RN)1645 (Given - Provider: Dilcia Cheng RN) midazolam (VERSED) injection (CANCELED) ONCE PRN, Starting on Fri09/11/12 at 1615, Until Fri09/11/12 at 2020, Sleep, Intra-Operative (Intra-Procedure), Routine 1615 (Given - Provid er: Dilcia Cheng RN)1618 (Given - Provider: Dilcia Cheng RN)1621 (Given - Provider: Dilcia Cheng RN)1628 (Given - Provider: Dilcia Cheng RN)1637 (Given - Provider: Dilcia Cheng RN) documented in this encounter Care Teams Screw Machine Tool Setter Relationship Specialty Start Date End Date Kaley Mike MD [address] [place] [address] PCP - General 08/31/10 03/04/13 documented as of this encounter
--- OUTSIDE RECORDS SUMMARY | 2024-06-11 02:53 | XMS_ITS | Encounter Summary ---
Author Organization Count Includes [facility] [address] Care Team Providers Care Laser Operator Name Role Phone Kaley Llamas MD Primary Care Provider Reason for Referral * Surgical (Routine) - Closed Specialty Diagnoses / Procedures Referred By Alfredo jean Referred To Contact Plastic Surgery Diagnoses Skin lesion of face Florencia Da Silva MD [facility] [place] [address] [facility] [address] [address] Referral ID Status Reason Start Date Expiration Date V isits Requested Visits Authorized [id number] Closed Consult, Test & Treat 12/10/2010 06/08/2011 1 1 Reason for Visit * Reason Comments Skin Check nodule on the nasal root Encounter Details Date Type Department Care Team (Late st Contact Info) Description 12/10/2010 9:30 AM EDT Follow-[place] [address] Florencia Da Silva MD [facility] [place] [address] Skin lesion of face (Primary Dx) Discharge [...] as of this encounter Progress Notes * Florencia Da Silva MD - 12/10/2010 9:08 AM EDT DERMATOLOGY SPOT-CHECK Date of service: 12/10/2010 Froy Spain : 1975 Provider: Florencia Da Silva MD PROBLEM:Nodule on the nasal root The patient is seen at the request of KALEY LLAMAS MD, who instructed the patient to be seen for evaluation of above SKIN HX: HPI Froy Spain is a 35 y.o. year old male here with a one year history of a rubbery nodule on the right nasal root for the past year and getting larger. Seen for one spot-check at this apointment. Knows this is a one-spot check clinic only. Knows will need to make appointment for full skin check if desired or to have other areas checked. ADR: No Known Allergies MEDS: Current outpatient prescriptions ordered prior to encounter Medication Sig Dispense Refill ??? octreotide (SANDOSTATIN LAR) 10 mg injection Inject 20 mg into the muscle every 28 days. 1 each6 ??? Safety [place] (BD SAFETYGLIDE NEEDLE) 27 x 5/8 Ndle by Fixational.(Non-Drug; Combo Route) route. ??? Syringe, Disposable, 3 mL Syrg by Mis.(Non-Drug; Combo Route) route. ??? omeprazole (PRILOSEC) 20 mg capsule Take 40 mg by mouth daily. ??? prochlorperazine (COMPAZINE) 5 mg tablet 5 M-2 Tablet(s), PO, PRN with food ROS General: feeling well EXAM A focused skin exam of the concerning spot was performed. General: NAD, pleasant, cooperative Focused exam of skin: Skin findings: A. 1.5cm soft mobile subcutanous nodule spanning the nasal root ASSESSMENT/PLAN: A. Epidermal inclusion cyst; growing. Discussed treatment options. Will consult Plastic Surgery forremoval for the best cosmetic outcome. Note initiated by: LEV ROTH M.D. Section of Dermatology [facility] cc: KALEY LLAMAS MD documented in this encounter Plan of Treatment Scheduled Referrals Name Type Priority Associated Diagnoses Orde r Schedule REFERRAL TO PLASTIC SURGERY Outpatient Referral Routine Skin lesion of face Ordered: 12/10/2010 documented as of this encounter Visit Diagnoses Diagnosis Skin lesion of face- Primary Unspecified disorder of skin and subcutaneous tissue documented in this encounter Care Teams Laser Operator Relationship Specialty Start Date End Date Kaley Llamas MD [address] [place] [address] PCP - General 08/31/10 03/04/13 documented as of this encounter
--- OUTSIDE RECORDS SUMMARY | 2024-06-11 02:53 | XMS_ITS | Encounter Summary ---
[place] [address] Care Team Providers Care Mixologist Name Role Phone Kaley Mike MD Primary Care Provider [phone] Reason for Visit * Reason Onset Date Comments Results 01/29/2011 Encounter Details Date Type Department Care Team (Late st Contact Info) Description 01/29/2011 Telephone [place] [phone] Amanuel Wells MD Results Social History Tobacco Use Types Packs/Day Years [...] encounter Miscellaneous Notes * Telephone Encounter - Amanuel Wells MD - 01/29/2011 1:10 PM EDT Updated pt about normal urine analysis, negative urine cx and neg chlamydia. Pt symptoms resolved in the interim. No need to f/u or treat. documented in this encounter Plan of Treatment Not on file documented as of this encounter Visit Diagnoses Not on filedocumented in this encounter Care Teams Mixologist Relationship Specialty Start Date End Date Kaley Mike MD [address] [place] [address] PCP - General 08/31/10 03/04/13 documented as of this encounter
--- OUTSIDE RECORDS SUMMARY | 2024-06-11 02:53 | XMS_ITS | Encounter Summary ---
[place] [address] Care Team Providers Care Black Topper Name Role Phone Kaley Mike MD Primary Care Provider [phone] Reason for Visit * Reason Onset Date Comments Prior Authorization 09/27/2011 Encounter Details Date Type Department Care Team (Late st Contact Info) Description 09/27/2011 Telephone [place] [phone] Faby Fritz MA Prior Authorization Social History [...] Telephone Encounter - Faby Quick CMA - 09/27/2011 11:47 AM EDT Prior Authorization Request Who ordered this drug: Saturnino Delgado MD Medication/Dose/Frequency: Omeprazole 20 MG Twice daily Diagnosis related to this medication: Menetrier's Disease Pharmacy to notify of approval: Approval Date: 09-26-11 Expiration Date: 09-24-12 ANY PERTINENT INFORMATION THAT PROVIDER CAN SUPPLY, IE..ON DRUG FOR LONG TIME, HAS TRIED AND FAILEDON OTHER DRUGS???ETC. documented in this encounter Plan of Treatment Not on file documented as of this encounter Visit Diagnoses Not on filedocumented in this encounter Care Teams Black Topper Relationship Specialty Start Date End Date Kaley Mike MD [address] [place] [address] PCP - General 08/31/10 03/04/13 documented as of this encounter
--- OUTSIDE RECORDS SUMMARY | 2024-06-11 02:53 | XMS_ITS | Encounter Summary ---
Author Organization [facility] [place] [address] Care Team Providers Care Contract Manager Name Role Phone Kaley Mike MD Primary Care Provider [phone] Encounter Details Date Type Department Care Team (Late st Contact Info) Description 09/24/2010 Orders [place] [id number] Tata Swartz MD Social History Tobacco Use Types Packs/Day Years [...] on filedocumented in this encounter Care Teams Contract Manager Relationship Specialty Start Date End Date Kaley Mike MD [address] [place] [address] PCP - General 08/31/10 03/04/13 documented as of this encounter
--- OUTSIDE RECORDS SUMMARY | 2024-06-11 02:53 | XMS_ITS | Encounter Summary ---
Author Organization [facility] [place] [address] Care Team Providers Care Software Development Test Engineer Name Role Phone Kaley Mike MD Primary Care Provider [phone] Encounter Details Date Type Department Care Team (Late st Contact Info) Description 12/17/2010 Orders [place] [address] Tata Swartz MD Social History Tobacco Use [...] on filedocumented in this encounter Care Teams Software Development Test Engineer Relationship Specialty Start Date End Date Kaley Mike MD [address] [place] [address] PCP - General 08/31/10 03/04/13 documented as of this encounter
--- OUTSIDE RECORDS SUMMARY | 2024-06-11 02:53 | XMS_ITS | Encounter Summary ---
[place] [address] Care Team Providers Care Batting Machine Operator Name Role Phone Kaley Mike MD Primary Care Provider [phone] Reason for Visit * Reason Onset Date Comments Prior Authorization 02/02/2013 Encounter Details Date Type Department Care Team (Late st Contact Info) Description 02/02/2013 Telephone [place] [phone] Faby Fritz MA Prior Authorization Social History [...] Telephone Encounter - Faby Quick CMA - 02/02/2013 2:07 PM EDT PA for omeprazole faxed to ins. documented in this encounter Plan of Treatment Not on file documented as of this encounter Visit Diagnoses Not on filedocumented in this encounter Care Teams Batting Machine Operator Relationship Specialty Start Date End Date Kaley Mike MD [address] [place] [address] PCP - General 4/15/11 10/17/13 documented as of this encounter
--- OUTSIDE RECORDS SUMMARY | 2024-06-11 02:53 | XMS_ITS | Encounter Summary ---
Author Organization Formerly [facility] Address [facility] [place] [address] Care Team Providers Care Demo Specialist Name Role Phone Kaley Mike MD Primary Care Provider [phone] Encounter Details Date Type Department Care Team (Late st Contact Info) Description 03/25/2011 4:30 PM EST [place] [phone] Tata Swartz MD Menetrier disease; Decreased libido; Dysuria; Menetrier's disease Discharge Disposition: Home Social History Tobacco [...] Sign Reading Time Taken Comments Blood Pressure 130/88 03/25/2011 4:29 PM EST Pulse - - Temperature - - Respiratory Rate - - Oxygen Saturation - - Inhaled Oxygen Concentration - - Weight 87.5 kg (193 lb) 03/25/2011 4:29 PM EST Height - - Body Mass Index 28.26 11/20/2010 9:18 AM EDT documented in this encounter Progress Notes * Karel Haque MD - 04/05/2011 4:14 PM EST The patient was seen and examined by Dr. wSartz. I have reviewed his history, physical, assessment and plan, and I agree with them as documented. * Tata Swartz MD - 03/25/2011 4:38 PM EST Gastroenterology and Hepatology Follow up Problem List: [...] ablation 2004 GERD Interval History Last seen 11/2009. Feeling fatigued and dizzy (occasionally) since starting octreotide. No weight loss. Good appetite. Continues octreotide once a month. Complains that after started Octreotide he has had fatigue, mild dizziness, decreased libido. He has occasional abdominal discomfort. The higher dose of Octreotide did not make a significant difference. ROS: No fever or chills. No chest pain or SOB No cough No dysuria or hematuria. No joint aches or swelling. No diarrhea, melena or BRBPR. Physical Exam: Weight 193 (today)<---192 (11/2010)<---186 <--175 (lb)<---166 (05/30) <----159 (on 05/24) BP 130/88 Wt 87.544 kg (193 lb) Thin male. NAD. PERRL, EOMI, anicteric. No oral lesions. RRR no M LUNGS: CTA Abdomen has normoactive BS. Soft, ND. no HSM. No LE edema. Pertinent lab/imaging/endoscopy workup to date: No new labs. 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 He has been doing well with Octreotide. His hypoalbuminemia resolved and his weight has increased since treatment was initiated. Octreotide dose increased last November when he reported having breakthrough symptoms at the end of 4 weeks. His symptoms improved a little, but he has experience side effects with the higher dose (fatigue, dizziness). He is having decreased libido, but this is not a known side effect of octreotide. - Will decrease dose of Octreotide to 10mg daily. - He would like to stop Octreotide after 1 year of treatment. He understand that there is very limited data regarding treatment of Menetrier's disease and duration. - he would like to stop treatment in the winter and monitor symptoms. Getting off treatment during the summer can impair his work if he develops significant symptoms - Will plan repeat EGD in May to assess for healing. - Surveillance Colonoscopy due 2013 for adenomatous polyps. - Check Albumin. Fatigue: Check CBC and TSH. Decreased Libido. - He is going to contact his pcp. - Will check testosterone level. Cam Swartz MD Fellow, [facility] [place] Gastroenterology and Hepatology Addendum: Called patient to discuss results. Left message on his cell phone informing him of normalblood work and encouraged him to call me back. CBC, BMP, LFT's normal. Normal albumin. TSH and testosterone normal. Cam Swartz MD Gastroenterology and Hepatology Fellow documented in this encounter Plan of Treatment Scheduled Orders Name Type Priority Associated Diagnoses Orde r Schedule CBC (with Diff) Lab Routine Menetrier disease Expected: 03/25/2011 (Approximate), Expires: 03/25/2011 Basic Metabolic Panel (non-fasting) Lab Routine Menetrier disease Expected: 03/25/2011 (Approximate), Expires: 03/25/2011 documented as of this encounter Procedures Procedure Name Priority Date/Time Associated Diagnosis Comments URINALYSIS WITH REFLEX CULTURE Routine 03/25/2011 5:17 PM EST Dysuria DIFFERENTIAL, AUTOMATED Routine 03/25/2011 5:10 PM EST CBC (WITH DIFF) Routine 03/25/2011 5:10 PM EST Menetrier's disease TSH Routine 03/25/2011 5:10 PM EST Decreased libido HEPATIC FUNCTION PANEL Routine 03/25/2011 5:10 PM EST Menetrier's disease BASIC METABOLIC PANEL Routine 03/25/2011 5:10 PM EST Menetrier's disease TESTOSTERONE, TOTAL AND FREE Routine 03/25/2011 5:02 PM EST documented in this encounter Results * (ABNORMAL) Urinalysis with microscopic (03/25/2011 5:17 PM EST) Glucose, Urine Dipstick Negative Negative mg/dL [facility] Protein, Urine Dipstick Trace(A) Neg mg/dL [facility] Bilirubin, Urine Dipstick Negative Negative mg/dL [facility] Urobilinogen, Urine Dipstick Normal mg/dL [facility] pH, Urn (dipstick) 5.5 5.0 - 8.0 [facility] Blood, Urine Dipstick Negative mg/dL [facility] Ketone, Urine Dipstick Negative mg/dL [facility] Nitrite, Urine Dipstick Negative [facility] Leukocytes, Urine Dipstick Negative mcL [facility] Appearance, Urine Dipstick Clear Clear [facility] Specific [place] Urine Automated 1.021 1.002 - 1.030 [facility] Color, Urine Dipstick Yellow Yellow [facility] RBC, Urine <1 0 - 3 /HPF [facility] WBC, Urine <1 0 - 3 /HPF [facility] Bacteria, Urine Rare(A) None /HPF [facility] Hyaline Casts, Urine 1 0 - 2 /LPF [facility] Urine specimen (specimen) 03/25/2011 5:17 PM EST 03/25/2011 5:27 PM EST L Nir Haque MD URINE ORDERABLES [facility] * DIFFERENTIAL, AUTOMATED (03/25/2011 5:10 PM EST) Neutrophil % 59.2 34.0 - 71.0 % [facility] Neutrophil Absolute 4.93 1.50 - 6.30 x10(3)/mcL [facility] Lymph % 31.3 19.0 - 53.0 % [facility] Lymphocytes Abs 2.6 1.0 - 3.6 x10(3)/mcL [facility] Monocyte % 7.3 4.0 - 13.0 % [facility] Monocyte Abs 0.6 0.2 - 1.0 x10(3)/mcL [facility] Eos % 1.6 0.0 - 7.0 % [facility] Eosinophils Abs 0.1 0.0 - 0.5 x10(3)/mcL [facility] Basophil % 0.2 0.0 - 2.0 % [facility] Baso Absolute 0.0 0.0 - 0.2 x10(3)/mcL [facility] Immature Gran % 0.40 0.00 - 0.66 % [facility] Comment: Immature granulocytes(IG's)percentage and absolute count will include metamyelocytes, myelocytes, and promyelocytes. Blood smears from CBCs yielding IG's will be scanned manually for concordance. If this scan disagrees with the automated IG or if promyelocytes are noted, a manual differential will be performed. Immature Gran Absolute 0.03 0.00 - 0.05 x10(3)/mcL [facility] Blood specimen (specimen) 03/25/2011 5:10 PM EST 03/25/2011 5:26 PM EST L Nir Haque MD HEMATOLOGY ORDERABLE S [facility] * Basic Metabolic Panel (non-fasting) (03/25/2011 5:10 [...] 5:10 PM EST 03/25/2011 5:26 PM EST Karel Haque MD CHEMISTRY ORDERABLES [facility] * [...] 5:10 PM EST 03/25/2011 5:26 PM EST Karel Haque MD HEMATOLOGY ORDERABLE S Performing Organization Address [facility] de Phone Number [facility] * Hepatic function panel (03/25/2011 5:10 PM [...] Haque MD CHEMISTRY ORDERABLES Performing Organization Address [facility] Co de Phone Number [facility] * TSH (03/25/2011 5:10 PM EST) Pathologist [facility] Thyroid Stimulating Hormone 2.67 0.27 - 4.20 mcIU/mL [facility] Blood specimen (specimen) 03/25/2011 5:10 PM EST 03/25/2011 5:26 PM EST Brien Goodson MD CHEMISTRY ORDERABLES Performing Organization Address [facility] Co de Phone Number [facility] * TESTOSTERONE, FREE, TOTAL (03/25/2011 5:02 PM EST) Testo Total 334 250 - 1100 ng/dL [facility] Testo Free (SEPTEMBER) 60.5 35.0 - 155.0 pg/mL [facility] Comment: Test Performed by Sherif Larry, [facility], [address] [place] [address] Ayaan Foster M.D., Ph.D., Director of Laboratories , [place] [id number] Blood specimen (specimen) 03/25/2011 5:02 PM EST 03/26/2011 9:32 AM EST Tata Swartz MD LAB SEND OUT ORDERAB LES Performing Organization Address City/State/[facility] Co de Phone Number [facility] documented in this encounter Visit Diagnoses Diagnosis Menetrier disease Gastric mucosal hypertrophy without mention of hemorrhage Decreased libido Dysuria 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
--- OUTSIDE RECORDS SUMMARY | 2024-06-11 02:53 | XMS_ITS | Encounter Summary ---
Author Organization [facility] Address [facility] [place] [address] Care Team Providers Care Potable Water Treatment Operator Name Role Phone Kaley Mike MD Primary Care Provider [phone] Reason for Visit * Reason Comments Fatigue Encounter Details Date Type Department Care Team (Late st Contact Info) Description 04/04/2011 10:00 AM EST Office [place] [phone] Saturnino Delgado MD [facility] [place] [address] Penile lesion (Primary Dx) Discharge Disposition: Home Social History [...] Sign Reading Time Taken Comments Blood Pressure 135/93 04/04/2011 10:13 AM EST Pulse 75 04/04/2011 10:13 AM EST Temperature - - Respiratory Rate - - Oxygen Saturation - - Inhaled Oxygen Concentration - - Weight - - Height - - Body Mass Index - - documented in this encounter Patient Instructions * Patient Instructions* Saturnino Delgado - 04/04/2011 10:53 AM EST - please have labs performed today - I will follow up with you about these results as soon as they are available - please follow up with me in 2-3 weeks regarding your symptoms - come back in earlier if things are worsening - use tylenol for pain in your lower back and hip pain documented in this encounter Progress Notes * Irma Michaels MD - 04/04/2011 10:48 AM EST The case was discussed at the time of the visit or immediately after the visit. The assessment and plan were formulated in discussion with me and I agree with them as documented. I have reviewed the history, physical exam, assessment and plan with the resident. Major issues discussed today: Mild dysuria,frequency, lower back pain, pigmented lesion on his penis Plan: Rpr, gc, chlamydia, hiv, urine, * Saturnino Delgado - 04/04/2011 10:25 AM EST Subjective: Patient ID: Froy Spain is a 36 y.o. male. 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 Notes burning when he attempts to urinate. He feels that he needs to strain to urinate. Notes burning when he urinates. Has not increased his water consumption. Denies any purulent discharge from the meatus. Notes 2 years ago he was promiscuous, heterosexual relationships. Unaware of any STD exposure. Also notes pain in his lower back, constant ache. Worse in the AM, notes morning stiffness about 10 min duration. Also notes pain within the R hip. No history of trauma. Also present over the past 2 months. Has not tried NSAIDs or APAP. No fevers, chills. No CP, SOB. No N/V/D. No bleeding. No rash, including the palms or soles of feet. 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 Genitourinary: Small area of flattened, hyperpigmentation area under the shaft, no pelvic LAD, no discharge, no vesicular lesions Musculoskeletal: Normal range of motion. He exhibits no edema and no tenderness. Palpation and ROM testing of R hip and lower spine yielded normal results Neurological: He is alert and oriented to person, place, and time. No cranial nerve deficit. Office Visit on 04/04/11 (from the past 24 hour(s)) HIV Component Value Range ??? HIV 1/2 Ab Negative URINALYSIS WITH MICROSCOPIC Component Value Range ??? Glucose UA Negative Negative (mg/dL) ??? Protein UA Negative (mg/dL) ??? Bilirubin UA Negative Negative (mg/dL) ??? Urobilinogen UA Normal (mg/dL) ??? pH UA 5.5 5.0 - 8.0 ??? Blood UA Negative (mg/dL) ??? Ketones UA Negative (mg/dL) ??? Nitrite UA Negative ??? Leukocytes UA Negative (mcL) ??? Appearance UA Clear Clear ??? Spec [place] UA 1.008 1.002 - 1.030 ??? Color UA Yellow Yellow ??? RBC UA Not Present 0 - 3 ? ? WBC UA <1 0 - 3 (/HPF) Assessment and Plan: 36 yo M w/ Meneteir's disease and a history of hbaq-uvqpvvdaw-lscao syndrome presenting for dysuriaand polyarticular arthralgias. His symptoms could be inter-related as I have concern for a possibleSTD contributing. He was seen previously; however, gonorrhea was not ruled out. Epididymitis and prostatitis are unlikely given the exam. His UA is not consistent with an infection . STD testing still in progress. I will be in touch with the pt regarding the results. I advised him to drink plenty of fluids and use tylenol for his arthralgias. I will see him back in a couple of weeks to follow up on his symptoms; although I may treat him empirically vs obtain further testing/imaging. documented in this encounter Plan of Treatment Not on file documented as of this encounter Procedures Procedure Name Priority Date/Time Associated Diagnosis Comments GC/CHLAM Routine 04/04/2011 11:29 AM EST URINALYSIS WITH REFLEX CULTURE Routine 04/04/2011 11:29 AM EST Penile lesion SYPHILIS ANTIBODY SCREEN WITH REFLEX Routine 04/04/2011 11:17 AM EST Penile lesion HIV SCREEN, 4TH GENERATION ([facility]/APD/NLH[place]PE RFORMABLE Routine 04/04/2011 11:17 AM EST Penile lesion GC/CHLAMYDIA Routine 04/04/2011 11:12 AM EST Penile lesion documented in this encounter Results * GC/CHLAM (04/04/2011 11:29 AM EST) GC Gene Amp Negative Negative [facility] Comment: The only FDA approved specimen types for this assay are cervix, vagina, urethra and urine. ??The sensitivity and specificity of the assay for other specimen types has not been determined. GC Source Urine [facility] Chlamydia Gene Amp Negative Negative [facility] Comment: The only FDA approved specimen types for this assay are cervix, vagina, urethra and urine. ??The sensitivity and specificity of the assay for other specimen types has not been determined. Chlm Source Urine [facility] Specimen of unknown material (specimen) 04/04/2011 11:29 AM EST 04/04/2011 11:55 AM EST Irma Michaels MD MICROBIOLOGY - [facility] ORDERABLES [facility] * Urinalysis with microscopic (04/04/2011 11:29 AM EST) Pathologist [facility] Glucose, Urine Dipstick Negative Negative mg/dL [facility] Protein, Urine Dipstick Negative mg/dL [facility] MILL[facility] Bilirubin, Urine Dipstick Negative Negative mg/dL [facility] Urobilinogen, Urine Dipstick Normal mg/dL [facility] pH, Urn (dipstick) 5.5 5.0 - 8.0 [facility] MILLENNIUM Blood, Urine Dipstick Negative mg/dL [facility] Ketone, Urine Dipstick Negative mg/dL [facility] Nitrite, Urine Dipstick Negative [facility] Leukocytes, Urine Dipstick Negative mcL [facility] Appearance, Urine Dipstick Clear Clear [facility] Specific [place] Urine Automated 1.008 1.002 - 1.030 [facility] Color, Urine Dipstick Yellow Yellow [facility] RBC, Urine Not Present 0 - 3 [facility] WBC, Urine <1 0 - 3 /HPF [facility] Urine specimen (specimen) 04/04/2011 11:29 AM EST 04/04/2011 11:46 AM EST Irma Michaels MD URINE ORDERABLES Performing Organization Address [facility] Co de Phone Number [facility] * Syphilis Antibody, IgG (04/04/2011 11:17 AM EST) Pathologist [facility] Syphilis IgG Negative Negative [facility] Blood specimen (specimen) 04/04/2011 11:17 AM EST 04/05/2011 6:51 AM EST Irma Michaels MD CHEMISTRY ORDERABLE S [facility] * HIV (04/04/2011 11:17 AM EST) Pathologist [facility] HIV 1/2 Ab Negative [facility] Blood specimen (specimen) 04/04/2011 11:17 AM EST 04/04/2011 11:24 AM EST Irma Michaels MD CHEMISTRY ORDERABLE S [facility] documented in this encounter Visit Diagnoses Diagnosis Penile lesion- Primary Other specified disorder of penis documented in this encounter Care Teams Potable Water Treatment Operator Relationship Specialty Start Date End Date Kaley Mike MD [address] [place] [address] PCP - General 08/31/10 03/04/13 documented as of this encounter
--- OUTSIDE RECORDS SUMMARY | 2024-06-11 02:53 | XMS_ITS | Encounter Summary ---
Author Organization [facility] [place] [address] Care Team Providers Care Photographer Apprentice Name Role Phone Kaley Mike MD Primary Care Provider [phone] Reason for Visit * Reason Onset Date Comments Results 04/01/2011 Encounter Details Date Type Department Care Team (Late st Contact Info) Description 04/01/2011 Telephone [place] [phone] Tata Swartz MD Results Social History Tobacco Use Types [...] encounter Miscellaneous Notes * Telephone Encounter - Tata Swartz MD - 04/01/2011 9:31 AM EST Called Mr. Spain to discuss the results of his blood tests. Left a message on his cell phone discussing normal labs, plan for EGD in May 2011. Encouraged him to call me with any questions or concerns. - CBC, BMP, LFTs (albumin), TSh and testosterone levels normal. - Plan EGD to reassess his gastric mucosa in early May as he would like to discontinue Octreotide then as we had planned almost a year ago. EGD will help us establish a baseline in case his symptoms worsen or Octreotide. Cam Swartz MD Gastroenterology and Hepatology Fellow documented in this encounter Plan of Treatment Not on file documented as of this encounter Visit Diagnoses Diagnosis Menetrier's disease- Primary Gastric mucosal hypertrophy without mention of hemorrhage documented in this encounter Care Teams Photographer Apprentice Relationship Specialty Start Date End Date Kaley Mike MD [address] [place] [address] PCP - General 08/31/10 03/04/13 documented as of this encounter
--- OUTSIDE RECORDS SUMMARY | 2024-06-11 02:53 | XMS_ITS | Encounter Summary ---
[place] [address] Care Team Providers Care Supervisor Mail Carriers Name Role Phone Kaley Mkie MD Primary Care Provider [phone] Reason for Visit * Reason Comments GI Problem Encounter Details Date Type Department Care Team (Latest Contact Info) Description 03/28/2011 3:00 PM EST Clinical [place] [phone] Maribell Yao RN GI problem (Primary Dx) Discharge Disposition: Home Social History [...] Progress Notes * Maribell Yao RN - 03/28/2011 3:33 PM EST Administered sandostatin LAR 10 mg (pt supplied) IM left gluteus per order of Dr Swartz. Exp 02/2013. Lot [id number] Tolerated well documented in this encounter Plan of Treatment Not on file documented as of this encounter Visit Diagnoses Diagnosis GI problem- Primary Other symptoms involving digestive system documented in this encounter Care Teams Supervisor Mail Carriers Relationship Specialty Start Date End Date Kaley Mike MD [address] [place] [address] PCP - General 08/31/10 03/04/13 documented as of this encounter
--- OUTSIDE RECORDS SUMMARY | 2024-06-11 02:53 | XMS_ITS | Encounter Summary ---
Author Organization [facility] Address [facility] [place] [address] Care Team Providers Care Brick Sorter Name Role Phone Kaley Mike MD Primary Care Provider [phone] Reason for Visit * Reason Comments Other ? uti Encounter Details Date Type Department Care Team (Late st Contact Info) Description 01/25/2011 4:00 PM EDT Office [place] [id number] Amanuel Wells MD UTI (lower urinary tract infection) (Primary Dx) Discharge Disposition: Home Social History [...] Sign Reading Time Taken Comments Blood Pressure 152/99 01/25/2011 3:29 PM EDT Pulse 78 01/25/2011 3:29 PM EDT Temperature - - Respiratory Rate - - Oxygen Saturation - - Inhaled Oxygen Concentration - - Weight - - Height - - Body Mass Index - - documented in this encounter Progress Notes * Darin Grey MD - 01/25/2011 4:20 PM EDT The case was discussed at the time of the visit or immediately after the visit. The assessment and plan were formulated in discussion with me and I agree with them as documented. I have reviewed the history, physical exam, assessment and plan with the resident. Major issues discussed today: 35 yo man here today for intermittent discomfort with urination, frequency, and he is concerned that sometimes his urine smells foul. He is concerned he might have a uti. Urine dip in the office negative and sent for UA. Intermittent dysuria. UTI seems very unlikely. Reports no std rfs, but it seems prudent to check for chlamydia - ua and culture - chlamydia pcr - education re bladder irritants - rtc for failure to improve * Amanuel Wells MD - 01/25/2011 4:15 PM EDT Subjective: Patient ID: Froy Clark is a 35 y.o. male. HPI 35 M presents to [facility] with concern for UTI. He reports occasional mild dysuria, smelling urine and frequency for 1-2 weeks. No fever, no pains. No sick symptoms, no joint pains, no skin rashes, no myalgia, no vision problems, no risk for STDs. Otherwise ROS foster negative. Review of Systems mild dysuria, smelling urine and frequency Objective: Physical Exam BP 152/99 Pulse 78 NAD ABD: soft, NTND, no suprapubic mass or tenderness Urine dip 2x normal Assessment and Plan: 35 M with UTI symptoms, however normal urine dip 2x. Will f/u u/a, ucx and chlamydia, before initiating any treatment. DD infection, stone, inflammation or irritant. Pt received handout with urinary tract irritants and instruction to drink >2L daily. I will callpt once tests back. No problem-specific visit notes found for this encounter. documented in this encounter Plan of Treatment Not on file documented as of this encounter Procedures Procedure Name Priority Date/Time Associated Diagnosis Comments CHLAMYDIA TRACHOMATIS Routine 01/25/2011 5:36 PM EDT CHLAMYDIA GENE AMP Routine 01/25/2011 4: 28 PM EDT UTI (lower urinary tract infection) URINE HOLD Routine 01/25/2011 4:00 PM EDT URINALYSIS WITH REFLEX CULTURE Routine 01/25/2011 4:00 PM EDT UTI (lower urinary tract infection) URINE CULTURE Routine 01/25/2011 4:00 PM EDT UTI (lower urinary tract infection) documented in this encounter Results * REFLEX LAB-CHLAMYDIA TRACHOMATIS (01/25/2011 5:36 PM EDT) Chlamydia Gene Amp Negative Negative [facility] Comment: The only FDA approved specimen types for this assay are cervix, vagina, urethra and urine. ??The sensitivity and specificity of the assay for other specimen types has not been determined. Chlm Source Urine [facility] Specimen of unknown material (specimen) 01/25/2011 5:36 PM EDT 01/25/2011 5:36 PM EDT Darin Grey MD MICROBIOLOGY - [facility] AL ORDERABLES Performing Organization Address [facility] de Phone Number [facility] * URINE HOLD (01/25/2011 4:00 PM EDT) Hold, Urine Sample in lab. [facility] Urine specimen (specimen) 01/25/2011 4:00 PM EDT 01/25/2011 6:00 PM EDT Darin Grey MD URINE ORDERABLES Performing Organization Address [facility] de Phone Number [facility] * Urinalysis with microscopic (01/25/2011 4:00 PM EDT) Glucose, Urine Dipstick Negative Negative mg/dL [facility] Protein, Urine Dipstick Negative mg/dL [facility] Bilirubin, Urine Dipstick Negative Negative mg/dL [facility] Urobilinogen, Urine Dipstick Normal mg/dL [facility] pH, Urn (dipstick) 5.5 5.0 - 8.0 [facility] Blood, Urine Dipstick Negative mg/dL [facility] Ketone, Urine Dipstick Negative mg/dL [facility] Nitrite, Urine Dipstick Negative [facility] Leukocytes, Urine Dipstick Negative mcL [facility] Appearance, Urine Dipstick Clear Clear [facility] Specific [place] Urine Automated 1.020 1.002 - 1.030 [facility] Color, Urine Dipstick Yellow Yellow [facility] RBC, Urine <1 0 - 3 /HPF [facility] WBC, Urine <1 0 - 3 /HPF [facility] Urine specimen (specimen) 01/25/2011 4:00 PM EDT 01/25/2011 4:45 PM EDT Darin Grey MD URINE ORDERABLES [facility] * Urine culture Clean Catch Urine (01/25/2011 4:00 PM EDT) Urine Culture ? Patient Name: FROY CLARK ?Ordered By: Darin GREY ? MR#: [id number] ?LOC: ??3M ? /Sex: ?? 3 (35 years), ? Male ? PROCEDURE: Urine Culture ?SOURCE: U CC ? COLLECTED: 01/25/2011 16:00 ? STARTED: 01/25/2011 17:36 ? FINAL REPORT ? Final Report ? Verified: 15:05 ? No growth (Less than 1,000 cfu/ml). ? ____ [facility] Urine specimen obtained by clean catch procedure (specimen) 01/25/2011 4:00 PM EDT 01/25/2011 5:36 PM EDT M Radha Grey MD MICROBIOLOGY - GENER AL ORDERABLES [facility] documented in this encounter Visit Diagnoses Diagnosis UTI (lower urinary tract infection)- Primary Urinary tract infection, site not specified documented in this encounter Care Teams Brick Sorter Relationship Specialty Start Date End Date Kaley Mike MD [address] [place] [address] PCP - General 08/31/10 03/04/13 documented as of this encounter
--- OUTSIDE RECORDS SUMMARY | 2024-06-11 02:53 | XMS_ITS | Encounter Summary ---
Author Organization [facility] Address [facility] [place] [address] Care Team Providers Care Chemical Laboratory Scientist Name Role Phone Kaley Mike MD Primary Care Provider [phone] Encounter Details Date Type Department Care Team (Late st Contact Info) Description 09/11/2012 4:00 PM EDT - 09/11/2012 5:00 PM EDT [place] [address] Karel Maddox MD [facility] [place] [address] UPPER GASTROINTESTINAL ENDOSCOPY,WITH BIOPSY SINGLE OR MULTIPLE (WRVU 2.39) Social History Tobacco Use Types [...] - 09/11/2012 5:18 PM EDT Please call [phone], before 5pm with problems, questions or concerns, after 5pm call the Hospital at [phone] and ask to speak to the Clinical Nutrition Manager patron attendant and the glue mounter operator will contactthat person for you. Discharge [...] * COLONOSCOPY: WHAT TO EXPECT AT HOME (BULGARIAN) * UPPER GI ENDOSCOPY: WHAT TO EXPECT AT HOME (BULGARIAN) documented in this encounter Medications at Time [...] ??? Skin lesion of face 709.9 ??? 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 [facility] ? Provider: ?? Karel MADDOX ?Pt. Name: ?? FROY CLARK ? Acc #: ?[id number] ?Pt. ? Col Date: ?? 09/11/2012 ? 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 B. Benign anorectal junctional mucosa with [...] Multiple, ranging from 0.2-0.3 cm. ?Tissue Description: [place] tissues. ?Sections/Processi ng: (T2) ? B- Labeled/Fixative: Mucosal biopsies-rectal polyps, formalin. ?Quantity/Size: Two, 0.1 and 0.2 cm. ?Tissue Description: [place] soft tissues. ?Sections/Processi ng: (T1) ??ejr ? ---Clinical Information--- ? Specimen Submitted: ? A - mucosal biopsies- stomach ? B - mucosal biopsies- rectal polyps ? Clinical History: ? [facility] ? Provider: ?? Karel MADDOX ?Pt. Name: ?? FROY CLARK ? Acc #: ?[id number] ?Pt. ? Col Date: ?? 09/11/2012 ? /Sex: ?1975,(37 years),Male ? Rec Date: ?? 09/11/2012 ? LOC: ?4T ? SURGICAL PATHOLOGY ? 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 history of colonic polyps ? Clinical Diagnosis: ? Same [facility] 09/11/2012 7:01 PM EDT L Nir Maddox MD PATHOLOGY/CYTOLOGY O [facility] Performing Organization Address [facility] de Phone Number [facility] * Specimen to Pathology (surgical or derm) (09/11/2012 5:40 PM EDT) AP Specimen 09/11/2012 5:40 PM EDT 09/11/2012 5:40 PM EDT Narrative [facility] - 09/11/2012 5:40 PM EDT Specimen requisition ordered. ??Separate Pathology report to follow L Nir Maddox MD PATHOLOGY/CYTOLOGY O [facility]IL[facility] Performing Organization Address [facility] de Phone Number [facility] * Specimen to Pathology (surgical or derm) (09/11/2012 5:40 PM EDT) AP Specimen 09/11/2012 5:40 PM EDT 09/11/2012 5:40 PM EDT Narrative [facility] - 09/11/2012 5:40 PM EDT Specimen requisition ordered. ??Separate Pathology report to follow L Nir Maddox MD PATHOLOGY/CYTOLOGY O [facility]ILA Performing Organization Address [facility] de Phone Number [facility] * UPPER GI ENDOSCOPY (09/11/2012 4:07 PM EDT) Pathologist [facility] UPPER GI ENDOSCOPY [facility] Endoscopy Patient Name: Froy Clark ? Procedure Date: 09/11/2012 4:07 PM ? Date of : 1975 ? Age: 37 ? Order #: [id number] ? Procedure: ? Upper GI endoscopy Indications: ? 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 L. Loyola Maddox, MD, Dilcia Cheng, ? RN, Avelina Barnes, Manager Philosophy, ? Tata Swartz MD Referring MD: ?Kaley [...] * COLONOSCOPY (09/11/2012 4:07 PM EDT) COLONOSCOPY [facility] Endoscopy ___ Patient Name: Froy Clark ? Procedure Date: 09/11/2012 4:07 PM ? Date of : 1975 ? Age: 37 ? Order #: [id number] ? ___ Procedure: ? Colonoscopy Indications: ? High risk colon cancer surveillance: ? Personal history of non-advanced ? adenoma Providers: ? L. Nir Maddox MD, Dilcia Cheng, ? GILDA, Avelina Barnes, Manager Philosophy, ? Tata Swartz MD Referring : ?Kaley [...] hemorrhage Colon polyps Benign neoplasm of colon Menetrier disease Gastric mucosal hypertrophy without mention of hemorrhage Colon polyps Benign neoplasm of colon documented in this encounter Administered Medications Inactive Administered Medications - up to 3 most recent administrations Medication Order MAR Action Action Date Dose Rate Site diphenhydrAMINE (BENADRYL) injection ONCE PRN, Starting on Fri09/11/12 at 1615, Until Fri09/11/12 at 2020, Itching, Intra-Operative (Intra-Procedure), Routine Given 09/11/2012 4:47 PM EDT 25 mg Given 09/11/2012 4:15 PM EDT 50 mg fentaNYL 50mcg/mL injection ONCE PRN, Starting on Fri09/11/12 at 1615, Until Fri09/11/12 at 2020, Pain, Intra-Operative (Intra-Procedure), Routine Given 09/11/2012 4:45 PM EDT 5 0 mcg Given 09/11/2012 4:37 PM EDT 50 mcg Given 09/11/2012 4:28 PM EDT 50 mcg lactated ringers infusion 100 mL/hr, Intravenous, CONTINUOUS, Starting on Fri09/11/12 at 1530, Until Fri09/11/12 at 2020, Endoscopy (Day of Procedure) New Bag 09/11/2012 3:30 PM EDT 100 mL/hr 100 mL/hr midazolam (VERSED) injection ONCE PRN, Starting on Fri09/11/12 at 1615, Until Fri09/11/12 at 2020, Sleep, Intra-Operative (Intra-Procedure), Routine Given 09/11/2012 4:37 PM EDT 0.5 mg Given 09/11/2012 4:28 PM EDT 0.5 mg Given 09/11/2012 4:21 PM EDT 1 mg documented in this encounter Active [...] RN) documented in this encounter Care Teams Chemical Laboratory Scientist Relationship Specialty Start Date End Date Kaley Mike MD [address] [place] [address] PCP - General 08/31/10 03/04/13 documented as of this encounter
--- OUTSIDE RECORDS SUMMARY | 2024-06-11 02:54 | XMS_ITS | Encounter Summary ---
Author Organization [facility] Address [address] [place] [address] Care Team Providers Care Shrub Grower Name Role Phone Jez Moisés Saloni LAST SORTER Primary Care Provider [phone] Encounter Details Date Type Department Care Team (Late st Contact Info) Description 05/20/2024 Lab Requisition [facility] Pathology & Laboratory Medicine - [address] [id number] Outr Resulting Lab, Provider Social History Tobacco Use Types Packs/Day Years Used Date Smoking Tobacco: Never Assessed Sex and Gender Information Value Date Recorded Sex Assigned at Not on file Legal Sex Male 18:45 EST Gender Identity Not on file Sexual Orientation Not on file documented as of this encounter Plan of Treatment Not on file documented as of this encounter Procedures Procedure Name Priority Date/Time Associated Diagnosis Comments PSA TOTAL, DIAGNOSTIC Routine 05/20/2024 9:43 EST documented in this encounter Results * (ABNORMAL) PSA, DIAGNOSTIC (05/20/2024 9:43 EST) PSA 7.8(H) <=3.5 ng/mL 05/20/2024 18:[address] [facility] Blood VENOUS BLOOD / Unknown 05/20/2024 9:43 EST 05/20/2024 17:[address] [facility] - 05/20/2024 18:25 EST NOTE: Serum PSA concentration should not be interpreted as absolute evidence for the presence or absence of malignant disease. Assayed on Siemens ADVIA [employer]. Ge[employer]aur XPT using chemiluminescent technology.??Values obtained by using different assay methods cannot be used interchangeably. us Provider Outr Resulting Lab CHEMISTRY & BLOOD GA S ORDERABLES Final Result [facility] [address] [place] [address] documented in this encounter Visit Diagnoses Not on filedocumented in this encounter Care Teams Shrub Grower Relationship Specialty Start Date End Date Moisés Story, PARISA PCP - General 03/25/15 documented as of this encounter
--- OUTSIDE RECORDS SUMMARY | 2024-06-11 02:54 | XMS_ITS | Encounter Summary ---
Author Organization [facility] [place] [address] Care Team Providers Care Business Support Specialist Name Role Phone Moisés Story APRN Primary Care Provider [phone] Encounter Details Date Type Department Care Team (Late st Contact Info) Description 05/23/2010 10:00 AM EST Procedure [place] [address] Ming Ware MD Social History Tobacco Use Types Packs/Day [...] filedocumented in this encounter Care Teams Business Support Specialist Relationship Specialty Start Date End Date Moisés Story APRN [address] [place], [place] [address] PCP - General 05/09/10 08/30/10 documented as of this encounter
--- OUTSIDE RECORDS SUMMARY | 2024-06-11 02:54 | XMS_ITS | Referral Summary ---
Author Organization [facility] Address [address] [place] [address] Care Team Providers Care Straw Hat Washer Operator Name Role Phone JezMoisés DIVISION COMMANDER Primary Care Provider [phone] Encounters Date Type Department Care Team Description 05/20/2024 Lab Requisition [facility] Pathology & Laboratory Medicine - [address] [address] Outr Resulting Lab, Provider from Last 3 Months Social History Tobacco Use Types Packs/Day Years Used Date Smoking Tobacco: Never Assessed Sex and Gender Information Value Date Recorded Sex Assigned at Not on file Legal Sex Male 18:45 EST Gender Identity Not on file Sexual Orientation Not on file Plan of Treatment Not on file Procedures Procedure Name Priority Date/Time Associated Diagnosis Comments PSA TOTAL, DIAGNOSTIC Routine 05/20/2024 9:43 EST HEPATITIS C AB W REFLEX TO HCV RNA BY PCR Routine 06/17/2022 9:21 EST from Last 3 Months or Most Recently Relevant to Health Maintenance Results * (ABNORMAL) PSA, DIAGNOSTIC (05/20/2024 9:43 EST) PSA 7.8(H) <=3.5 ng/mL 05/20/2024 18:25 EST [facility] Blood VENOUS BLOOD / Unknown 05/20/2024 9:43 EST 05/20/2024 17:20 EST Narrative [facility] - 05/20/2024 18:25 EST NOTE: Serum PSA concentration should not be interpreted as absolute evidence for the presence or absence of malignant disease. Assayed on Siemens ADVIA Centaur XPT using chemiluminescent technology.??Values obtained by using different assay methods cannot be used interchangeably. us Provider Outr Resulting Lab CHEMISTRY & BLOOD GA S ORDERABLES Final Result Performing Organization Address City/[facility]/ZIP Co de Phone Number [facility] [address] [place] [address] * HEPATITIS C AB W REFLEX TO HCV RNA BY PCR (06/17/2022 9:21 EST) Hep C Antibody Negative Negative 06/18/2022 10:24 EST [facility] Blood VENOUS BLOOD / Unknown 06/17/2022 9:21 EST 06/17/2022 22:41 EST us Provider Outr Resulting Lab CHEMISTRY & BLOOD GA S ORDERABLES Final Result Performing Organization Address [facility] Co de Phone Number [facility] [address] [place] [address] from Last 3 Months or Most Recently Relevant to Health Maintenance Care Teams Straw Hat Washer Operator Relationship Specialty Start Date End Date Moisés Story, DIVISION COMMANDER PCP - General 03/25/15
--- OUTSIDE RECORDS SUMMARY | 2024-06-11 02:54 | XMS_ITS | Encounter Summary ---
Author Organization [facility] Address [address] [place] [address] Care Team Providers Care Gill Box Operator Name Role Phone Jez Moisés Guallpa SOLAR SYSTEMS DESIGNER Primary Care Provider [phone] Encounter Details Date Type Department Care Team (Late st Contact Info) Description 06/17/2022 Lab Requisition [facility] Pathology & Laboratory Medicine - [address] [id number] Outr Resulting Lab, Provider Social History Tobacco [...] Procedure Name Priority Date/Time Associated Diagnosis Comments HEPATITIS C AB W REFLEX TO HCV RNA BY PCR Routine 06/17/2022 9:21 EST PSA TOTAL, DIAGNOSTIC Routine 06/17/2022 9:21 EST documented in this encounter Results * PSA TOTAL, DIAGNOSTIC (06/17/2022 9:21 EST) PSA 0.6 <=2.5 ng/mL 06/18/2022 10:09 EST [facility] Blood VENOUS BLOOD / Unknown 06/17/2022 9:21 EST 06/17/2022 22:41 EST Narrative [facility] - 06/18/2022 10:09 EST NOTE: Serum PSA concentration should not be interpreted as absolute evidence for the presence or absence of malignant disease. Assayed on Siemens [employer] NPC IIIaur XPT using chemiluminescent technology.??Values obtained by using different assay methods cannot be used interchangeably. us Provider Outr Resulting Lab CHEMISTRY & BLOOD GA S ORDERABLES Final Result Performing Organization Address City/[facility] Co de Phone Number [facility] [address] [place] [address] * HEPATITIS C AB W REFLEX TO HCV RNA BY PCR (06/17/2022 9:21 EST) Hep C Antibody Negative Negative 06/18/2022 10:24 EST [facility] Blood VENOUS BLOOD / Unknown 06/17/2022 9:21 EST 06/17/2022 22:41 EST Provider Outr Resulting Lab CHEMISTRY & BLOOD GA S ORDERABLES Final Result Performing Organization Address [facility] de Phone Number [facility] [address] [place] [address] documented in this encounter Visit Diagnoses Not on filedocumented in this encounter Care Teams Gill Box Operator Relationship Specialty Start Date End Date Moisés Story, PARISA PCP - General 03/25/15 documented as of this encounter
--- OUTSIDE RECORDS SUMMARY | 2024-06-11 02:54 | XMS_ITS | Encounter Summary ---
Author Organization [facility] Address [facility] [place] [address] Care Team Providers Care Diversity Intern Name Role Phone Jez Moisés MENDIOLA Primary Care Provider [phone] Encounter Details Date Type Department Care Team (Latest Contact Info) Description 05/19/2010 11:35 AM EST - 05/25/2010 3:32 PM EST Hospital Encounter [address] [place] [address] Nicolás Walters MD [facility] [place] [address] Ayaan Chamberlain MD [facility] [place] [address] [place] [address] Discharge Disposition: Home Social History Tobacco Use Types Packs/Day Years Used Date Smoking Tobacco: Never Assessed Sex and Gender Information Value Date Recorded Sex Assigned at Not on file Gender Identity Not on file Sexual Orientation Not on file documented as of this encounter Last Filed Vital Signs Vital Sign Reading Time Taken Comments Blood Pressure - - Pulse - - Temperature - - Respiratory Rate - - Oxygen Saturation - - Inhaled Oxygen Concentration - - Weight 82 kg (180 lb 12.4 oz) 05/19/2010 5:35 PM EST Simultaneous filing. User may not have seen previous data. Height - - Body Mass Index 25.84 06/20/2010 3:48 PM EST documented in this encounter Plan of Treatment Not on file documented as of this encounter Visit Diagnoses Not on filedocumented in this encounter Care Teams Diversity Intern Relationship Specialty Start Date End Date Moisés Story APRN [address] [place] [address] PCP - General 05/09/10 08/30/10 documented as of this encounter
--- OUTSIDE RECORDS SUMMARY | 2024-06-11 02:54 | XMS_ITS | Encounter Summary ---
Author Organization [facility] Address [address] [place] [address] Care Team Providers Care Bar Welder Name Role Phone Jez Moisés Guallpa DISASSEMBLER Primary Care Provider [phone] Encounter Details Date Type Department Care Team (Late st Contact Info) Description 06/17/2022 Lab Requisition [facility] Pathology & Laboratory Medicine - [address] [phone] Outr Resulting Lab, Provider Social History Tobacco [...] Procedure Name Priority Date/Time Associated Diagnosis Comments HIV 1/2 ANTIGEN AND ANTIBODY, 4TH GENERATION Routine 06/17/2022 9:21 EST documented in this encounter Results * HIV 1/2 ANTIGEN AND ANTIBODY, 4TH GENERATION (06/17/2022 9:21 EST) HIV 1 and 2 Antibody/p24 Antigen, 4th Generation Negative Negative 06/18/2022 10:35 EST [facility] Comment:If acute HIV-1 infec tion is suspected in a high risk patient, submit plasma specimen for HIV-1 RNA quantitation test. Blood VENOUS BLOOD / Unknown 06/17/2022 9:21 EST 06/17/2022 22:41 EST Narrative [facility] - 06/18/2022 10:35 EST Fourth Generation assay performed on the Siemens Macrocosmaur XPT. us Provider Outr Resulting Lab IMMUNOLOGY AND SEROL OGY ORDERABLES Final Result [facility] [address] [place] [address] documented in this encounter Visit Diagnoses Not on filedocumented in this encounter Care Teams Bar Welder Relationship Specialty Start Date End Date Moisés Story, PARISA PCP - General 03/25/15 documented as of this encounter
--- OUTSIDE RECORDS SUMMARY | 2024-06-11 02:54 | XMS_ITS | Encounter Summary ---
Author Organization [facility] [place] [address] Care Team Providers Care Hat Mender Name Role Phone Jez Moisés MAURY Primary Care Provider [phone] Encounter Details Date Type Department Care Team (Late st Contact Info) Description 06/20/2010 3:00 PM EST [place] [id number] Tata Swartz MD Discharge Disposition: Home Social History Tobacco [...] Procedure Name Priority Date/Time Associated Diagnosis Comments PROTEIN, TOTAL Routine 06/20/2010 2:03 PM EST ALBUMIN LEVEL Routine 06/20/2010 2:03 PM EST BASIC METABOLIC PANEL Routine 06/20/2010 2:03 PM EST documented in this encounter Results * ALBUMIN (06/20/2010 2:03 PM EST) Albumin 4.0 3.2 - 5.2 gm/dL [facility] Blood specimen (specimen) 06/20/2010 2:03 PM EST 06/20/2010 2:12 PM EST Tata Swartz MD CHEMISTRY ORDERABLES CERSIENNA DAVISENNIUM * (ABNORMAL) PROTEIN, TOTAL (06/20/2010 2:03 PM EST) Protein, Total 5.8(L) 6.4 - 8.3 gm/dL [facility] MILLENNIUM Blood specimen (specimen) 06/20/2010 2:03 PM EST 06/20/2010 2:12 PM EST Tata Swartz MD CHEMISTRY ORDERABLES CERSIENNA DAVISENNIUM * (ABNORMAL) BASIC METABOLIC PANEL (NON-FASTING) (06/20/2010 2:03 PM EST) Glucose 78 <=199 mg/dL CERNER MILLENNIUM Comment:Diabetes: >=200 mg/d L plus symptoms Blood Urea Nitrogen 18 10 - 20 mg/dL CERNER MILLENNIUM Creatinine 0.98 0.80 - 1.50 mg/dL CERNER MILLENNIUM Sodium 139 135 - 145 mmol/L CERNER MILLENNIUM Potassium 4.0 3.5 - 5.0 mmol/L CERNER MILLENNIUM Comment: Please note: ??Patients with WBC >100,000 may have falsely elevated Potassium levels. ??For accurate Potassium quantification in these patients send serum separator tube (gold top) for subsequent determinations. ??Contact the Clinical Chemistry Laboratory if there are any questions. Chloride 104 98 - 107 mmol/L CERNER MILLENNIUM Carbon Dioxide 32(H) 22 - 31 mmol/L CERNER MILLENNIUM Anion Gap 3(L) 5 - 15 mmol/L CERNER MILLENNIUM Calcium 8.5 8.5 - 10.5 mg/dL CERNER MILLENNIUM Est Glomerular Filtration Rate >60 >=60 CERNER MILLENNIUM Comment: The National Kidney Disease Education Program (NKDEP) has recommended all laboratories report estimated GFR (eGFR) along with plasma creatinine measurements to assist you with recognition of early kidney disease. Caveats: ??Plasma creatinine should be at steady-state (unchanged within the past week). ??Patient age > = 18 years, and for Americans multiply eGFR by 1.2. At present, NKDEP does NOT recommend using [...] disease. References: http://nkdep.nih.gov/resources/NKDEP_Suggestn4Labs_0606_508.pdf http://www.kidney.org/professionals/kls/pdf/faq_gfr.pdf Blood specimen (specimen) 06/20/2010 2:03 PM EST 06/20/2010 2:12 PM EST Tata Swartz MD CHEMISTRY ORDERABLES Performing Organization Address City/State/[facility] Co de Phone Number [facility] documented in this encounter Visit Diagnoses Not on filedocumented in this encounter Care Teams Hat Mender Relationship Specialty Start Date End Date Moisés Story APRN [address] [place] [address] PCP - General 05/09/10 08/30/10 documented as of this encounter
--- OUTSIDE RECORDS SUMMARY | 2024-06-11 02:54 | XMS_ITS | Encounter Summary ---
Author Organization [facility] Address [facility] [place] [address] Care Team Providers Care Hvac Sales Engineer Name Role Phone Jez Moisés MENDIOLA Primary Care Provider [phone] Encounter Details Date Type Department Care Team (Late st Contact Info) Description 05/19/2010 [place] [id number] Nicolás Walters MD [facility] [place] [address] Social History Tobacco Use Types Packs/Day Years Used Date Smoking Tobacco: Never Assessed Sex and Gender Information Value Date Recorded Sex Assigned at Not on file Gender Identity Not on file Sexual Orientation Not on file documented as of this encounter Plan of Treatment Not on file documented as of this encounter Procedures Procedure Name Priority Date/Time Associated Diagnosis Comments PROTEIN, TOTAL Routine 05/25/2010 7:25 AM EST PHOSPHORUS Routine 05/25/2010 7:25 AM EST MAGNESIUM Routine 05/25/2010 7:25 AM EST CALCIUM Routine 05/25/2010 7:25 AM EST ALBUMIN LEVEL Routine 05/25/2010 7:25 AM EST CARDIAC ENZYMES ([facility]) Routine 05/24/2010 6:15 PM EST HELICOBACTER PYLORI ANTIGEN STOOL Routine 05/24/2010 10:00 AM EST CARDIAC ENZYMES ([facility]) Routine 05/24/2010 9:55 AM EST CARDIAC ENZYMES ([facility]) Routine 05/24/2010 2:10 AM EST CREATININE Routine 05/24/2010 2:10 AM EST BUN Routine 05/24/2010 2:10 AM EST PHOSPHORUS Routine 05/24/2010 2:10 AM EST MAGNESIUM Routine 05/24/2010 2:10 AM EST GLUCOSE Routine 05/24/2010 2:10 AM EST CALCIUM Routine 05/24/2010 2:10 AM EST HEPATIC FUNCTION PANEL Routine 05/24/2010 2:10 AM EST ELECTROLYTES PANEL Routine 05/24/2010 2: 10 AM EST SURGICAL PATHOLOGY REPORT Routine 05/23/2010 3:56 PM EST DIFFERENTIAL, AUTOMATED Routine 05/23/2010 8:20 AM EST CREATININE Routine 05/23/2010 8:20 AM EST CBC (WITH DIFF) Routine 05/23/2010 8:20 AM EST BUN Routine 05/23/2010 8:20 AM EST PROTEIN, TOTAL Routine 05/23/2010 8:20 AM EST PHOSPHORUS Routine 05/23/2010 8:20 AM EST MAGNESIUM Routine 05/23/2010 8:20 AM EST GLUCOSE Routine 05/23/2010 8:20 AM EST CALCIUM Routine 05/23/2010 8:20 AM EST ALBUMIN LEVEL Routine 05/23/2010 8:20 AM EST ELECTROLYTES PANEL Routine 05/23/2010 8: 20 AM EST DIFFERENTIAL, AUTOMATED Routine 05/22/2010 7:51 AM EST CREATININE Routine 05/22/2010 7:51 AM EST CBC (WITH DIFF) Routine 05/22/2010 7:51 AM EST BUN Routine 05/22/2010 7:51 AM EST TRIGLYCERIDE Routine 05/22/2010 7:51 AM EST PHOSPHORUS Routine 05/22/2010 7:51 AM EST MAGNESIUM Routine 05/22/2010 7:51 AM EST GLUCOSE Routine 05/22/2010 7:51 AM EST CALCIUM Routine 05/22/2010 7:51 AM EST HEPATIC FUNCTION PANEL Routine 05/22/2010 7:51 AM EST ELECTROLYTES PANEL Routine 05/22/2010 7: 51 AM EST DIFFERENTIAL, AUTOMATED Routine 05/21/2010 6:55 AM EST CREATININE Routine 05/21/2010 6:55 AM EST CBC (WITH DIFF) Routine 05/21/2010 6:55 AM EST BUN Routine 05/21/2010 6:55 AM EST PHOSPHORUS Routine 05/21/2010 6:55 AM EST MAGNESIUM Routine 05/21/2010 6:55 AM EST CALCIUM Routine 05/21/2010 6:55 AM EST HEPATIC FUNCTION PANEL Routine 05/21/2010 6:55 AM EST ELECTROLYTES PANEL Routine 05/21/2010 6: 55 AM EST DIFFERENTIAL, AUTOMATED Routine 05/20/2010 6:42 AM EST CREATININE Routine 05/20/2010 6:42 AM EST APTT Routine 05/20/2010 6:42 AM EST PROTHROMBIN TIME Routine 05/20/2010 6:42 AM EST CBC (WITH DIFF) Routine 05/20/2010 6:42 AM EST BUN Routine 05/20/2010 6:42 AM EST PHOSPHORUS Routine 05/20/2010 6:42 AM EST MAGNESIUM Routine 05/20/2010 6:42 AM EST CALCIUM Routine 05/20/2010 6:42 AM EST HEPATIC FUNCTION PANEL Routine 05/20/2010 6:42 AM EST ELECTROLYTES PANEL Routine 05/20/2010 6: 42 AM EST FOLATE, RBC Routine 05/19/2010 5:50 PM EST FOLATE, SERUM Routine 05/19/2010 5:50 PM EST VITAMIN B12 Routine 05/19/2010 5:50 PM EST HEPATIC FUNCTION PANEL Routine 05/19/2010 5:50 PM EST DIFFERENTIAL, AUTOMATED STAT 05/19/2010 12:44 PM EST BLUE TUBE HOLD STAT 05/19/2010 12:44 PM EST CREATININE STAT 05/19/2010 12:44 PM EST CBC (WITH DIFF) STAT 05/19/2010 12:44 PM EST BUN STAT 05/19/2010 12:44 PM EST GLUCOSE STAT 05/19/2010 12:44 PM EST ELECTROLYTES PANEL STAT 05/19/2010 12 :44 PM EST documented in this encounter Results * (ABNORMAL) PROTEIN, TOTAL (05/25/2010 7:25 AM EST) Protein, Total 4.5(L) 6.4 - 8.3 gm/dL [facility] Blood specimen (specimen) 05/25/2010 7:25 AM EST 05/25/2010 7:42 AM EST Brien Houston MD CHEMISTRY ORDERABLES Performing Organization Address [facility] de Phone Number [facility] * PHOSPHORUS (05/25/2010 7:25 AM EST) Phosphorus 3.2 2.5 - 4.5 mg/dL [facility] Blood specimen (specimen) 05/25/2010 7:25 AM EST 05/25/2010 7:42 AM EST Brien Houston MD CHEMISTRY ORDERABLES Performing Organization Address [facility] de Phone Number [facility] * MAGNESIUM (05/25/2010 7:25 AM EST) Magnesium 0.86 0.69 - 1.07 mmol/L [facility] Blood specimen (specimen) 05/25/2010 7:25 AM EST 05/25/2010 7:42 AM EST Brien Houston MD CHEMISTRY ORDERABLES Performing Organization Address [facility]/ZIP Co de Phone Number [facility] * (ABNORMAL) CALCIUM (05/25/2010 7:25 AM EST) Calcium 8.1(L) 8.5 - 10.5 mg/dL [facility] Comment:result rechecked- dm c Blood specimen (specimen) 05/25/2010 7:25 AM EST 05/25/2010 7:42 AM EST Brien Houston MD CHEMISTRY ORDERABLES Performing Organization Address [facility] Co de Phone Number [facility] * (ABNORMAL) ALBUMIN (05/25/2010 7:25 AM EST) Pathologist [facility] Albumin 2.7(L) 3.2 - 5.2 gm/dL [facility] Blood specimen (specimen) 05/25/2010 7:25 AM EST 05/25/2010 7:42 AM EST Brien Houston MD CHEMISTRY ORDERABLES Performing Organization Address [facility] Co de Phone Number [facility] * CARDIAC ENZYME PANEL (05/24/2010 6:15 PM EST) Pathologist [facility] Troponin-T <0.03 <=0.03 ng/mL [facility] Comment: 0.03 ng/mL: ??Represents the 99th percentile upper reference limit for normals >0.03 ng/mL: ??Elevated cardiac troponin T level indicative of myocardial damage Diagnosis of acute, evolving or recent VT requires a typical rise and gradual fall of cTnT with at least ONE of the following: a) ??Ischemic symptoms b) ??Development of pathologic Q waves on the ECG c) ??ECG changes indicative of ischemia (S-T segment elevation/depression) d) ??Coronary artery intervention Serial bloods should be obtained for testing on admission, at 6-9h and again at 12-24h if earlier samples are negative and the clinical index of suspicion is high. Reference [Myocardial infarction redefined a consensus document of the Joint Society of Cardiology/[place] [employer] Committee for the redefinition of myocardial infarction. Journal of the [place] College [employer] 2000; 36: 959-969] Creatine Kinase 86 0 - 200 unit/L [facility] Blood specimen (specimen) 05/24/2010 6:15 PM EST 05/24/2010 6:37 PM EST Brien Houston MD CHEMISTRY ORDERABLES Performing Organization Address City/[facility]/ZIP Co de Phone Number [facility] * H. PYLORI ANTIGEN, STOOL (05/24/2010 10:00 AM EST) H pylori Antigen, Stool Negative Negative [facility] Comment: Test Performed by: [place] [address] Edge Roller: Masha Noguera, Ph.D. Stool specimen (specimen) 05/24/2010 10:00 AM EST 05/24/2010 2:39 PM EST Juli Benoit MD MICROBIOLOGY - GENER AL ORDERABLES Performing Organization Address [facility] Co de Phone Number [facility] * CARDIAC ENZYME PANEL (05/24/2010 9:55 AM EST) Troponin-T <0.03 <=0.03 ng/mL [facility] Comment: 0.03 ng/mL: ??Represents the 99th percentile upper reference limit for normals >0.03 ng/mL: ??Elevated cardiac troponin T level indicative of myocardial damage Diagnosis of acute, evolving or recent VT requires a typical rise and gradual fall of cTnT with at least ONE of the following: a) ??Ischemic symptoms b) ??Development of pathologic Q waves on the ECG c) ??ECG changes indicative of ischemia (S-T segment elevation/depression) d) ??Coronary artery intervention Serial bloods should be obtained for testing on admission, at 6-9h and again at 12-24h if earlier samples are negative and the clinical index of suspicion is high. Reference [Myocardial infarction redefined a consensus document of the Joint Society of Cardiology/[place] [employer] Committee for the redefinition of myocardial infarction. Journal of the [place] [employer]iology 2000; 36: 959-969] Creatine Kinase 81 0 - 200 unit/L [facility] Blood specimen (specimen) 05/24/2010 9:55 AM EST 05/24/2010 10:14 AM EST Brien Houston MD CHEMISTRY ORDERABLES Performing Organization Address [facility] Co de Phone Number [facility] * CREATININE, SERUM (05/24/2010 2:10 AM EST) Creatinine 0.95 0.80 - 1.50 mg/dL [facility] Est Glomerular Filtration Rate [...] disease. References: http://nkdep.nih.gov/resources/NKDEP_Suggestn4Labs_0606_508.pdf http://www.kidney.org/professionals/kls/pdf/faq_gfr.pdf Blood specimen (specimen) 05/24/2010 2:10 AM EST 05/24/2010 2:25 AM EST Brien Houston MD CHEMISTRY ORDERABLES Performing Organization Address [facility] Co de Phone Number [facility] * (ABNORMAL) BUN (05/24/2010 2:10 AM EST) Blood Urea Nitrogen 25(H) 10 - 20 mg/dL [facility] Blood specimen (specimen) 05/24/2010 2:10 AM EST 05/24/2010 2:25 AM EST Brien Houston MD CHEMISTRY ORDERABLES Performing Organization Address [facility] de Phone Number [facility] * (ABNORMAL) ELECTROLYTE PANEL (05/24/2010 2:10 AM EST) Sodium 138 135 - 145 mmol/L [facility] Potassium 4.5 3.5 - 5.0 mmol/L [facility] Comment: Please note: ??Patients with WBC >100,000 may have falsely elevated Potassium levels. ??For accurate Potassium quantification in these patients send serum separator tube (gold top) for subsequent determinations. ??Contact the Clinical Chemistry Laboratory if there are any questions. Chloride 108(H) 98 - 107 mmol/L [facility] Carbon Dioxide Not Perf 22 - 31 mmol/L [facility] Comment:Add-on request. Samp le too old to perform test. Anion Gap Not Calculated 5 - 15 mmol/L [facility] Blood specimen (specimen) 05/24/2010 2:10 AM EST 05/24/2010 2:25 AM EST Brien Houston MD CHEMISTRY ORDERABLES Performing Organization Address [facility] de Phone Number [facility] * PHOSPHORUS (05/24/2010 2:10 AM EST) Phosphorus 4.1 2.5 - 4.5 mg/dL [facility] Blood specimen (specimen) 05/24/2010 2:10 AM EST 05/24/2010 2:22 AM EST Brien Houston MD CHEMISTRY ORDERABLES Performing Organization Address City/[facility] Co de Phone Number [facility] * MAGNESIUM (05/24/2010 2:10 AM EST) Magnesium 0.83 0.69 - 1.07 mmol/L [facility] Blood specimen (specimen) 05/24/2010 2:10 AM EST 05/24/2010 2:22 AM EST Brien Houston MD CHEMISTRY ORDERABLES Performing Organization Address [facility] Phone Number [facility] * (ABNORMAL) CALCIUM (05/24/2010 2:10 AM EST) Calcium 7.3(L) 8.5 - 10.5 mg/dL [facility] Blood specimen (specimen) 05/24/2010 2:10 AM EST 05/24/2010 2:22 AM EST Brien Houston MD CHEMISTRY ORDERABLES Performing Organization Address [facility] Phone Number [facility] * GLUCOSE, RANDOM (05/24/2010 2:10 AM EST) Glucose 101 <=199 mg/dL [facility] Comment:Diabetes: >=200 mg/d L plus symptoms Blood specimen (specimen) 05/24/2010 2:10 AM EST 05/24/2010 2:22 AM EST Brien Houston MD CHEMISTRY ORDERABLES Performing Organization Address [facility] Phone Number [facility] * (ABNORMAL) HEPATIC FUNCTION PANEL (05/24/2010 2:10 AM EST) Protein, Total 4.0(L) 6.4 - 8.3 gm/dL [facility] Albumin 2.4(L) 3.2 - 5.2 gm/dL [facility] Aspartate Aminotransferase 76(H) 0 - 39 unit/L [facility] Comment:result rechecked-[facility] Alanine Aminotransferase 80(H) 0 - 55 unit/L [facility] Comment:result rechecked-[facility] Alkaline Phosphatase 45 40 - 120 unit/L [facility] Bilirubin, Total 0.2 0.2 - 1.3 mg/dL [facility] Bilirubin, Direct 0.1 0.0 - 0.3 mg/dL [facility] Blood specimen (specimen) 05/24/2010 2:10 AM EST 05/24/2010 2:22 AM EST Brien Houston MD CHEMISTRY ORDERABLES Performing Organization Address [facility] de Phone Number [facility] * CARDIAC ENZYME PANEL (05/24/2010 2:10 AM EST) Troponin-T <0.03 <=0.03 ng/mL [facility] Comment: 0.03 ng/mL: ??Represents the 99th percentile upper reference limit for normals >0.03 ng/mL: ??Elevated cardiac troponin T level indicative of myocardial damage Diagnosis of acute, evolving or recent VT requires a typical rise and gradual fall of cTnT with at least ONE of the following: a) ??Ischemic symptoms b) ??Development of pathologic Q waves on the ECG c) ??ECG changes indicative of ischemia (S-T segment elevation/depression) d) ??Coronary artery intervention Serial bloods should be obtained for testing on admission, at 6-9h and again at 12-24h if earlier samples are negative and the clinical index of suspicion is high. Reference [Myocardial infarction redefined a consensus document of the Joint Society of Cardiology/[place] [employer] Committee for the redefinition of myocardial infarction. Journal of the [place] College [employer] Cardiology 2000; 36: 959-969] Creatine Kinase 87 0 - 200 unit/L [facility] Blood specimen (specimen) 05/24/2010 2:10 AM EST 05/24/2010 2:22 AM EST Brien Houston MD CHEMISTRY ORDERABLES Performing Organization Address [facility] Co de Phone Number [facility] * PATHOLOGY SURGICAL PATHOLOGY FINAL REPORT (05/23/2010 3:56 PM EST) Surgical Pathology Report ? [facility] ? Provider: ?? MIRTA AARON ?? Pt. Name: ?? FROY CLARK ? Acc #: ?[id number] ?Pt. ? Col Date: ?? 05/23/2010 ?/Sex: ?1975,(35 years),Male ? Rec Date: ?? 05/23/2010 ?LOC: ?3EST ? SURGICAL PATHOLOGY ? ---Pathologic Diagnosis--- ? Stomach, body, biopsy: ? Gastric fundic gland mucosa with patchy full-thickness foveolar epithelium ? hyperplasia including dilated gastric pits (hyperplastic gastropathy)in the ? background of inflammed and mildly edematous lamina propria. In the area ? where gastric fundic glands remain, they are slightly atrophic with ? disproportionately thicker foveolar compartment. ? 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 (see Comment). ? CR-0 ? 05/25/10 ? AAS ? 05/25/10 Verified by: ? Josie Arrington MD ? Pathologist ? (Electronic Signature) ? The attending pathologist whose signature appears on this report has ? reviewed all diagnostic slides and has edited the gross and/or ? microscopic portion of the report in rendering the final pathologic ? diagnosis. ? ---Comment--- ? Although the histologic features resemble both juvenile and gastric ? hyperplastic polyps, juvenile polyp characteristically shows more expanded, ? inflammed and edematous lamina propria, with cystically dilated glands and ? with polyps arising in superficial mucosa rather than full thickness ? foveolar hyperplasia. Both juvenile and gastric hyperplastic polyps are ? polypoid lesions endoscopically rather than just thickening of gastric ? folds. SMAD4 mutation is often observed in patients with juvenile polyposis ? (SMAD4 expression is intact in this case). Therefore, in conjunction with ? clinical findings, the diagnosis of hyperplastic gastropathy in Menetrier ? disease is favored. ? ---Microscopic Description--- ? Immunohistochemistry Studies: ? Formalin-fixed, paraffin-embedded tissue sections are studied using the B- ? SA system technique with appropriate positive and negative controls. ??These ? IHC studies provide the pathologist with adjunctive diagnostic information. ? Antibody specificity has been verified by testing antibodies on a series of ? in-house tissues with known immunohistochemical performance ? characteristics. The clinical interpretation of any antibody positive ? staining or its absence is evaluated within the context of clinical ? [facility] ? Provider: ?? MIRTA AARON ?? Pt. Name: ?? FROY CLARK ? Acc #: ?[id number] ?Pt. ? Col Date: ?? 05/23/2010 ?/Sex: ?1975,(35 years),Male ? Rec Date: ?? 05/23/2010 ?LOC: ?3EST ? SURGICAL PATHOLOGY ? presentation, morphology, ??histopathological criteria and other diagnostic ? tests. ? Block ?Antibody ? Result (Positive/Negative) ? A1 ? H.pylori ? Negative ?CMV ?Negative ? A2 ? SMAD4 ?Positive, normal protein expression ? ---Gross Description--- ? Labeled/Fixative: ? Gastric bx gastric body, formalin. ? Qty/Size/Weight: ?Single, 1.5 x 0.5 x 0.5 cm. ? Tissue Description: ?? Brown, lobulated, congested, mucosal, ? polypoid lesion. ? Sections/Processing: ??The surgical margin is inked black. ??Serially ? sectioned. ??The ends are in (A1); the remainder ? in (A2). ??(T12) ??vms/SHB ? ---Clinical Information--- ? Specimen Submitted: ? A - Gastric bx, gastric body ? Clinical History: ? 35 Y/O w/nausea, vomiting, abd pain. ??Thickened fold, ? Menetrier's disease ? vs juv polyposis vs other infiltrative process. ? Clinical Diagnosis: ? Nausea [facility] 05/23/2010 3:56 PM EST Mirta Aaron MD PATHOLOGY/CYTOLOGY O RDERABLES [facility] * (ABNORMAL) PROTEIN, TOTAL (05/23/2010 8:20 AM EST) Protein, Total 4.2(L) 6.4 - 8.3 gm/dL [facility] Blood specimen (specimen) 05/23/2010 8:20 AM EST 05/23/2010 8:42 AM EST Brien Houston MD CHEMISTRY ORDERABLES Performing Organization Address [facility] Phone Number [facility] * (ABNORMAL) ALBUMIN (05/23/2010 8:20 AM EST) Albumin 2.4(L) 3.2 - 5.2 gm/dL [facility] Blood specimen (specimen) 05/23/2010 8:20 AM EST 05/23/2010 8:42 AM EST Brien Houston MD CHEMISTRY ORDERABLES Performing Organization Address [facility] Phone Number [facility] * PHOSPHORUS (05/23/2010 8:20 AM EST) Phosphorus 3.5 2.5 - 4.5 mg/dL [facility] Blood specimen (specimen) 05/23/2010 8:20 AM EST 05/23/2010 8:40 AM EST Brien Houston MD CHEMISTRY ORDERABLES Performing Organization Address [facility] Phone [facility] * MAGNESIUM (05/23/2010 8:20 AM EST) Magnesium 0.85 0.69 - 1.07 mmol/L [facility] Blood specimen (specimen) 05/23/2010 8:20 AM EST 05/23/2010 8:40 AM EST Brien Houston MD CHEMISTRY ORDERABLES Performing Organization Address [facility] Phone Number [facility] * ELECTROLYTE PANEL (05/23/2010 8:20 AM EST) Sodium 138 135 - 145 mmol/L [facility] Potassium 4.2 3.5 - 5.0 mmol/L [facility] Comment: Please note: ??Patients with WBC >100,000 may have falsely elevated Potassium levels. ??For accurate Potassium quantification in these patients send serum separator tube (gold top) for subsequent determinations. ??Contact the Clinical Chemistry Laboratory if there are any questions. Chloride 107 98 - 107 mmol/L [facility] Carbon Dioxide 26 22 - 31 mmol/L [facility] Anion Gap 5 5 - 15 mmol/L [facility] Blood specimen (specimen) 05/23/2010 8:20 AM EST 05/23/2010 8:40 AM EST Brien Houston MD CHEMISTRY ORDERABLES [facility] * (ABNORMAL) CREATININE, SERUM (05/23/2010 8:20 AM EST) Creatinine 0.77(L) 0.80 - 1.50 mg/dL [facility] Est Glomerular Filtration Rate [...] disease. References: http://nkdep.nih.gov/resources/NKDEP_Suggestn4Labs_0606_508.pdf http://www.kidney.org/professionals/kls/pdf/faq_gfr.pdf Blood specimen (specimen) 05/23/2010 8:20 AM EST 05/23/2010 8:40 AM EST Brien Houston MD CHEMISTRY ORDERABLES Performing Organization Address [facility] Phone Number [facility] * (ABNORMAL) CALCIUM (05/23/2010 8:20 AM EST) Calcium 7.1(L) 8.5 - 10.5 mg/dL [facility] Blood specimen (specimen) 05/23/2010 8:20 AM EST 05/23/2010 8:40 AM EST Brien Houston MD CHEMISTRY ORDERABLES Performing Organization Address [facility] Phone Number [facility] * (ABNORMAL) BUN (05/23/2010 8:20 AM EST) Blood Urea Nitrogen 22(H) 10 - 20 mg/dL [facility] Blood specimen (specimen) 05/23/2010 8:20 AM EST 05/23/2010 8:40 AM EST Brien Houston MD CHEMISTRY ORDERABLES Performing Organization Address [facility] Phone Number [facility] * GLUCOSE, RANDOM (05/23/2010 8:20 AM EST) Glucose 90 <=199 mg/dL [facility] Comment:Diabetes: >=200 mg/d L plus symptoms Blood specimen (specimen) 05/23/2010 8:20 AM EST 05/23/2010 8:40 AM EST Brien Houston MD CHEMISTRY ORDERABLES Performing Organization Address [facility] Phone Number [facility] * REFLEX LAB-A-DIFF (05/23/2010 8:20 AM EST) Neutrophil % 60.6 34.0 - 71.0 % [facility] Neutrophil Absolute 4.62 1.50 - 6.30 x10(3)/mcL [facility] Lymph % 27.9 19.0 - 53.0 % [facility] Lymphocytes Abs 2.1 1.0 - 3.6 x10(3)/mcL [facility] Monocyte % 6.9 4.0 - 13.0 % [facility] Monocyte Abs 0.5 0.2 - 1.0 x10(3)/mcL [facility] Eos % 3.8 0.0 - 7.0 % [facility] Eosinophils Abs 0.3 0.0 - 0.5 x10(3)/mcL [facility] Basophil % 0.5 0.0 - 2.0 % [facility] Baso Absolute 0.0 0.0 - 0.2 x10(3)/mcL [facility] Immature Gran % 0.30 0.00 - 0.66 % [facility] Comment: Immature granulocytes(IG's)percentage and absolute count will include metamyelocytes, myelocytes, and promyelocytes. Blood smears from CBCs yielding IG's will be scanned manually for concordance. If this scan disagrees with the automated IG or if promyelocytes are noted, a manual differential will be performed.v Immature Gran Absolute 0.02 0.00 - 0.05 x10(3)/mcL CERNER MILLENNIUM Blood specimen (specimen) 05/23/2010 8:20 AM EST 05/23/2010 8:40 AM EST Brien Houston MD HEMATOLOGY ORDERABLE S CERNER MILLENNIUM * (ABNORMAL) CBC (05/23/2010 8:20 AM EST) White Blood Cell 7.6 4.0 - 10.0 x10(3)/mc L CERNER MILLENNIUM Red Blood Cell 4.92 4.63 - 6.08 x10(6)/mc L CERNER MILLENNIUM Hemoglobin 15.8 13.7 - 17.5 gm/dL CERNER MILLENNIUM Hematocrit 45.5 40.0 - 51.0 % CERNER MILLENNIUM Mean Cell Volume 92.5(H) 79.0 - 92.0 fL CERNER MILLENNIUM Mean Cell Hemoglobin 32.1 25.6 - 32.2 pg CERNER MILLENNIUM Mean Cell Hemoglobin Concentration 34.7 32.0 - 36.5 gm/dL CERNER MILLENNIUM Platelet 206 145 - 370 x10(3)/mc L CERNER MILLENNIUM RDW Standard Deviation 43.3 35.0 - 46.0 fL CERNER MILLENNIUM RDW coefficient of variation 12.9 10.9 - 14.4 % CERNER MILLENNIUM Mean Platelet Volume 9.9 9.0 - 12.0 fL CERNER MILLENNIUM Blood specimen (specimen) 05/23/2010 8:20 AM EST 05/23/2010 8:40 AM EST Brien Houston MD HEMATOLOGY ORDERABLE S Performing Organization Address [facility] Phone Number [facility] FLORESI[facility] * PHOSPHORUS (05/22/2010 7:51 AM EST) Phosphorus 3.7 2.5 - 4.5 mg/dL [facility] RYANENNIUM Blood specimen (specimen) 05/22/2010 7:51 AM EST 05/22/2010 8:02 AM EST Brien Houston MD CHEMISTRY ORDERABLES Performing Organization Address [facility] Co de Phone Number [facility] MARKIUM * MAGNESIUM (05/22/2010 7:51 AM EST) Magnesium 0.92 0.69 - 1.07 mmol/L [facility] Blood specimen (specimen) 05/22/2010 7:51 AM EST 05/22/2010 8:02 AM EST Brien Houston MD CHEMISTRY ORDERABLES Performing Organization Address [facility] Co de Phone Number [facility] MARKIUM * (ABNORMAL) HEPATIC FUNCTION PANEL (05/22/2010 7:51 AM EST) Protein, Total 4.3(L) 6.4 - 8.3 gm/dL CERNER MILLENNIUM Albumin 2.5(L) 3.2 - 5.2 gm/dL CERNER MILLENNIUM Aspartate Aminotransferase 16 0 - 39 unit/L CERNER MILLENNIUM Alanine Aminotransferase 16 0 - 55 unit/L CERNER MILLENNIUM Alkaline Phosphatase 45 40 - 120 unit/L CERNER MILLENNIUM Bilirubin, Total 0.2 0.2 - 1.3 mg/dL CERNER MILLENNIUM Bilirubin, Direct 0.1 0.0 - 0.3 mg/dL CERNER MILLENNIUM Blood specimen (specimen) 05/22/2010 7:51 AM EST 05/22/2010 8:02 AM EST Brien Houston MD CHEMISTRY ORDERABLES Performing Organization Address [facility] de Phone Number CERSIENNA DAVISENNIUM * (ABNORMAL) ELECTROLYTE PANEL (05/22/2010 7:51 AM EST) Sodium 138 135 - 145 mmol/L CERNER MILLENNIUM Potassium 3.8 3.5 - 5.0 mmol/L CERNER MILLENNIUM Comment: Please note: ??Patients with WBC >100,000 may have falsely elevated Potassium levels. ??For accurate Potassium quantification in these patients send serum separator tube (gold top) for subsequent determinations. ??Contact the Clinical Chemistry Laboratory if there are any questions. Chloride 107 98 - 107 mmol/L CERNER MILLENNIUM Carbon Dioxide 27 22 - 31 mmol/L CERNER MILLENNIUM Anion Gap 4(L) 5 - 15 mmol/L CERNER MILLENNIUM Blood specimen (specimen) 05/22/2010 7:51 AM EST 05/22/2010 8:02 AM EST Brien Houston MD CHEMISTRY ORDERABLES Performing Organization Address [facility] Co de Phone Number CERSIENNA MILLENNIUM * CREATININE, SERUM (05/22/2010 7:51 AM EST) Creatinine 0.84 0.80 - 1.50 mg/dL CERNER MILLENNIUM Est Glomerular Filtration Rate [...] disease. References: http://nkdep.nih.gov/resources/NKDEP_Suggestn4Labs_0606_508.pdf http://www.kidney.org/professionals/kls/pdf/faq_gfr.pdf Blood specimen (specimen) 05/22/2010 7:51 AM EST 05/22/2010 8:02 AM EST Brien Houston MD CHEMISTRY ORDERABLES Performing Organization Address [facility] Co de Phone Number CymbetSIENNA [employer] * (ABNORMAL) CALCIUM (05/22/2010 7:51 AM EST) Calcium 7.3(L) 8.5 - 10.5 mg/dL [facility] Blood specimen (specimen) 05/22/2010 7:51 AM EST 05/22/2010 8:02 AM EST Brien Houston MD CHEMISTRY ORDERABLES Performing Organization Address [facility] Co de Phone Number [facility] [employer]UM * BUN (05/22/2010 7:51 AM EST) Blood Urea Nitrogen 15 10 - 20 mg/dL CERNER MILLENNIUM Blood specimen (specimen) 05/22/2010 7:51 AM EST 05/22/2010 8:02 AM EST Brien Houston MD CHEMISTRY ORDERABLES CERNER RYANENNIUM * GLUCOSE, RANDOM (05/22/2010 7:51 AM EST) Glucose 87 <=199 mg/dL CERNER MILLENNIUM Comment:Diabetes: >=200 mg/d L plus symptoms Blood specimen (specimen) 05/22/2010 7:51 AM EST 05/22/2010 8:02 AM EST Brien Houston MD CHEMISTRY ORDERABLES Performing Organization Address [facility] de Phone Number CERNER MILLENNIUM * (ABNORMAL) REFLEX LAB-A-DIFF (05/22/2010 7:51 AM EST) Neutrophil % 73.4(H) 34.0 - 71.0 % CERNER MILLENNIUM Neutrophil Absolute 9.77(H) 1.50 - 6.30 x10(3)/mc L CERNER MILLENNIUM Lymph % 18.1(L) 19.0 - 53.0 % CERNER MILLENNIUM Lymphocytes Abs 2.4 1.0 - 3.6 x10(3)/mc L CERNER MILLENNIUM Monocyte % 5.8 4.0 - 13.0 % CERNER MILLENNIUM Monocyte Abs 0.8 0.2 - 1.0 x10(3)/mc L CERNER MILLENNIUM Eos % 2.3 0.0 - 7.0 % CERNER MILLENNIUM Eosinophils Abs 0.3 0.0 - 0.5 x10(3)/mc L CERNER MILLENNIUM Basophil % 0.2 0.0 - 2.0 % CERNER MILLENNIUM Baso Absolute 0.0 0.0 - 0.2 x10(3)/mc L CERNER MILLENNIUM Immature Gran % 0.20 0.00 - 0.66 % CERNER MILLENNIUM Comment: Immature granulocytes(IG's)percentage and absolute count will include metamyelocytes, myelocytes, and promyelocytes. Blood smears from CBCs yielding IG's will be scanned manually for concordance. If this scan disagrees with the automated IG or if promyelocytes are noted, a manual differential will be performed.v Immature Gran Absolute 0.02 0.00 - 0.05 x10(3)/mc L CERNER MILLENNIUM Blood specimen (specimen) 05/22/2010 7:51 AM EST 05/22/2010 8:02 AM EST Brien Houston MD HEMATOLOGY ORDERABLE S Performing Organization Address City/[facility]/ZIP Co de Phone Number JH DAVISENNIUM * (ABNORMAL) CBC (05/22/2010 7:51 AM EST) White Blood Cell 13.3(H) 4.0 - 10.0 x10(3)/mc L CERNER MILLENNIUM Red Blood Cell 5.09 4.63 - 6.08 x10(6)/mc L CERNER MILLENNIUM Hemoglobin 16.2 13.7 - 17.5 gm/dL CERNER MILLENNIUM Hematocrit 46.8 40.0 - 51.0 % CERNER MILLENNIUM Mean Cell Volume 91.9 79.0 - 92.0 fL CERNER MILLENNIUM Mean Cell Hemoglobin 31.8 25.6 - 32.2 pg CERNER MILLENNIUM Mean Cell Hemoglobin Concentration 34.6 32.0 - 36.5 gm/dL CERNER MILLENNIUM Platelet 223 145 - 370 x10(3)/mc L CERNER MILLENNIUM RDW Standard Deviation 43.1 35.0 - 46.0 fL CERNER MILLENNIUM RDW coefficient of variation 12.8 10.9 - 14.4 % CERNER MILLENNIUM Mean Platelet Volume 9.6 9.0 - 12.0 fL CERNER MILLENNIUM Blood specimen (specimen) 05/22/2010 7:51 AM EST 05/22/2010 8:02 AM EST Brien Houston MD HEMATOLOGY ORDERABLE S CERSIENNA DAVISENNIUM * TRIGLYCERIDE (05/22/2010 7:51 AM EST) Triglyceride 146 <=149 mg/dL [facility] Comment: Reference Range: Normal triglycerides: ??<150 mg/dL Borderline high: ??150-199 mg/dL High: ??200-499 mg/dL Very high: ??>ck=648 mg/dL MISSY 2001; 285(60):[id number] Fasting? Not Indicated [facility] Fasting? Not Indicated [facility] MILLB[facility] Blood specimen (specimen) 05/22/2010 7:51 AM EST 05/22/2010 8:02 AM EST Brien Houston MD CHEMISTRY ORDERABLES Performing Organization Address [facility] Co de Phone Number [facility] * PHOSPHORUS (05/21/2010 6:55 AM EST) Phosphorus 3.5 2.5 - 4.5 mg/dL [facility] Blood specimen (specimen) 05/21/2010 6:55 AM EST 05/21/2010 7:12 AM EST Ayaan Chamberlain MD CHEMISTRY ORDERABLE S Performing Organization Address [facility] Co de Phone Number [facility] * MAGNESIUM (05/21/2010 6:55 AM EST) Magnesium 0.87 0.69 - 1.07 mmol/L [facility] Blood specimen (specimen) 05/21/2010 6:55 AM EST 05/21/2010 7:12 AM EST Ayaan Chamberlain MD CHEMISTRY ORDERABLE S Performing Organization Address [facility] Co de Phone Number [facility] * CREATININE, SERUM (05/21/2010 6:55 AM EST) Creatinine 0.99 0.80 - 1.50 mg/dL [facility] Est Glomerular Filtration Rate >60 >=60 [facility] Comment: The National Kidney Disease Education Program [...] disease. References: http://nkdep.nih.gov/resources/NKDEP_Suggestn4Labs_0606_508.pdf http://www.kidney.org/professionals/kls/pdf/faq_gfr.pdf Blood specimen (specimen) 05/21/2010 6:55 AM EST 05/21/2010 7:12 AM EST Ayaan Chamberlain MD CHEMISTRY ORDERABLE S Performing Organization Address [facility] de Phone Number [facility] [employer] * (ABNORMAL) CALCIUM (05/21/2010 6:55 AM EST) Calcium 7.4(L) 8.5 - 10.5 mg/dL [facility] Blood specimen (specimen) 05/21/2010 6:55 AM EST 05/21/2010 7:12 AM EST Ayaan Chamberalin MD CHEMISTRY ORDERABLE S Performing Organization Address [facility] Co de Phone Number [facility] [employer] * BUN (05/21/2010 6:55 AM EST) Blood Urea Nitrogen 12 10 - 20 mg/dL CERNER MILLENNIUM Blood specimen (specimen) 05/21/2010 6:55 AM EST 05/21/2010 7:12 AM EST Ayaan Chamberlain MD CHEMISTRY ORDERABLE S Performing Organization Address [facility] de Phone Number CERNER MILLENNIUM * (ABNORMAL) HEPATIC FUNCTION PANEL (05/21/2010 6:55 AM EST) Protein, Total 3.8(L) 6.4 - 8.3 gm/dL CERNER MILLENNIUM Albumin 2.3(L) 3.2 - 5.2 gm/dL CERNER MILLENNIUM Aspartate Aminotransferase 16 0 - 39 unit/L CERNER MILLENNIUM Alanine Aminotransferase 17 0 - 55 unit/L CERNER MILLENNIUM Alkaline Phosphatase 43 40 - 120 unit/L CERNER MILLENNIUM Bilirubin, Total 0.3 0.2 - 1.3 mg/dL CERNER MILLENNIUM Bilirubin, Direct 0.1 0.0 - 0.3 mg/dL CERNER MILLENNIUM Blood specimen (specimen) 05/21/2010 6:55 AM EST 05/21/2010 7:12 AM EST Ayaan Chamberlain MD CHEMISTRY ORDERABLE S Performing Organization Address [facility] Phone Number CERNER MILLENNIUM * (ABNORMAL) ELECTROLYTE PANEL (05/21/2010 6:55 AM EST) Sodium 140 135 - 145 mmol/L CERNER MILLENNIUM Potassium 3.9 3.5 - 5.0 mmol/L CERNER MILLENNIUM Comment: Please note: ??Patients with WBC >100,000 may have falsely elevated Potassium levels. ??For accurate Potassium quantification in these patients send serum separator tube (gold top) for subsequent determinations. ??Contact the Clinical Chemistry Laboratory if there are any questions. Chloride 109(H) 98 - 107 mmol/L CERNER MILLENNIUM Carbon Dioxide 28 22 - 31 mmol/L CERNER MILLENNIUM Anion Gap 3(L) 5 - 15 mmol/L CERNER MILLENNIUM Blood specimen (specimen) 05/21/2010 6:55 AM EST 05/21/2010 7:12 AM EST Ayaan Chamberlain MD CHEMISTRY ORDERABLE S CERNER RYANENNIUM * (ABNORMAL) REFLEX LAB-A-DIFF (05/21/2010 6:55 AM EST) Neutrophil % 67.5 34.0 - 71.0 % CERNER MILLENNIUM Neutrophil Absolute 8.66(H) 1.50 - 6.30 x10(3)/mc L CERNER MILLENNIUM Lymph % 20.5 19.0 - 53.0 % CERNER MILLENNIUM Lymphocytes Abs 2.6 1.0 - 3.6 x10(3)/mc L CERNER MILLENNIUM Monocyte % 8.0 4.0 - 13.0 % CERNER MILLENNIUM Monocyte Abs 1.0 0.2 - 1.0 x10(3)/mc L CERNER MILLENNIUM Eos % 3.3 0.0 - 7.0 % CERNER MILLENNIUM Eosinophils Abs 0.4 0.0 - 0.5 x10(3)/mc L CERNER MILLENNIUM Basophil % 0.5 0.0 - 2.0 % CERNER MILLENNIUM Baso Absolute 0.1 0.0 - 0.2 x10(3)/mc L CERNER MILLENNIUM Immature Gran % 0.20 0.00 - 0.66 % CERNER MILLENNIUM Comment: Immature granulocytes(IG's)percentage and absolute count will include metamyelocytes, myelocytes, and promyelocytes. Blood smears from CBCs yielding IG's will be scanned manually for concordance. If this scan disagrees with the automated IG or if promyelocytes are noted, a manual differential will be performed.v Immature Gran Absolute 0.03 0.00 - 0.05 x10(3)/mc L CERNER MILLENNIUM Blood specimen (specimen) 05/21/2010 6:55 AM EST 05/21/2010 7:12 AM EST Ayaan Chamberlain MD HEMATOLOGY ORDERABL ES CERSIENNA DAVISENNIUM * (ABNORMAL) CBC (05/21/2010 6:55 AM EST) White Blood Cell 12.9(H) 4.0 - 10.0 x10(3)/mc L CERNER MILLENNIUM Red Blood Cell 4.89 4.63 - 6.08 x10(6)/mc L CERNER MILLENNIUM Hemoglobin 15.5 13.7 - 17.5 gm/dL CERNER MILLENNIUM Hematocrit 45.2 40.0 - 51.0 % CERNER MILLENNIUM Mean Cell Volume 92.4(H) 79.0 - 92.0 fL CERNER MILLENNIUM Mean Cell Hemoglobin 31.7 25.6 - 32.2 pg CERNER MILLENNIUM Mean Cell Hemoglobin Concentration 34.3 32.0 - 36.5 gm/dL CERNER MILLENNIUM Platelet 218 145 - 370 x10(3)/mc L CERNER MILLENNIUM RDW Standard Deviation 43.7 35.0 - 46.0 fL CERNER MILLENNIUM RDW coefficient of variation 12.9 10.9 - 14.4 % CERNER MILLENNIUM Mean Platelet Volume 9.6 9.0 - 12.0 fL CERNER MILLENNIUM Blood specimen (specimen) 05/21/2010 6:55 AM EST 05/21/2010 7:12 AM EST Ayaan Chamberlain MD HEMATOLOGY ORDERABL ES [facility] * REFLEX LAB-A-DIFF (05/20/2010 6:42 AM EST) Neutrophil % 57.1 34.0 - 71.0 % CERNER MILLENNIUM Neutrophil Absolute 5.01 1.50 - 6.30 x10(3)/mcL CERNER MILLENNIUM Lymph % 28.1 19.0 - 53.0 % CERNER MILLENNIUM Lymphocytes Abs 2.5 1.0 - 3.6 x10(3)/mcL CERNER MILLENNIUM Monocyte % 9.9 4.0 - 13.0 % CERNER MILLENNIUM Monocyte Abs 0.9 0.2 - 1.0 x10(3)/mcL CERNER MILLENNIUM Eos % 4.1 0.0 - 7.0 % CERNER MILLENNIUM Eosinophils Abs 0.4 0.0 - 0.5 x10(3)/mcL CERNER MILLENNIUM Basophil % 0.6 0.0 - 2.0 % CERNER MILLENNIUM Baso Absolute 0.1 0.0 - 0.2 x10(3)/mcL CERNER MILLENNIUM Immature Gran % 0.20 0.00 - 0.66 % CERNER MILLENNIUM Comment: Immature granulocytes(IG's)percentage and absolute count will include metamyelocytes, myelocytes, and promyelocytes. Blood smears from CBCs yielding IG's will be scanned manually for concordance. If this scan disagrees with the automated IG or if promyelocytes are noted, a manual differential will be performed.v Immature Gran Absolute 0.02 0.00 - 0.05 x10(3)/mcL CERNER MILLENNIUM Blood specimen (specimen) 05/20/2010 6:42 AM EST 05/20/2010 6:49 AM EST Ayaan Chamberlain MD HEMATOLOGY ORDERABL ES [facility] RYANENNIUM * CBC (05/20/2010 6:42 AM EST) White Blood Cell 8.8 4.0 - 10.0 x10(3)/mcL CERNER MILLENNIUM Red Blood Cell 4.85 4.63 - 6.08 x10(6)/mcL CERNER MILLENNIUM Hemoglobin 15.4 13.7 - 17.5 gm/dL CERNER MILLENNIUM Hematocrit 44.4 40.0 - 51.0 % CERNER MILLENNIUM Mean Cell Volume 91.5 79.0 - 92.0 fL CERNER MILLENNIUM Mean Cell Hemoglobin 31.8 25.6 - 32.2 pg CERNER MILLENNIUM Mean Cell Hemoglobin Concentration 34.7 32.0 - 36.5 gm/dL CERNER MILLENNIUM Platelet 215 145 - 370 x10(3)/mcL CERNER MILLENNIUM RDW Standard Deviation 43.5 35.0 - 46.0 fL CERNER MILLENNIUM RDW coefficient of variation 13.0 10.9 - 14.4 % CERNER MILLENNIUM Mean Platelet Volume 9.2 9.0 - 12.0 fL CERNER MILLENNIUM Blood specimen (specimen) 05/20/2010 6:42 AM EST 05/20/2010 6:49 AM EST Ayaan Chamberlain MD HEMATOLOGY ORDERABL ES [facility] MARKI[facility] * PHOSPHORUS (05/20/2010 6:42 AM EST) Phosphorus 3.3 2.5 - 4.5 mg/dL [facility] MILLENNIUM Blood specimen (specimen) 05/20/2010 6:42 AM EST 05/20/2010 6:49 AM EST Ayaan Chamberlain MD CHEMISTRY ORDERABLE S [facility] RYANENNIUM * MAGNESIUM (05/20/2010 6:42 AM EST) Magnesium 0.97 0.69 - 1.07 mmol/L [facility] MILLENNIUM Blood specimen (specimen) 05/20/2010 6:42 AM EST 05/20/2010 6:49 AM EST Ayaan Chamberlain MD CHEMISTRY ORDERABLE S Performing Organization Address City/State/[facility] Co de Phone Number [facility] MARKIUM * CREATININE, SERUM (05/20/2010 6:42 AM EST) Creatinine 0.88 0.80 - 1.50 mg/dL CERNER MILLENNIUM Est Glomerular Filtration Rate [...] disease. References: http://nkdep.nih.gov/resources/NKDEP_Suggestn4Labs_0606_508.pdf http://www.kidney.org/professionals/kls/pdf/faq_gfr.pdf Blood specimen (specimen) 05/20/2010 6:42 AM EST 05/20/2010 6:49 AM EST Ayaan Chamberlain MD CHEMISTRY ORDERABLE S Performing Organization Address [facility] de Phone Number CymbetSIENNA CinnamonENNIUM * (ABNORMAL) CALCIUM (05/20/2010 6:42 AM EST) Calcium 7.3(L) 8.5 - 10.5 mg/dL CERNER MILLENNIUM Blood specimen (specimen) 05/20/2010 6:42 AM EST 05/20/2010 6:49 AM EST Ayaan Chamberlain MD CHEMISTRY ORDERABLE S Performing Organization Address [facility] de Phone Number CERSIENNA CinnamonENNIUM * BUN (05/20/2010 6:42 AM EST) Blood Urea Nitrogen 11 10 - 20 mg/dL CERNER MILLENNIUM Blood specimen (specimen) 05/20/2010 6:42 AM EST 05/20/2010 6:49 AM EST Ayaan Chamberlain MD CHEMISTRY ORDERABLE S Performing Organization Address [facility] Co de Phone Number CERSIENNA CinnamonENNIUM * (ABNORMAL) HEPATIC FUNCTION PANEL (05/20/2010 6:42 AM EST) Protein, Total 3.6(L) 6.4 - 8.3 gm/dL CERNER MILLENNIUM Albumin 2.2(L) 3.2 - 5.2 gm/dL CERNER MILLENNIUM Aspartate Aminotransferase 18 0 - 39 unit/L CERNER MILLENNIUM Alanine Aminotransferase 22 0 - 55 unit/L CERNER MILLENNIUM Alkaline Phosphatase 42 40 - 120 unit/L CERNER MILLENNIUM Bilirubin, Total 0.3 0.2 - 1.3 mg/dL CERNER MILLENNIUM Bilirubin, Direct 0.1 0.0 - 0.3 mg/dL CERNER MILLENNIUM Blood specimen (specimen) 05/20/2010 6:42 AM EST 05/20/2010 6:49 AM EST Ayaan Chamberlain MD CHEMISTRY ORDERABLE S Performing Organization Address [facility] Phone Number CERNER MILLENNIUM * (ABNORMAL) ELECTROLYTE PANEL (05/20/2010 6:42 AM EST) Pathologist [facility] Sodium 138 135 - 145 mmol/L CERNER MILLENNIUM Potassium 3.9 3.5 - 5.0 mmol/L CERNER MILLENNIUM Comment: Please note: ??Patients with WBC >100,000 may have falsely elevated Potassium levels. ??For accurate Potassium quantification in these patients send serum separator tube (gold top) for subsequent determinations. ??Contact the Clinical Chemistry Laboratory if there are any questions. Chloride 109(H) 98 - 107 mmol/L CERNER MILLENNIUM Carbon Dioxide 25 22 - 31 mmol/L CERNER MILLENNIUM Anion Gap 4(L) 5 - 15 mmol/L CERNER MILLENNIUM Blood specimen (specimen) 05/20/2010 6:42 AM EST 05/20/2010 6:49 AM EST Ayaan Chamberlain MD CHEMISTRY ORDERABLE S Performing Organization Address [facility] de Phone Number [facility] RYNAENNIUM * APTT (05/20/2010 6:42 AM EST) Partial Thromboplastin Time 30 25 - 37 sec [facility] Comment: Recommended therapeutic PTT range for full dose unfractionated heparin is 80-114 seconds. Blood specimen (specimen) 05/20/2010 6:42 AM EST 05/20/2010 6:49 AM EST Ayaan Chamberlain MD HEMATOLOGY ORDERABL ES Performing Organization Address [facility] Phone Number [facility] * PROTIME-INR (05/20/2010 6:42 AM EST) Prothrombin Time 14.0 12.3 - 14.7 sec [facility] Comment: [facility] Transfusion Committee Guidelines: INR less than 2.0, PTT less than OR equal to 43.5 seconds, or Fibrinogen greater than or equal to 100 mg/dl indicate adequate procoagulant activity for hemostasis in patients without underlying bleeding disorders. International Normalization Ratio 1.1 0.9 - 1.1 [facility] Blood specimen (specimen) 05/20/2010 6:42 AM EST 05/20/2010 6:49 AM EST Ayaan Chamberlain MD HEMATOLOGY ORDERABL ES Performing Organization Address [facility] Phone Number [facility] * FOLATE (05/19/2010 5:50 PM EST) Folate 8.1 7.4 - 35.0 ng/mL [facility] Blood specimen (specimen) 05/19/2010 5:50 PM EST 05/19/2010 6:08 PM EST Ayaan Chamberlain MD CHEMISTRY ORDERABLE S Performing Organization Address [facility] Phone Number [facility] * VITAMIN B12 (05/19/2010 5:50 PM EST) Vitamin B12 408 207 - 974 pg/mL [facility] Blood specimen (specimen) 05/19/2010 5:50 PM EST 05/19/2010 6:08 PM EST Ayaan Chamberlain MD CHEMISTRY ORDERABLE S Performing Organization Address [facility] Co de Phone Number CERNER MILLENNIUM * (ABNORMAL) HEPATIC FUNCTION PANEL (05/19/2010 5:50 PM EST) Protein, Total 3.6(L) 6.4 - 8.3 gm/dL CERNER MILLENNIUM Albumin 2.1(L) 3.2 - 5.2 gm/dL [facility] MILLENNIUM Aspartate Aminotransferase 20 0 - 39 unit/L [facility]ERN[facility] MILLENNIUM Alanine Aminotransferase 24 0 - 55 unit/L [facility] MILLENNIUM Alkaline Phosphatase 43 40 - 120 unit/L CERNER MILLENNIUM Bilirubin, Total 0.3 0.2 - 1.3 mg/dL [facility]ERN[facility] MILLENNIUM Bilirubin, Direct 0.1 0.0 - 0.3 mg/dL [facility] MILLENNIUM Blood specimen (specimen) 05/19/2010 5:50 PM EST 05/19/2010 6:08 PM EST Ayaan Chamberlain MD CHEMISTRY ORDERABLE S Performing Organization Address [facility] de Phone Number CERNER MILLENNIUM * FOLATE RBC (05/19/2010 5:50 PM EST) Hematocrit 44.8 40.0 - 51.0 % CERNER MILLENNIUM RBC Folate 650 460 - 1500 ng/mL [facility] MILLENNIUM Blood specimen (specimen) 05/19/2010 5:50 PM EST 05/19/2010 6:08 PM EST Ayaan Chamberlain MD CHEMISTRY ORDERABLE S Performing Organization Address [facility] Co de Phone Number CERNER MILLENNIUM * (ABNORMAL) ELECTROLYTE PANEL (05/19/2010 12:44 PM EST) Sodium 137 135 - 145 mmol/L [facility]ERN[facility] MILLENNIUM Potassium 3.3(L) 3.5 - 5.0 mmol/L [facility] MILLENNIUM Comment: [...] - 31 mmol/L [facility] MILLENNIUM Anion Gap 5 5 - 15 mmol/L [facility] MILLEN[facility] Blood specimen (specimen) 05/19/2010 12:44 PM EST 05/19/2010 12:53 PM EST Nicolás Walters MD CHEMISTRY ORDERABLES [facility]ER MILLENNIUM * CREATININE, SERUM (05/19/2010 12:44 PM EST) Creatinine 1.01 0.80 - 1.50 mg/dL CERNER MILLENNIUM Est Glomerular Filtration Rate [...] disease. References: http://nkdep.nih.gov/resources/NKDEP_Suggestn4Labs_0606_508.pdf http://www.kidney.org/professionals/kls/pdf/faq_gfr.pdf Blood specimen (specimen) 05/19/2010 12:44 PM EST 05/19/2010 12:53 PM EST Nicolás Walters MD CHEMISTRY ORDERABLES Performing Organization Address [facility] [facility] Co de Phone Number JH FLORESIUM * BUN (05/19/2010 12:44 PM EST) Blood Urea Nitrogen 12 10 - 20 mg/dL CERSIENNA FLORESIUM Blood specimen (specimen) 05/19/2010 12:44 PM EST 05/19/2010 12:53 PM EST Nicolás Walters MD CHEMISTRY ORDERABLES Performing Organization Address [facility] de Phone Number JH FLORESIUM * GLUCOSE, RANDOM (05/19/2010 12:44 PM EST) Glucose 87 <=199 mg/dL JH DAVISENNIUM Comment:Diabetes: >=200 mg/d L plus symptoms Blood specimen (specimen) 05/19/2010 12:44 PM EST 05/19/2010 12:53 PM EST Nicolás Walters MD CHEMISTRY ORDERABLES Performing Organization Address [facility] de Phone Number JH FLORESIUM * (ABNORMAL) REFLEX LAB-A-DIFF (05/19/2010 12:44 PM EST) Neutrophil % 66.7 34.0 - 71.0 % CERNER MILLENNIUM Neutrophil Absolute 7.75(H) 1.50 - 6.30 x10(3)/mc L CERNER MILLENNIUM Lymph % 22.0 19.0 - 53.0 % CERNER MILLENNIUM Lymphocytes Abs 2.6 1.0 - 3.6 x10(3)/mc L CERNER MILLENNIUM Monocyte % 7.7 4.0 - 13.0 % CERNER MILLENNIUM Monocyte Abs 0.9 0.2 - 1.0 x10(3)/mc L CERNER MILLENNIUM Eos % 3.0 0.0 - 7.0 % CERNER MILLENNIUM Eosinophils Abs 0.4 0.0 - 0.5 x10(3)/mc L CERNER MILLENNIUM Basophil % 0.4 0.0 - 2.0 % CERNER MILLENNIUM Baso Absolute 0.1 0.0 - 0.2 x10(3)/mc L CERNER MILLENNIUM Immature Gran % 0.20 0.00 - 0.66 % CERNER MILLENNIUM Comment: Immature granulocytes(IG's)percentage and absolute count will include metamyelocytes, myelocytes, and promyelocytes. Blood smears from CBCs yielding IG's will be scanned manually for concordance. If this scan disagrees with the automated IG or if promyelocytes are noted, a manual differential will be performed.v Immature Gran Absolute 0.02 0.00 - 0.05 x10(3)/mc L CERNER MILLENNIUM Blood specimen (specimen) 05/19/2010 12:44 PM EST 05/19/2010 12:53 PM EST Nicolás Walters MD HEMATOLOGY ORDERABLE S CERNER MILLENNIUM * (ABNORMAL) CBC (05/19/2010 12:44 PM EST) White Blood Cell 11.6(H) 4.0 - 10.0 x10(3)/mc L CERNER MILLENNIUM Red Blood Cell 5.40 4.63 - 6.08 x10(6)/mc L CERNER MILLENNIUM Hemoglobin 17.9(H) 13.7 - 17.5 gm/dL CERNER MILLENNIUM Hematocrit 49.5 40.0 - 51.0 % CERNER MILLENNIUM Mean Cell Volume 91.7 79.0 - 92.0 fL CERNER MILLENNIUM Mean Cell Hemoglobin 33.1(H) 25.6 - 32.2 pg CERNER MILLENNIUM Mean Cell Hemoglobin Concentration 36.2 32.0 - 36.5 gm/dL CERNER MILLENNIUM Platelet 250 145 - 370 x10(3)/mc L CERNER MILLENNIUM RDW Standard Deviation 43.2 35.0 - 46.0 fL CERNER MILLENNIUM RDW coefficient of variation 13.1 10.9 - 14.4 % CERNER MILLENNIUM Mean Platelet Volume 9.6 9.0 - 12.0 fL CERNER MILLENNIUM Blood specimen (specimen) 05/19/2010 12:44 PM EST 05/19/2010 12:53 PM EST Nicolás Walters MD HEMATOLOGY ORDERABLE S Performing Organization Address City/State/[facility] Co de Phone Number JH MOJICA * BLUE HOLD (05/19/2010 12:44 PM EST) Blue Hold Complete CERSIENNA DAVISENNIUM Blood specimen (specimen) 05/19/2010 12:44 PM EST 05/19/2010 12:54 PM EST Nicolás Walters MD HEMATOLOGY ORDERABLE S Performing Organization Address City/[facility] Co de Phone Number JH MOJICA documented in this encounter Visit Diagnoses Not on filedocumented in this encounter Care Teams Hvac Sales Engineer Relationship Specialty Start Date End Date Moisés Story APRN [address] [place] [address] PCP - General 05/09/10 08/30/10 documented as of this encounter
--- OUTSIDE RECORDS SUMMARY | 2024-06-11 02:54 | XMS_ITS | Encounter Summary ---
Author Organization [facility] Address [address] [place] [address] Care Team Providers Care Mat Cleaning Machine Operator Name Role Phone Jez Moisés Saloni RN PROCEDURE Primary Care Provider [phone] Encounter Details Date Type Department Care Team (Late st Contact Info) Description 07/02/2019 Lab Requisition [facility] Pathology & Laboratory Medicine - [address] [address] Unknown, Provider, MD Social History Tobacco Use Types Packs/Day [...] Associated Diagnosis Comments PSA TOTAL, DIAGNOSTIC Routine 07/01/2019 16:32 EST documented in this encounter Results * PSA TOTAL, DIAGNOSTIC (07/01/2019 16:32 EST) PSA 0.4 0.0 - 2.5 ng/mL 07/05/2019 11:24 EST [facility] Blood VENOUS BLOOD / Unknown 07/01/2019 16:32 EST 07/02/2019 16:47 EST Narrative [facility] - 07/05/2019 11:24 EST NOTE: Serum PSA concentration should not be interpreted as absolute evidence for the presence or absence of malignant disease. Assayed on Siemens ADVIA Centaur XPT using chemiluminescent technology.??Values obtained by using different assay methods cannot be used interchangeably. us Provider Unknown CHEMISTRY & BLOOD GAS ORDERA BLES Final Result [facility] [address] [place] [address] documented in this encounter Visit Diagnoses Not on filedocumented in this encounter Care Teams Mat Cleaning Machine Operator Relationship Specialty Start Date End Date Moisés Story, RN PROCEDURE PCP - General 03/25/15 documented as of this encounter
--- OUTSIDE RECORDS SUMMARY | 2024-06-11 02:54 | XMS_ITS | Encounter Summary ---
Author Organization [facility] [place] [address] Care Team Providers Care Concrete Pourer Name Role Phone Moisés Story APRN Primary Care Provider [phone] Encounter Details Date Type Department Care Team (Late st Contact Info) Description 07/18/2010 4:00 PM EST [place] [phone] Tata Swartz MD Discharge Disposition: Home Social [...] on filedocumented in this encounter Care Teams Concrete Pourer Relationship Specialty Start Date End Date Moisés Story APRN [address] [place], [place] [address] PCP - General 05/09/10 08/30/10 documented as of this encounter
--- OUTSIDE RECORDS SUMMARY | 2024-06-11 02:54 | XMS_ITS | Clinical Summary ---
Author Organization [facility] Address [address] [place] [address] Care Team Providers Care Grappler Name Role Phone Jez Moisés Saloni UNIT CLERK Primary Care Provider Encounters Date Type Department Care Team Description 05/20/2024 Lab Requisition [facility] Pathology & Laboratory Medicine - [address] [address] Outr Resulting Lab, Provider from Last 3 Months Social History Tobacco Use Types Packs/Day Years Used Date Smoking Tobacco: Never Assessed Sex and Gender Information Value Date Recorded Sex Assigned at Not on file Legal Sex Male 18:45 EST Gender Identity Not on file Sexual Orientation Not on file Plan of Treatment Health Maintenance Due Date Last Done Comments Hepatitis B Vaccine (1 of 3 - 19+ 3-dose series) 03/10 COVID-19 Vaccine ( season) 2024 Hepatitis C Screen Completed 06/17/2022 Procedures Procedure Name Priority Date/Time Associated Diagnosis Comments PSA TOTAL, DIAGNOSTIC Routine 05/20/2024 9:43 EST HEPATITIS C AB W REFLEX TO HCV RNA BY PCR Routine 06/17/2022 9:21 EST from Last 3 Months or Most Recently Relevant to Health Maintenance Results * (ABNORMAL) PSA, DIAGNOSTIC (05/20/2024 9:43 EST) PSA 7.8(H) <=3.5 ng/mL 05/20/2024 18:[address] [facility] Blood VENOUS BLOOD / Unknown 05/20/2024 9:43 EST 05/20/2024 17:20 EST Narrative [facility] - 05/20/2024 18:25 EST NOTE: Serum PSA concentration should not be interpreted as absolute evidence for the presence or absence of malignant disease. Assayed on Siemens ADVIA Glazeonaur XPT using chemiluminescent technology.??Values obtained by using different assay methods cannot be used interchangeably. us Provider Outr Resulting Lab CHEMISTRY & BLOOD GA S ORDERABLES Final Result Performing Organization Address City/[facility]/ZIP Co de Phone Number [facility] [address] [place], [place] [address] * HEPATITIS C AB W REFLEX TO HCV RNA BY PCR (06/17/2022 9:21 EST) Hep C Antibody Negative Negative 06/18/2022 10:[address] [facility] Blood VENOUS BLOOD / Unknown 06/17/2022 9:21 EST 06/17/2022 22:41 EST us Provider Outr Resulting Lab CHEMISTRY & BLOOD GA S ORDERABLES Final Result Performing Organization Address City/[facility]/ZIP Co de Phone Number [facility] [address] [place] [address] from Last 3 Months or Most Recently Relevant to Health Maintenance Care Teams Grappler Relationship Specialty Start Date End Date Moisés Story, PARISA PCP - General 03/25/15
--- OUTSIDE RECORDS SUMMARY | 2024-06-11 02:54 | XMS_ITS | Encounter Summary ---
[place] [address] Care Team Providers Care Manager Cafe Name Role Phone Moisés Story APRN Primary Care Provider Encounter Details Date Type Department Care Team (Latest Contact Info) Description 07/02/2010 10:00 AM EST Clinical [place] [address] Maribell Yao, pediatric physical therapy assistant Disposition: Home Social History Tobacco Use Types [...] filedocumented in this encounter Care Teams Manager Cafe Relationship Specialty Start Date End Date Moisés Story APRN [address] [place] [address] PCP - General 05/09/10 08/30/10 documented as of this encounter
--- OUTSIDE RECORDS SUMMARY | 2024-06-11 02:54 | XMS_ITS | Encounter Summary ---
Author Organization [facility] Address [address] [place] [address] Care Team Providers Care Registered Vascular Technologist (Rvt) Name Role Phone Jez Moisés Saloni VOLLEYBALL REFEREE Primary Care Provider [phone] Encounter Details Date Type Department Care Team (Late st Contact Info) Description 07/01/2020 Lab Requisition [facility] Pathology & Laboratory Medicine - [address] [phone] Outr Resulting Lab, Provider Social History Tobacco [...] Associated Diagnosis Comments PSA TOTAL, DIAGNOSTIC Routine 06/30/2020 16:48 EST documented in this encounter Results * PSA TOTAL, DIAGNOSTIC (06/30/2020 16:48 EST) PSA 0.7 0.0 - 2.5 ng/mL 07/03/2020 9:19 EST [facility] Blood VENOUS BLOOD / Unknown 06/30/2020 16:48 EST 07/02/2020 16:30 EST Narrative [facility] - 07/03/2020 9:19 EST NOTE: Serum PSA concentration should not be interpreted as absolute evidence for the presence or absence of malignant disease. Assayed on Siemens ADVIA Right90aur XPT using chemiluminescent technology.??Values obtained by using different assay methods cannot be used interchangeably. us Provider Outr Resulting Lab CHEMISTRY & BLOOD GA S ORDERABLES Final Result [facility] [address] [place] [address] documented in this encounter Visit Diagnoses Not on filedocumented in this encounter Care Teams Registered Vascular Technologist (Rvt) Relationship Specialty Start Date End Date Moisés Story, VOLLEYBALL REFEREE PCP - General 03/25/15 documented as of this encounter
--- OUTSIDE RECORDS SUMMARY | 2024-06-11 02:54 | XMS_ITS | Encounter Summary ---
Author Organization [facility] [address] Care Team Providers Care Washer And Crusher Tender Name Role Phone Moisés Story APRN Primary Care Provider [phone] Encounter Details Date Type Department Care Team (Latest Contact Info) Description 07/30/2010 3:45 PM EDT Clinical [place] [phone] Maribell Yao, production control scheduler Disposition: Home Social History Tobacco Use Types [...] on filedocumented in this encounter Care Teams Washer And Crusher Tender Relationship Specialty Start Date End Date Moisés Story APRN [address] [place] [address] PCP - General 05/09/10 08/30/10 documented as of this encounter
--- OUTSIDE RECORDS SUMMARY | 2024-06-11 02:54 | XMS_ITS | Encounter Summary ---
Author Organization [facility] Address [address] [place] [address] Care Team Providers Care Heel Breaster Name Role Phone Jez Moisés Guallpa ASSOCIATE PROFESSOR OF LIBRARY SCIENCE Primary Care Provider [phone] Encounter Details Date Type Department Care Team (Late st Contact Info) Description 11/27/2019 Lab Requisition [facility] Pathology & Laboratory Medicine - [address] [phone] Outr Resulting Lab, Provider Social History Tobacco [...] Procedure Name Priority Date/Time Associated Diagnosis Comments CHLAMYDIA/N. GONORRHOEAE AMPLIFIED NUCLEIC ACID Routine 11/26/2019 20:37 EDT documented in this encounter Results * CHLAMYDIA/N. GONORRHOEAE AMPLIFIED RNA (11/26/2019 20:37 EDT) Neisseria gonorrhoeae Result Negative Negative 11/29/2019 15:27 EDT [facility] Chlamydia trachomatis Result Negative Negative 11/29/2019 15:27 EDT [facility] Urine URINE / Unknown 11/26/2019 2 0:37 EDT 11/28/2019 20:22 EDT us Provider Outr Resulting Lab MICROBIOLOGY - GENER AL ORDERABLES Final Result [facility] [address] [place] [address] documented in this encounter Visit Diagnoses Not on filedocumented in this encounter Care Teams Heel Breaster Relationship Specialty Start Date End Date Moisés Story, PARISA PCP - General 03/25/15 documented as of this encounter
--- OUTSIDE RECORDS SUMMARY | 2024-06-11 02:54 | XMS_ITS | Encounter Summary ---
Author Organization [facility] [place] [address] Care Team Providers Care Cupboard Builder Name Role Phone Moisés Story APRN Primary Care Provider Encounter Details Date Type Department Care Team (Late st Contact Info) Description 05/09/2010 1:30 PM EST Procedure [place] [phone] Brien García MD Social History Tobacco Use Types Packs/Day Years Used Date Smoking Tobacco: Never Assessed Sex and Gender Information Value Date Recorded Sex Assigned at Not on file Gender Identity Not on file Sexual Orientation Not on file documented as of this encounter Plan of Treatment Not on file documented as of this encounter Visit Diagnoses Not on filedocumented in this encounter Care Teams Cupboard Builder Relationship Specialty Start Date End Date Moisés Story APRN [address] [place] [address] PCP - General 05/09/10 08/30/10 documented as of this encounter
--- OUTSIDE RECORDS SUMMARY | 2024-06-11 02:54 | XMS_ITS | Encounter Summary ---
Author Organization [facility] Address [facility] [place] [address] Care Team Providers Care Ratings Analyst Name Role Phone None Primary Care Provider Unavailabl e Encounter Details Date Type Department Care Team (Late st Contact Info) Description 05/08/2010 Orders Only Gastroenterology at [facility] [place] [address] Brien García MD Social History Tobacco Use [...] Associated Diagnosis Comments SURGICAL PATHOLOGY REPORT Routine 05/09/2010 4:50 PM EST documented in this encounter Results * Surgical Pathology Report (05/09/2010 4:50 PM EST) Surgical Pathology Report [id number] ? Location: [facility]; [facility]; A The signing pathologist has (i) examined the relevant preparation(s) for the specimen(s) and (ii) rendered or confirmed the diagnosis(es). . ?Pathology Addendum Report Addendum Discussion An immunostain for CMV is negative (performed on blocks B1 and B2). 05/23/10 VMS 05/23/10 Verified by: ? Coco HEATH, Cecil ?Pathologist ?(Electronic Signature) The attending pathologist whose signature appears on this report has reviewed all diagnostic slides and has edited the gross and/or microscopic portion of the report in rendering the final pathologic diagnosis. ?Pathology Surgical Pathology Final Report Clinical Information Specimen Submitted: A - Small intestine, duodenum B - Stomach, random Clinical History: Jar 1 small bowel ? celiac vs amyloid Jar 2 stomach severe diffuse gastritis with raised nodules ? amyloid vs lymphoma vs acute H. pylori vs severe alcoholic gastritis vs Menetrier disease - please stain with Congo red as well. Clinical Diagnosis: N/V Gross Description A - Labeled/Fixativ e: Small intestine duodenum, formalin. Qty/Size/Weight : ?Four, averaging 0.2 x 0.1 cm. Tissue Description: ?? Soft, torres-ayala tissues. Sections/Proces sing: ??(T1) B - Labeled/Fixativ e: Stomach random, formalin. Qty/Size/Weight : ?Multiple, averaging 0.2 cm in diameter. Tissue Description: ?? Soft, torres tissues. Sections/Proces sing: ??(T2) ??vms/PPS Microscopic Description Slides reviewed, microscopic description not recorded. Diagnosis Endoscopic biopsies - A. Duodenal mucosa within normal limits, including preserved villous architecture. B. Benign gastric mucosa with florid foveolar hyperplasia including dilated glands and lamina propria edema, consistent with Menetrier disease. Negative for H. pylori (Thiazine stain). No evidence of lymphoma. Congo red stain is negative for amyloid. . Diagnosis CR-0 05/10/10 AAS 05/10/10 Verified by: ? Josie Arrington MD ?Pathologist ?(Electronic Signature) The attending pathologist whose signature appears on this report has reviewed all diagnostic slides and has edited the gross and/or microscopic portion of the report in rendering the final pathologic diagnosis. [facility] 05/09/2010 4:50 PM EST Brien García MD PATHOLOGY/CYTOLOGY O RDERABLES [facility] documented in this encounter Visit Diagnoses Not on filedocumented in this encounter Care Teams Ratings Analyst Relationship Specialty Start Date End Date None None PCP - General 07/27/14 documented as of this encounter
--- OUTSIDE RECORDS SUMMARY | 2024-06-11 02:54 | XMS_ITS | Encounter Summary ---
Author Organization [facility] Address [facility] [place] [address] Care Team Providers Care Boom Truck Driver Name Role Phone Jze Moisés MENDIOLA Primary Care Provider [phone] Encounter Details Date Type Department Care Team (Latest Contact Info) Description 07/30/2010 3:18 PM EDT - 07/30/2010 11:59 PM EDT Hospital [place] [phone] Karel Haque MD [facility] [place] [address] Discharge Disposition: Home Social History Tobacco Use [...] injection 10 MG = 1 Kit(s), IM, [id number] 07/30/2010 11/20/2010 documented as of this encounter Plan of Treatment Not on file documented as of this encounter Procedures Procedure Name Priority Date/Time Associated Diagnosis Comments HEPATIC FUNCTION PANEL Routine 07/30/2010 3:23 PM EDT documented in this encounter Results * HEPATIC FUNCTION PANEL (07/30/2010 3:23 PM EDT) Protein, Total 6.6 6.4 - 8.3 gm/dL CERNER MILLENNIUM Albumin 4.5 3.2 - 5.2 gm/dL CERNER MILLENNIUM Aspartate Aminotransferase 30 0 - 39 unit/L CERNER MILLENNIUM Alanine Aminotransferase 27 0 - 55 unit/L CERNER MILLENNIUM Alkaline Phosphatase 67 40 - 120 unit/L CERNER MILLENNIUM Bilirubin, Total 0.3 0.2 - 1.3 mg/dL CERNER MILLENNIUM Bilirubin, Direct 0.1 0.0 - 0.3 mg/dL CERNER MILLENNIUM Blood specimen (specimen) 07/30/2010 3:23 PM EDT 07/30/2010 3:46 PM EDT Tata Swartz MD CHEMISTRY ORDERABLES CERNER MILLENNIUM documented in this encounter Visit Diagnoses Not on filedocumented in this encounter Care Teams Boom Truck Driver Relationship Specialty Start Date End Date Moisés Story APRN [address] [place] [address] PCP - General 05/09/10 08/30/10 documented as of this encounter
--- OUTSIDE RECORDS SUMMARY | 2024-06-11 02:54 | XMS_ITS | Encounter Summary ---
Author Organization [facility] Address [facility] [place] [address] Care Team Providers Care Financial Associate Name Role Phone Jez Moisés MENDIOLA Primary Care Provider [phone] Encounter Details Date Type Department Care Team (Late st Contact Info) Description 05/08/2010 [place] [id number] Long Tapia MD [facility] [address] [place] [address] Social History Tobacco Use Types Packs/Day Years Used Date Smoking Tobacco: Never Assessed Sex and Gender Information Value Date Recorded Sex Assigned at Not on file Gender Identity Not on file Sexual Orientation Not on file documented as of this encounter Plan of Treatment Not on file documented as of this encounter Procedures Procedure Name Priority Date/Time Associated Diagnosis Comments GASTRIN Routine 05/10/2010 5:00 AM EST PATHOLOGY ADDENDUM REPORT Routine 05/09/2010 4:50 PM EST SURGICAL PATHOLOGY REPORT Routine 05/09/2010 4:50 PM EST CREATININE Routine 05/09/2010 5:20 AM EST BUN Routine 05/09/2010 5:20 AM EST TRIGLYCERIDE Routine 05/09/2010 5:20 AM EST TSH Routine 05/09/2010 5:20 AM EST LDL CHOLESTEROL, DIRECT Routine 05/09/2010 5:20 AM EST HDL/CHOL PROFILE Routine 05/09/2010 5:20 AM EST ELECTROLYTES PANEL Routine 05/09/2010 5: 20 AM EST URINALYSIS WITH REFLEX CULTURE STAT 05/08/2010 9:00 PM EST DIFFERENTIAL, AUTOMATED STAT 05/08/2010 6:25 PM EST CARDIAC ENZYMES (MC/CGP) STAT 05/08/2010 6:25 PM EST CREATININE STAT 05/08/2010 6:25 PM EST CBC (WITH DIFF) STAT 05/08/2010 6:25 PM EST BUN STAT 05/08/2010 6:25 PM EST PRO-BRAIN NATRIURETIC PEPTIDE STAT 05/08/2010 6:25 PM EST LIPASE STAT 05/08/2010 6:25 PM EST GLUCOSE STAT 05/08/2010 6:25 PM EST HEPATIC FUNCTION PANEL STAT 05/08/2010 6:25 PM EST ELECTROLYTES PANEL STAT 05/08/2010 6: 25 PM EST documented in this encounter Results * GASTRIN (05/10/2010 5:00 AM EST) [facility] Signature Gastrin (SEPTEMBER) 44 pg/mL [facility] Comment: -- REFERENCE VALUE -- <100 Reference ranges valid for >= 8 hour fast. Test Performed by: [facility] [address] [address] [employer] Manager: Masha Noguera, Ph.D. Blood specimen (specimen) 05/10/2010 5:00 AM EST 05/10/2010 10:18 AM EST Linda Schroeder MD LAB SEND OUT ORDERAB LES [facility] * PATHOLOGY ADDENDUM REPORT (05/09/2010 4:50 PM EST) Addendum Report ? [facility] ? Provider: ?? NATO WATTERS ? Pt. Name: ?? EDUARDO FROY Sandy ? Acc #: ?[id number] ?Pt. ? Col Date: ?? 05/09/2010 ?/Sex: ?1975,(3 7 years),Male ? Rec Date: ?? 05/09/2010 ?LOC: ?4WST ? ADDENDUM REPORT ? ---Addendum Discussion--- ? An immunostain for CMV is negative (performed on blocks B1 and B2). ? 05/23/10 ? VMS ? 05/23/10 Verified by: ? Coco HEATH, Cecil ? Pathologist ? (Electronic Signature) ? The attending pathologist whose signature appears on this report has ? reviewed all diagnostic slides and has edited the gross and/or ? microscopic portion of the report in rendering the final pathologic ? diagnosis. [facility] 05/09/2010 4:50 PM EST Nato Watters MD PATHOLOGY/CYTOLOGY O RDERABLES [facility] * PATHOLOGY SURGICAL PATHOLOGY FINAL REPORT (05/09/2010 4:50 PM EST) Surgical Pathology Report ? [facility] ? Provider: ?? NATO WATTERS ? Pt. Name: ?? EDUARDOFROY ? Acc #: ?[id number] ?Pt. ? Col Date: ?? 05/09/2010 ?/Sex: ?1975,(3 7 years),Male ? Rec Date: ?? 05/09/2010 ?LOC: ?4WST ? SURGICAL PATHOLOGY ? ---Pathologic Diagnosis--- ? Endoscopic biopsies - ? A. Duodenal mucosa within normal limits, including preserved villous ? architecture. ? B. Benign gastric mucosa with florid foveolar hyperplasia including dilated ? glands and lamina propria edema, consistent with Menetrier disease. ? Negative for H. pylori (Thiazine stain). ? No evidence of lymphoma. ? Congo red stain is negative for amyloid. ? CR-0 ? 05/10/10 ? AAS ? 05/10/10 Verified by: ? Murphy HEATH, Josie Roberts ? Pathologist ? (Electronic Signature) ? The attending pathologist whose signature appears on this report has ? reviewed all diagnostic slides and has edited the gross and/or ? microscopic portion of the report in rendering the final pathologic ? diagnosis. ? ---Microscopic Description--- ? Slides reviewed, microscopic description not recorded. ? ---Gross Description--- ? A - Labeled/Fixativ e: Small intestine duodenum, formalin. ? Qty/Size/Weight : ?Four, averaging 0.2 x 0.1 cm. ? Tissue Description: ?? Soft, torres-ayala tissues. ? Sections/Proces sing: ??(T1) ? B - Labeled/Fixativ e: Stomach random, formalin. ? Qty/Size/Weight : ?Multiple, averaging 0.2 cm in diameter. ? Tissue Description: ?? Soft, torres tissues. ? Sections/Proces sing: ??(T2) ??vms/PPS ? ---Clinical Information--- ? Specimen Submitted: ? A - Small intestine, duodenum ? B - Stomach, random ? Clinical History: ? [facility] ? Provider: ?? NATO WATTERS ? Pt. Name: ?? FROY CLARK ? Acc #: ?[id number] ?Pt. ? Col Date: ?? 05/09/2010 ?/Sex: ?1975,(3 7 years),Male ? Rec Date: ?? 05/09/2010 ?LOC: ?4WST ? SURGICAL PATHOLOGY ? Jar 1 small bowel ? celiac vs amyloid ? Jar 2 stomach severe diffuse gastritis with raised nodules ? amyloid vs ? lymphoma vs acute H. pylori vs severe alcoholic gastritis vs Menetrier ? disease - please stain with Congo red as well. ? Clinical Diagnosis: ? N/V [facility] [place] 05/09/2010 4:50 PM EST Nato Watters MD PATHOLOGY/CYTOLOGY O RDERABLES Performing Organization Address [facility] de Phone Number [facility] [place] * LDL CHOLESTEROL, DIRECT (05/09/2010 5:20 AM EST) LDL Cholesterol, Direct 87 <=99 mg/dL [facility] Comment: The National Cholesterol Education Program (NCEP) has set the following guidelines for LDL Cholesterol: Reference range: ?? Optimal: ?<100 mg/dL ?? Near Optimal/Above Optimal: ?? 100-129 mg/dL ?? Borderline high: ?130-159 mg/dL ?? High: ? 160-189 mg/dL ?? Very high: ?>aa=450 mg/dL MISSY 2001: 285(19):4100-7894 Blood specimen (specimen) 05/09/2010 5:20 AM EST 05/09/2010 6:01 AM EST Connor Barrios DO CHEMISTRY ORDERABLES Performing Organization Address [facility] Phone Number [facility] [place] * (ABNORMAL) HDL CHOLESTEROL (05/09/2010 5:20 AM EST) Cholesterol, Total 139 <=199 mg/dL [facility] Comment: Recommendations of the NCEP Adult Treatment Panel for the following risk cutoff thresholds for the [place] population: Desirable: <200 mg/dL Borderline High: 200-239 mg/dL High: > or = 240 mg/dL HDL Cholesterol 30(L) >=40 mg/dL [facility] Comment: Reference range: ??Low HDL: ?? < 40 mg/dL ??Normal: ?40-60 mg/dL ??Desirable: > 60 mg/dL MISSY 2001; 285(19):4139-8398 Cholesterol/HDL Ratio 4.6 ratio [facility] Comment: A Cholesterol to HDL ratio below 4:1 is desirable. ??Studies suggest that increased CAD risk occurs at ratios above 5 for females and above 6 for men. ? [place] Heart Association ??(http://www.americanheart.org) ? Kim Int Med, 1994; 121:641 ? AM J Med, 1998; 105(1A):48S Blood specimen (specimen) 05/09/2010 5:20 AM EST 05/09/2010 6:01 AM EST Connor Barrios DO CHEMISTRY ORDERABLES [facility] [place] * TSH (05/09/2010 5:20 AM EST) Thyroid Stimulating Hormone 3.66 0.27 - 4.20 mcIU/mL [facility] Comment: Cord Blood Reference Range: ??0.35 23.00 uIU/mL Blood specimen (specimen) 05/09/2010 5:20 AM EST 05/09/2010 6:01 AM EST Connor Barrios DO CHEMISTRY ORDERABLES [facility] [place] * (ABNORMAL) CREATININE, SERUM (05/09/2010 5:20 AM EST) Creatinine 0.77(L) 0.80 - 1.50 mg/dL [facility] Est Glomerular Filtration Rate >60 >=60 [facility] MILLENNIUM Comment: The National Kidney Disease Education [...] disease. References: http://nkdep.nih.gov/resources/NKDEP_Suggestn4Labs_0606_508.pdf http://www.kidney.org/professionals/kls/pdf/faq_gfr.pdf Blood specimen (specimen) 05/09/2010 5:20 AM EST 05/09/2010 6:01 AM EST Connor Barrios DO CHEMISTRY ORDERABLES Performing Organization Address [facility] de Phone Number [facility] SubblimeIUM * (ABNORMAL) BUN (05/09/2010 5:20 AM EST) Blood Urea Nitrogen 9(L) 10 - 20 mg/dL [facility] MILLENNIUM Blood specimen (specimen) 05/09/2010 5:20 AM EST 05/09/2010 6:01 AM EST Connor Barrios DO CHEMISTRY ORDERABLES Performing Organization Address [facility] de Phone Number [facility] WizzgoENNIUM * (ABNORMAL) ELECTROLYTE PANEL (05/09/2010 5:20 AM EST) Sodium 139 135 - 145 mmol/L [facility] MILLENNIUM Potassium 3.4(L) 3.5 - 5.0 mmol/L [facility] MILLENNIUM Comment: [...] 15 mmol/L [facility] MILLENNIUM Blood specimen (specimen) 05/09/2010 5:20 AM EST 05/09/2010 6:01 AM EST Connor Barrios DO CHEMISTRY ORDERABLES Performing Organization Address [facility] de Phone Number [facility] FLORESIUM * TRIGLYCERIDE (05/09/2010 5:20 AM EST) Triglyceride 140 <=149 mg/dL [facility] MILLENNIUM Comment: Reference Range: Normal triglycerides: ??<150 mg/dL Borderline high: ??150-199 mg/dL High: ??200-499 mg/dL Very high: ??>fs=204 mg/dL MISSY 2001; 28519):[id number] Fasting? Not Indicated [facility] RYANENNIUM Blood specimen (specimen) 05/09/2010 5:20 AM EST 05/09/2010 6:01 AM EST Connor Barrios DO CHEMISTRY ORDERABLES Performing Organization Address [facility] de Phone Number [facility] FLORESI[facility] * (ABNORMAL) URINALYSIS WITH MICROSCOPIC (05/08/2010 9:00 PM EST) Glucose, Urine Dipstick Negative Negative mg/dL [facility] MILLENNIUM Protein, Urine Dipstick Trace(A) Neg mg/dL [facility] MILLENNIUM Bilirubin, Urine Dipstick Negative Negative mg/dL [facility] MILLENNIUM Urobilinogen, Urine Dipstick Normal mg/dL [facility] MILLENNIUM pH, Urn (dipstick) 6.5 5.0 - 8.0 [facility] MILLENNIUM Blood, Urine Dipstick Negative mg/dL [facility] MILLENNIUM Ketone, Urine Dipstick Negative mg/dL [facility] MILLENNIUM Nitrite, Urine Dipstick Negative [facility] MILLENNIUM Leukocytes, Urine Dipstick Negative mcL [facility] MILLENNIUM Appearance, Urine Dipstick Hazy(A) Clear [facility] MILLENNIUM Specific Davin Urine Automated 1.020 1.002 - 1.030 [facility] MILLENNIUM Color, Urine Dipstick Yellow Yellow [facility] MILLENNIUM RBC, Urine Not Present 0 - 3 [facility] MILLENNIUM WBC, Urine 1 0 - 3 /HPF [facility] MILLENNIUM Bacteria, Urine Few /HPF [facility] MILLENNIUM Urine specimen (specimen) 05/08/2010 9:00 PM EST 05/08/2010 9:10 PM EST Long Tapia MD URINE ORDERABLES Performing Organization Address [facility] Co de Phone Number CERSIENNA MILLENNIUM * (ABNORMAL) BRAIN NATRIURETIC PEPTIDE (05/08/2010 6:25 PM EST) NT-proBNP 230(H) <=125 pg/mL [facility] MILLENNIUM Blood specimen (specimen) 05/08/2010 6:25 PM EST 05/08/2010 6:39 PM EST Long Tapia MD CHEMISTRY ORDERABLES Performing Organization Address [facility] de Phone Number [facility] MILLENNIUM * (ABNORMAL) ELECTROLYTE PANEL (05/08/2010 6:25 PM EST) Sodium 140 135 - 145 mmol/L CERNER MILLENNIUM Potassium 3.4(L) 3.5 - 5.0 mmol/L [facility] MILLENNIUM Comment: [...] - 31 mmol/L [facility]ERN[facility] MILLENNIUM Anion Gap 6 5 - 15 mmol/L [facility]ERN[facility] MILLENNIUM Blood specimen (specimen) 05/08/2010 6:25 PM EST 05/08/2010 6:39 PM EST Long Tapia MD CHEMISTRY ORDERABLES Performing Organization Address City/[facility] Co de Phone Number CERNER MILLENNIUM * CREATININE, SERUM (05/08/2010 6:25 PM EST) Creatinine 0.83 0.80 - 1.50 mg/dL [facility] Est Glomerular Filtration Rate >60 >=60 [facility] Comment: The National Kidney Disease Education Program [...] disease. References: http://nkdep.nih.gov/resources/NKDEP_Suggestn4Labs_0606_508.pdf http://www.kidney.org/professionals/kls/pdf/faq_gfr.pdf Blood specimen (specimen) 05/08/2010 6:25 PM EST 05/08/2010 6:39 PM EST Long Tapia MD CHEMISTRY ORDERABLES Performing Organization Address City/State/[facility] Co de Phone Number [facility] * BUN (05/08/2010 6:25 PM EST) Blood Urea Nitrogen 12 10 - 20 mg/dL [facility] Blood specimen (specimen) 05/08/2010 6:25 PM EST 05/08/2010 6:39 PM EST Long Tapia MD CHEMISTRY ORDERABLES Performing Organization Address City/State/[facility] de Phone Number [facility]ER[facility]NA DAVISENNIUM * GLUCOSE, RANDOM (05/08/2010 6:25 PM EST) Glucose 93 <=199 mg/dL [facility] MILLENNIUM Comment:Diabetes: >=200 mg/d L plus symptoms Blood specimen (specimen) 05/08/2010 6:25 PM EST 05/08/2010 6:39 PM EST Long Tapia MD CHEMISTRY ORDERABLES Performing Organization Address [facility] de Phone Number [facility] DAVISENNIUM * (ABNORMAL) LIPASE (05/08/2010 6:25 PM EST) Lipase 77(H) 0 - 60 unit/L [facility]ERNER MILLENNIUM Blood specimen (specimen) 05/08/2010 6:25 PM EST 05/08/2010 6:39 PM EST Long Tapia MD CHEMISTRY ORDERABLES Performing Organization Address [facility] de Phone Number CER[facility]ENNA DAVISENNIUM * (ABNORMAL) HEPATIC FUNCTION PANEL (05/08/2010 6:25 PM EST) Protein, Total 3.6(L) 6.4 - 8.3 gm/dL [facility]ERNER MILLENNIUM Albumin 2.1(L) 3.2 - 5.2 gm/dL [facility]ERN[facility] MILLENNIUM Aspartate Aminotransferase 38 0 - 39 unit/L [facility]ERNER MILLENNIUM Alanine Aminotransferase 51 0 - 55 unit/L CERNER MILLENNIUM Alkaline Phosphatase 42 40 - 120 unit/L CERNER MILLENNIUM Bilirubin, Total 0.1(L) 0.2 - 1.3 mg/dL [facility]ERN[facility] MILLENNIUM Bilirubin, Direct <0.1 0.0 - 0.3 mg/dL [facility]ERN[facility] MILLENNIUM Blood specimen (specimen) 05/08/2010 6:25 PM EST 05/08/2010 6:39 PM EST Long Tapia MD CHEMISTRY ORDERABLES Performing Organization Address [facility] de Phone Number [facility]ER[facility]NA DAVISENNIUM * CARDIAC ENZYME PANEL (05/08/2010 6:25 PM EST) [facility] Troponin-T <0.03 <=0.03 ng/mL CERNER RYANENNIUM Comment: 0.03 ng/mL: ??Represents the 99th percentile upper reference limit for normals >0.03 ng/mL: ??Elevated cardiac troponin T level indicative of myocardial damage Diagnosis of acute, evolving or recent CT requires a typical rise and gradual fall [...] consensus document of the Joint Society of Cardiology/[place] College of Cardiology Committee for the redefinition of myocardial infarction. Journal of the [place] College of Cardiology 2000; 36: 959-969] Creatine Kinase 145 0 - 200 unit/L CERNER RYANENNIUM Blood specimen (specimen) 05/08/2010 6:25 PM EST 05/08/2010 6:39 PM EST Long Tapia MD CHEMISTRY ORDERABLES [facility] * (ABNORMAL) REFLEX LAB-A-DIFF (05/08/2010 6:25 PM EST) Pathologist [facility] Neutrophil % 56.8 34.0 - 71.0 % CERNER MILLENNIUM Neutrophil Absolute 6.67(H) 1.50 - 6.30 x10(3)/mc L CERNER MILLENNIUM Lymph % 27.8 19.0 - 53.0 % CERNER MILLENNIUM Lymphocytes Abs 3.3 1.0 - 3.6 x10(3)/mc L CERNER MILLENNIUM Monocyte % 7.2 4.0 - 13.0 % CERNER MILLENNIUM Monocyte Abs 0.9 0.2 - 1.0 x10(3)/mc L CERNER MILLENNIUM Eos % 7.3(H) 0.0 - 7.0 % CERNER MILLENNIUM Eosinophils Abs 0.9(H) 0.0 - 0.5 x10(3)/mc L CERNER MILLENNIUM Basophil % 0.7 0.0 - 2.0 % CERNER MILLENNIUM Baso Absolute 0.1 0.0 - 0.2 x10(3)/mc L CERNER MILLENNIUM Immature Gran % 0.20 0.00 - 0.66 % CERNER MILLENNIUM Comment: Immature granulocytes(IG's)percentage and absolute count will include metamyelocytes, myelocytes, and promyelocytes. Blood smears from CBC's yielding IG's will be scanned manually for concordance. If this scan disagrees with the automated IG or if promyelocytes are noted, a manual differential will be performed. Immature Gran Absolute 0.02 0.00 - 0.05 x10(3)/mc L CERNER MILLENNIUM Blood specimen (specimen) 05/08/2010 6:25 PM EST 05/08/2010 6:39 PM EST Long Tapia MD HEMATOLOGY ORDERABLE S [facility] MILLENNIUM * (ABNORMAL) CBC (05/08/2010 6:25 PM EST) White Blood Cell 11.8(H) 4.0 - 10.0 x10(3)/mc L CERNER MILLENNIUM Red Blood Cell 5.10 4.63 - 6.08 x10(6)/mc L CERNER MILLENNIUM Hemoglobin 16.7 13.7 - 17.5 gm/dL CERNER MILLENNIUM Hematocrit 47.4 40.0 - 51.0 % CERNER MILLENNIUM Mean Cell Volume 92.9(H) 79.0 - 92.0 fL CERNER MILLENNIUM Mean Cell Hemoglobin 32.7(H) 25.6 - 32.2 pg CERNER MILLENNIUM Mean Cell Hemoglobin Concentration 35.2 32.0 - 36.5 gm/dL CERNER MILLENNIUM Platelet 321 145 - 370 x10(3)/mc L CERNER MILLENNIUM RDW Standard Deviation 46.0 35.0 - 46.0 fL CERNER MILLENNIUM RDW coefficient of variation 13.6 10.9 - 14.4 % [facility] MILLSHARYNIUM Mean Platelet Volume 9.3 9.0 - 12.0 fL [facility]ICA Blood specimen (specimen) 05/08/2010 6:25 PM EST 05/08/2010 6:39 PM EST Long Tapia MD HEMATOLOGY ORDERABLE S [facility] documented in this encounter Visit Diagnoses Not on filedocumented in this encounter Care Teams Financial Associate Relationship Specialty Start Date End Date Moisés Story APRN [address] [place] [address] PCP - General 05/09/10 08/30/10 documented as of this encounter
--- OUTSIDE RECORDS SUMMARY | 2024-06-11 02:54 | XMS_ITS | Encounter Summary ---
Author Organization [facility] Address [facility] [place] [address] Care Team Providers Care Product Safety Administrator Name Role Phone None Primary Care Provider Unavailabl e Encounter Details Date Type Department Care Team (Late st Contact Info) Description 05/19/2010 Orders Only Gastroenterology at [facility] [place] [address] Ming Ware MD Social History Tobacco Use [...] Associated Diagnosis Comments SURGICAL PATHOLOGY REPORT Routine 05/23/2010 3:56 PM EST documented in this encounter Results * Surgical Pathology Report (05/23/2010 3:56 PM EST) Surgical Pathology Report [id number] ? Location: 3EST; 0334; A The signing pathologist has (i) examined the relevant preparation(s) for the specimen(s) and (ii) rendered or confirmed the diagnosis(es). . ?Pathology Surgical Pathology Final Report Clinical Information Specimen Submitted: A - Gastric bx, gastric body Clinical History: 35 Y/O w/nausea, vomiting, abd pain. ??Thickened fold, ? Menetrier's disease vs juv polyposis vs other infiltrative process. Clinical Diagnosis: Nausea Gross Description Labeled/Fixative: ? Gastric bx gastric body, formalin. Qty/Size/Weight: ?Single, 1.5 x 0.5 x 0.5 cm. Tissue Description: ?? Brown, lobulated, congested, mucosal, ?polypoid lesion. Sections/Processing: ??The surgical margin is inked black. ??Serially ?sectioned. ??The ends are in (A1); the remainder ?in (A2). ??(T12) ??vms/SHB Microscopic Description Immunohistochemistry Studies: Formalin-fixed, paraffin-embedded tissue sections are studied using the B-SA system technique with appropriate positive and negative controls. ?These IHC studies provide the pathologist with adjunctive diagnostic information. Antibody specificity has been verified by testing antibodies on a series of in-house tissues with known immunohistochemical performance characteristics. The clinical interpretation of any antibody positive staining or its absence is evaluated within the context of clinical presentation, morphology, ??histopathological criteria and other diagnostic tests. Block ? Antibody ?Result (Positive/Negative) A1 ? H.pylori ? Negative ? CMV ?Negative A2 ? SMAD4 ?Positive, normal protein expression Diagnosis Stomach, body, biopsy: Gastric fundic gland mucosa with patchy full-thickness foveolar epithelium hyperplasia including dilated gastric pits (hyperplastic gastropathy)in the background of inflammed and mildly edematous lamina propria. In the area where gastric fundic glands remain, they are slightly atrophic with disproportionately thicker foveolar compartment. 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 (see Comment). . Diagnosis CR-0 05/25/10 AAS 05/25/10 Verified by: ? Murphy HEATH, Josie Roberts ?Pathologist ?(Electronic Signature) The attending pathologist whose signature appears on this report has reviewed all diagnostic slides and has edited the gross and/or microscopic portion of the report in rendering the final pathologic diagnosis. Comment Although the histologic features resemble both juvenile and gastric hyperplastic polyps, juvenile polyp characteristically shows more expanded, inflammed and edematous lamina propria, with cystically dilated glands and with polyps arising in superficial mucosa rather than full thickness foveolar hyperplasia. Both juvenile and gastric hyperplastic polyps are polypoid lesions endoscopically rather than just thickening of gastric folds. SMAD4 mutation is often observed in patients with juvenile polyposis (SMAD4 expression is intact in this case). Therefore, in conjunction with clinical findings, the diagnosis of hyperplastic gastropathy in Menetrier disease is favored. [facility] 05/23/2010 3:56 PM EST Ming Ware MD PATHOLOGY/CYTOLOGY O LAILA [facility] documented in this encounter Visit Diagnoses Not on filedocumented in this encounter Care Teams Product Safety Administrator Relationship Specialty Start Date End Date None None PCP - General 07/27/14 documented as of this encounter
--- OUTSIDE RECORDS SUMMARY | 2024-06-11 02:54 | XMS_ITS | Encounter Summary ---
Author Organization [facility] Address [address] [place] [address] Care Team Providers Care Cancer Program Consultant Name Role Phone Unavailable Primary Care Provider Unavailabl e Encounter Details Date Type Department Care Team (Late st Contact Info) Description 08/05/2008 Before PRISM Converted Visit (Maple) [facility] Medicine [address] [phone] Bony Martin MD [address] [place] [address] Social History Tobacco Use Types Packs/Day Years [...] Priority Date/Time Associated Diagnosis Comments SURGICAL PATHOLOGY Routine 08/05/2008 0:00 EDT documented in this encounter Results * SURGICAL PATHOLOGY (08/05/2008 0:00 EDT) Pathology Report: SURGICAL PATHOLOGY REPORT ? Reports generated via electronic interface contain original data; ? however they are lacking the format of the original report. ? Caution should be taken when reading/interpreti ng unformatted reports. ? Name: ? PAYEUR, FROY R ? Accession #: ? [id number] ? : ? 1975 (Age: 33) ??M ? Collect Date: ? 08/05/2008 ? Location: ? [facility] ? Receive Date: ? 08/06/2008 ? Provider: BONY NAMITAO MD ? Copy to: KOURTNEY HICKS MD ? Final Pathologic Diagnosis: ? A. ?Colon, cecum, polyp, biopsy: ? 1. ?Fragments of tubular adenoma(s). ? B. ?Colon, ascending, polyp, biopsy: ? 1. ?Fragments of tubular adenoma(s). ? C. ?Colon, descending, polyp, biopsy: ? 1. ?Hyperplastic polyp. ??See comment. ? Comment: ? Deeper sections of (C) were examined. ??(Dr. Gooden)/kmm ? Document reviewed and electronically signed by: ? Kamryn N. Kalof, MD ? Report ??Date: 08/11/2008 15:21 ? By the signature above, the attending physician certifies that he/she has ? personally conducted a gross and/or microscopic examination of the described ? specimens and rendered or confirmed the above diagnosis. ? Specimen(s) Received: ? A. ?Cecal polyp ? B. ? Ascending colon polyp ? C. ? Descending colon polyp ? Clinical History: ? Rectal bleeding ? Gross Description: ? Received in Aissatou's fixative labelled [place]roy [place] and cecal polyp are two torres-pink soft tissues averaging 0.3 x 0.3 x 0.2 cm. ??The specimen is ? entirely submitted as (A). ? Received in Luise's fixative labelled Froy [place] and ascending colon ?? polyp is a torres-pink, 0.5 x 0.2 x 0.2 cm soft tissue fragment. ??The specimen is entirely submitted as (B). ? Received in Aissatou's fixative labelled Payer, Froy and descending colon ?? polyp is a torres-pink, 0.3 x 0.2 x 0.2 cm soft tissue fragment. ??The specimen is entirely submitted as (C). ??(Keny Cain)/[facility] ? End of Report ? [facility] 08/05/2008 08/06/2008 9:3 7 EDT us Bony Martin MD PATHOLOGY ORDERABLES Final Resul t [facility] [address] [place] [address] documented in this encounter Visit Diagnoses Not on filedocumented in this encounter
--- OUTSIDE RECORDS SUMMARY | 2024-06-11 02:54 | XMS_ITS | Encounter Summary ---
Author Organization [facility] [place] [address] Care Team Providers Care Marketing Campaign Analyst Name Role Phone Moisés Story APRN Primary Care Provider [phone] Encounter Details Date Type Department Care Team (Late st Contact Info) Description 06/13/2010 2:00 PM EST Office Visit Cardiology at [address] [phone] Ming Akins MD Discharge Disposition: Home Social History Tobacco [...] on filedocumented in this encounter Care Teams Marketing Campaign Analyst Relationship Specialty Start Date End Date Moisés Story APRN [address] [place] [address] PCP - General 05/09/10 08/30/10 documented as of this encounter
--- OUTSIDE RECORDS SUMMARY | 2024-06-11 02:54 | XMS_ITS | Encounter Summary ---
Author Organization [facility] [place] [address] Care Team Providers Care White Metal Corrosion Proofer Name Role Phone Moisés Story APRN Primary Care Provider [phone] Encounter Details Date Type Department Care Team (Latest Contact Info) Description 05/08/2010 4:09 PM EST - 05/10/2010 1:29 PM [facility] Encounter [address] [place] [address] Long Tapia MD [facility] [address] [place] [address] Connor Barrios DO Ryder, Hilary F, MD Discharge Disposition: Home with [facility]NA Social History Tobacco Use Types Packs/Day Years Used Date Smoking Tobacco: Never Assessed Sex and Gender Information Value Date Recorded Sex Assigned at Not on file Gender Identity Not on file Sexual Orientation Not on file documented as of this encounter Plan of Treatment Not on file documented as of this encounter Visit Diagnoses Not on filedocumented in this encounter Care Teams White Metal Corrosion Proofer Relationship Specialty Start Date End Date Moisés Story APRN [address] [place], [place] [address] PCP - General 05/09/10 08/30/10 documented as of this encounter
[2024-06-11 18:12] LABS: PSA, Diagnostic 1.2 ng/mL (<=3.5)
== END 2024-06-11 02:17 | disposition home or self-care (01) ==
LOC: LBO 02:16
PROVIDERS: PCP Nurse Practitioner Family; Visit Provider Nurse Practitioner Family
DX: N40.1 Benign prostatic hyperplasia with lower urinary tract symptoms (principal); N13.8 Other obstructive and reflux uropathy
CPT/HCPCS: 36415; 84153